=== PATIENT | female | born 1995 | race Hispanic/Latino ===

== ENCOUNTER 2023-04-20 10:51 | Emergency (ER) | payer OTHER, SELFPAY ==
[2023-04-20 11:11] VITALS: BP 121/63; PULSE 99; RESP 16; TEMP 36.7; O2SAT 100
[2023-04-20 11:13] VITALS: BP 121/63; PULSE 99; RESP 16; TEMP 36.7; O2SAT 100
--- NOTE | 2023-04-20 11:58 | ED.FEMALEGU ---
HPI - Female Genitourinary General Chief complaint: Urogenital-Female Stated complaint: UTI/Vaginal Problems Time Seen by Provider: 04/20/23 11:45 Source: patient and certified court/medical interpreter Mode of arrival: ambulatory Limitations: no limitations History of Present Illness HPI Narrative: Patient presents today with a 5 day history of dysuria, urinary frequency with malodorous urine, redness, swelling, and itching to the external genitalia with some yellow vaginal discharge. Canal patient has tried no gapr-hay-vdogilg treatment prior to arrival. Denies concerns for sexually transmitted infections. She is 3 months . Related Data Allergies Allergy/AdvReac Type Severity Reaction Status Date / Time No Known Allergies Allergy Verified 04/20/23 11:12 Review of Systems Review of Systems: CONSTITUTIONAL: Denies body aches, fever, chills, or sweats. EYES: Denies visual changes, redness, or discharge. ENT: Denies rhinorrhea, congestion, sore throat, or otalgia. CARDIOVASCULAR: Denies chest pain, palpitations, or edema. RESPIRATORY: Denies cough or dyspnea. GASTROINTESTINAL: Denies abdominal pain, nausea, vomiting, or diarrhea. GENITOURINARY: + dysuria, frequency, malodorous urine, vaginal discharge, vulvar itching SKIN: Denies rash, itching, or wounds. MUSCULOSKELETAL: Denies back pain, joint pain, or myalgia. NEUROLOGIC: Denies headache, numbness, tingling, or weakness. PSYCH: Denies depression or anxiety. PMFSH Comments At time of signature, I have reviewed and agree with nursing past medical, surgical, social and family history unless otherwise noted. Please see nursing chart for further information. There is no relevant family history pertinent to the presenting complaint Exam Narrative: GENERAL: Well-appearing, well-nourished, and in no acute distress. HEAD: Normocephalic, atraumatic. EYES: EOMI. No redness or drainage. Conjunctivae normal. ENT: Mucous membranes pink and moist. NECK: Normal AROM. CHEST: No respiratory distress. : There is thick white discharge present on the vulva. EXTREMITIES: Normal range of motion. No edema. SKIN: Warm, dry, no rash. Capillary refill normal. Normal skin turgor. NEURO: No focal deficits. Alert and oriented x3. Gait steady. PSYCH: Normal affect. No signs of depression or anxiety. Course Course Level of Care: Express Care Visit Vital Signs Vital signs: Vital Signs Temperature 98.1 F 04/20/23 11:11 Pulse Rate 99 04/20/23 11:11 Respiratory Rate 16 04/20/23 11:11 Blood Pressure 121/63 04/20/23 11:11 Pulse Oximetry 100 04/20/23 11:11 Oxygen Delivery Room Air 04/20/23 11:11 Temperature 98.1 F 04/20/23 11:13 Pulse Rate 99 04/20/23 11:13 Respiratory Rate 16 04/20/23 11:13 Blood Pressure 121/63 04/20/23 11:13 Pulse Oximetry 100 04/20/23 11:13 Oxygen Delivery Room Air 04/20/23 11:13 Reviewed MDM - Female Genitourinary MDM Narrative Medical decision making narrative: Due to patient's urinary symptoms, will treat her with Macrobid as she is . Will also treat her with fluconazole due to her exam findings of likely Sigrid. Differential Diagnosis Differential diagnosis: Likely urinary tract infection, vaginitis and cystitis Lab Data Attestation: I reviewed the patient's lab results. Labs: Urine Glucose Negative Reference Range: Negative Urine Bilirubin Negative Reference Range: Negative Urine Ketone Negative Reference Range: Negative Urine Specific Zanoni 1.020 Reference Range:1.001-1.035 Urine Blood Negative Reference Range: Negative * *
== END 2023-04-20 12:16 | disposition home or self-care (01) ==
PROVIDERS: Emergency Provider Nurse Practitioner; PCP Emergency Medicine
DX: N76.0 Acute vaginitis (principal); N30.00 Acute cystitis without hematuria
CPT/HCPCS: 81003; 87086; 87088; 99213; G0463

== ENCOUNTER 2023-05-25 17:21 | Emergency (ER) | payer OTHER, SELFPAY ==
--- NOTE | 2023-05-25 17:23 | ED.FEMALEGU ---
HPI - Female Genitourinary General Chief complaint: Urogenital-Female Stated complaint: urinary issue,back pain Time Seen by Provider: 05/25/23 17:23 Source: patient Mode of arrival: ambulatory Limitations: no limitations History of Present Illness HPI Narrative: Patient is a 28-year-old female that presents with 5 days of burning with urination, increased frequency and urgency. Patient reports low back pain started yesterday. Denies any fever, chills, nausea, vomiting, diarrhea. Reports last UTI was a long time ago. MD elicited complaint: dysuria Related Data Allergies Allergy/AdvReac Type Severity Reaction Status Date / Time No Known Allergies Allergy Verified 05/25/23 17:58 Review of Systems Review of Systems: All systems reviewed & are unremarkable except as noted in HPI and below Constitutional: Constitutional: Denies chills, Denies fever(s), Denies headache(s), Denies malaise and Denies weakness Eyes: Eyes: Denies change in vision, Denies eye discharge and Denies irritation ENT: Denies otalgia, Denies headache(s), Denies nasal congestion, Denies nasal discharge, Denies sinus pain and Denies sore throat Cardiovascular: Cardiovascular: Denies chest pain, Denies edema, Denies palpitations and Denies dyspnea Respiratory: Respiratory: Denies cough and Denies dyspnea Gastrointestinal: Gastrointestinal: Denies abdominal pain, Denies diarrhea, Denies nausea and Denies vomiting Genitourinary: Genitourinary: Denies hematuria, Reports nocturia, Reports dysuria, Reports flank pain and Reports urinary urgency Musculoskeletal: Musculoskeletal: Denies back pain and Denies numbness Integumentary/Breasts: Skin/Breast: Denies pruritus and Denies rash Neurologic: Denies headache(s), Denies numbness and Denies weakness Psychiatric: Psychiatric: Reports no additional psychiatric complaints Endocrine: Endocrine: Denies palpitations PMFSH Comments At time of signature, agree with nursing past medical, surgical, social and family history. There is no relevant family history pertinent to the presenting complaint. Exam Const: General: cooperative, healthy appearing, comfortable, no acute distress and well nourished Nutritional Appearance: well nourished Orientation/consciousness: patient oriented x3 HENMT: Head: normocephalic and atraumatic Ears: external ears normal Face/Nose/Sinus: Normal external nose present, Normal nares present and normal facial exam Face and sinus: normal facial exam Eyes: General: appearance normal, both eyes and all related structures Pupils: Equal, round and reactive pupils present EOM: EOMs intact bilaterally Neck: Neck: normal visual inspection, full ROM and supple Chest: Chest palpation & inspection: normal inspection of the chest Resp: Effort & Inspection: normal respiratory effort and able to speak in complete sentences Cardio: Rate: regular rate Rhythm: regular rhythm GI: Inspection: normal to inspection GI Palp: No abdominal tenderness and Yes Soft to palpation : General: Yes no CVA tenderness Back/Spine/Pelvis: Back: no CVA tenderness Skin: General skin exam: normal color and no rashes or lesions noted Neuro: General: patient oriented x3 and moves all extremities Cranial nerves: Yes Equal, round and reactive pupils present Extrem: General: normal to inspection and full ROM Psych: Appearance: grossly normal and well kempt Course Course Emergency Course: Patient is aware of diagnosis, understands and agrees to treatment plan. Anticipatory guidance given. Patient agrees to follow-up as directed and is aware of reasons to seek care at the emergency department. Portions of this record may have been created with voice recognition software Level of Care: Express Care Visit Vital Signs Vital signs: Vital Signs Temperature 37.8 C H 05/25/23 17:43 Pulse Rate 111 H 05/25/23 17:43 Respiratory Rate 16 05/25/23 17:43 Blood Pressure 133/70 05/25/23 17:43 Pulse
[2023-05-25 17:43] VITALS: BP 133/70; PULSE 111; RESP 16; TEMP 37.8; O2SAT 99
== END 2023-05-25 18:04 | disposition home or self-care (01) ==
PROVIDERS: Emergency Provider Nurse Practitioner Family
DX: N30.01 Acute cystitis with hematuria (principal)
CPT/HCPCS: 81003; 87077; 87086; 87088; 99203; G0463

== ENCOUNTER 2023-06-15 18:10 | Emergency (ER) | payer OTHER, SELFPAY ==
[2023-06-15] VITALS (7 sets, daily range): BP systolic 105–177; BP diastolic 69–90; PULSE 78–88; RESP 14–16; TEMP 36.5–36.7; O2SAT 97–100
--- NOTE | ~2023-06-15 | CT_ITS ---
EXAMINATION: CT brain wo con INDICATION: Left-sided numbness COMPARISON: None TECHNIQUE: Standard unenhanced head CT. The dose-length product (DLP) was 605.33 mGy-cm. The mA was a djusted according to patient size. Iterative reconstruction technique was employed. FINDINGS: No intracranial hemorrhage, acute infarction, or abnormal mass lesion. The ventricles are n ormal. No abnormal mass effect or midline shift. The wylie-white matter differentiation is normal. The basal cisterns are patent. The orbits are normal. The paranasal sinuses, mastoids and calvarium are normal. IMPRESSION: 1. No acute intracranial abnormality. Reviewed, dictated and finalized at location F. 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
--- NOTE | 2023-06-15 23:05 | PC.NURSE ---
Assumed care of pt. Bedside report from SAVANNA Ackerman. Pt resting quietly per cart with family at bedside. Awaiting erp eval.
[2023-06-16] VITALS: O2SAT 100
--- NOTE | 2023-06-16 | ED.GENADULT ---
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 Reports paresthesias to the left side of the face, entire left arm and entire left leg. Reports that using the arm and putting pressure on the leg seem to worsen the tingling. Denies any loss of strength. Denies speech change, facial droop, confusion, vision change, fevers, chills, headache, neck pain. <Jonathan Dennison PA-C - Last Filed: 06/16/23 03:29> Related Data Allergies/adverse reactions: Allergies Allergy/AdvReac Type Severity Reaction Status Date / Time No Known Allergies Allergy Verified 05/25/23 17:58 <Jonathan Dennison PA-C - Last Filed: 06/16/23 03:29> Review of Systems Review of Systems: All systems as dictated in HPI <CROW Mathews Last Filed: 06/16/23 03:29> Exam Narrative: GENERAL: Well-appearing, well-nourished, and in no acute distress. HEAD: Normocephalic, atraumatic. EYES: PERRLA and EOMI. ENT: Nares clear, no rhinorrhea or epistaxis. Mucous membranes moist. Oropharynx without tonsillar hypertrophy exudate or other lesions. NECK: Supple. No adenopathy or masses. CHEST: No respiratory distress. Clear to auscultation. No wheezes rales or rhonchi HEART: Regular rate and rhythm. No murmur heard. Normal peripheral pulses. ABDOMEN: Soft, nontender, nondistended, normal active bowel sounds. MSK: Normal range of motion. No edema. SKIN: Warm, dry, no rash. no area of erythema or warmth. NEURO: Alert and oriented x4. Cranial nerves 2-12 intact. 5/5 strength and sensation throughout the upper and lower extremities. normal [id number]. Normal heel to paulino. Negative pronator drift PSYCH: Normal mood and affect. <Jonathan Dennison PA-C - Last Filed: 06/16/23 03:29> Course AUTOMATION ARCHITECT/PA Physician Supervision For this patient encounter, I reviewed the AUTOMATION ARCHITECT or PA documentation, treatment plan, and medical decision making and/or I had [id number]-[id number] time with this patient. I performed all aspects of the MDM as documented. <Rocio Braswell MD - Last Filed: 06/19/23 22:26> Vital Signs Vital signs: Vital Signs Temperature 97.7 F 06/15/23 19:18 Pulse Rate 82 06/15/23 19:18 Respiratory Rate 16 06/15/23 19:18 Blood Pressure 130/76 06/15/23 19:18 Pulse Oximetry 100 06/15/23 19:18 Temperature 98.0 F 06/15/23 22:19 Pulse Rate 74 06/16/23 02:07 Respiratory Rate 14 06/16/23 02:07 Blood Pressure 123/71 06/16/23 02:07 Pulse Oximetry 97 06/16/23 02:07 <Jonathan Dennison PA-C - Last Filed: 06/16/23 03:29> Vital Signs Temperature 97.7 F 06/15/23 19:18 Pulse Rate 82 06/15/23 19:18 Respiratory Rate 16 06/15/23 19:18 Blood Pressure 130/76 06/15/23 19:18 Pulse Oximetry 100 06/15/23 19:18 Temperature 98.0 F 06/15/23 22:19 Pulse Rate 74 06/16/23 02:07 Respiratory Rate 14 06/16/23 02:07 Blood Pressure 123/71 06/16/23 02:07 Pulse Oximetry 97 06/16/23 02:07 <Rocio Braswell MD - Last Filed: 06/19/23 22:26> Medical Decision Making MDM Narrative Medical decision making narrative: This is a 28-year-old female who presents to the ED with chief complaint of left-sided facial, arm and leg pares
[2023-06-16 00:03] VITALS: BP 124/94; PULSE 81; RESP 16; O2SAT 100
[2023-06-16 00:15] VITALS: O2SAT 100
[2023-06-16 00:30] VITALS: O2SAT 100
[2023-06-16 00:30] LABS: Basophils Absolute Auto 0.1 K/mm3 (0.0-0.1); Basophils Percent Auto 0.6 % (0.2-1.2); Eosinophils Absolute Auto 0.1 K/mm3 (0-0.3); Hematocrit 37.4 % (37.0-47.0); Hemoglobin 11.8 g/dL (12.0-15.0); Immature Granulocyte Absolute 0.04 K/mm3 (0.00-0.031); Immature Granulocyte Percent A 0.4 % (0-0.5); Lymphocytes Absolute Auto 3.12 K/mm3 (0.9-3.2); Lymphocytes Percent Auto 29.4 % (18.3-44.2); Mean Corpuscular HGB Conc 31.6 g/dl (32-36); Mean Corpuscular Hemoglobin 28.6 pg (26-34); Mean Corpuscular Volume 90.6 fl (80-100); Mean Platelet Volume 9.9 fl (7.4-10.4); Monocytes Absolute Auto 0.9 K/mm3 (0.1-0.6); Monocytes Percent Auto 8.4 % (2.6-8.5); Neutrophils Absolute Auto 6.4 K/mm3 (1.3-6.7); Neutrophils Percent Auto 60.2 % (45.5-73.1); Platelet Count Result 351 k/mm3 (150-375); Red Blood Count 4.13 M/mm3 (4.2-5.4); Red Cell Distribution Width 13.8 % (11.5-14.5); White Blood Count 10.6 K/mm3 (4.5-10.0)
--- NOTE | 2023-06-16 00:39 | ECG_ITS ---
Measurements Intervals [place] Rate: 85 P: 59 MT: 145 QRS: 40 QRSD: 86 T: 38 QT: 367 QTc: 438 Interpretive Statements SINUS RHYTHM NO PREVIOUS ECG AVAILABLE FOR COMPARISON Electronically Signed On 06-16-2023 12:32:24 GENETIC SCIENTIST by Glenn Troncoso M.D.
[2023-06-16 00:41] LABS: Alanine Aminotransferase 25 U/L (6-35); Albumin Level 4.3 g/dL (3.5-5.1); Alkaline Phosphatase 101 U/L (38-126); Anion Gap 7 mmol/L (8-16); Aspartate Amino Transferase 29 U/L (14-36); Bilirubin,Total 0.5 mg/dL (0.2-1.3); Blood Urea Nitrogen 13 mg/dL (7-17); Calcium 9.3 mg/dL (8.4-10.2); Carbon Dioxide 25 mmol/L (22-30); Chloride 106 mmol/L (98-107); Estimated Glomerular Filt Rate > 60; Glucose 109 mg/dL (65-110); INR 1.1; Potassium 3.3 mmol/L (3.4-5.0); Prothrombin Time 14.5 Seconds (11.1-14.7); Sodium 138 mmol/L (137-145)
[2023-06-16 00:42] LABS: Partial Thromboplastin Time 35.1 SECONDS (22.3-36.8)
[2023-06-16 00:45] VITALS: O2SAT 100
[2023-06-16 00:52] LABS: Troponin I < 0.012 ng/mL (0.000-0.034)
[2023-06-16 01:11] LABS: Appearance Urine Cloudy (Clear); Bacteria Urine 2+ /hpf; Bilirubin Urine Negative (Negative); Blood Urine 3+ (Negative); Color Urine Yellow (Yellow); Glucose Urine UA Negative (Negative); Ketones Urine Negative (Negative); Leukocyte Esterase Ur 1+ LEU/UL (Negative); Nitrate Urine Negative (Negative); Non Pathogenic Casts 0-2; Protein Urine Trace mg/dL (Negative); RBC Urine 21-50 /hpf (0-2); Specific Grav Ur 1.023 (1.001-1.035); Squamous Epithelial Cell Urine Moderate /hpf (Few); Urobilinogen Urine 0.2 mg/dL (<2.0); WBC Urine 21-50 /hpf
[2023-06-16 01:19] LABS: Pregnancy On Board Control Positive; Urine Pregnancy Test Negative
[2023-06-16 02:07] VITALS: BP 123/71; PULSE 74; RESP 14; O2SAT 97
[2023-06-16 02:07] LABS: Add Urine Microscopic? YES
== END 2023-06-16 02:08 | disposition home or self-care (01) ==
PROVIDERS: Emergency Provider Physician Assistant; PCP Registered Nurse
DX: R20.2 Paresthesia of skin (principal)
CPT/HCPCS: 36415; 70450; 80053; 81001; 81025; 84484; 85025; 85610; 85730; 87086; 93005; 99284

== ENCOUNTER 2023-07-07 12:17 | Emergency (ER) | payer OTHER, SELFPAY ==
[2023-07-07 12:44] VITALS: BP 128/90; PULSE 106; RESP 16; TEMP 37.2; O2SAT 99
--- NOTE | 2023-07-07 13:45 | ED.URI ---
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 No chest pain or shortness of breath. Patient has felt feverish and has taken naproxen. Denies nausea vomiting diarrhea. All systems reviewed and negative except as noted above. Related Data Home Medications Medication Instructions Recorded Confirmed propranolol 40 mg tablet 40 mg PO BID 07/07/23 07/07/23 Allergies Allergy/AdvReac Type Severity Reaction Status Date / Time No Known Allergies Allergy Verified 07/07/23 12:48 Review of Systems Review of Systems: CONSTITUTIONAL: Denies fever, chills, or sweats. EYES: Denies visual changes, redness, or discharge. ENT: Reports rhinorrhea, congestion, sore throat. Denies otalgia. CARDIOVASCULAR: Denies chest pain, palpitations, or edema. RESPIRATORY: reports cough. Denies dyspnea. GASTROINTESTINAL: Denies abdominal pain, nausea, vomiting, or diarrhea. GENITOURINARY: Denies dysuria or hematuria. SKIN: Denies rash or itching. MUSCULOSKELETAL: Denies back pain, joint pain, or myalgia. NEUROLOGIC: Denies headache, numbness, or weakness. PSYCHIATRIC: Denies anxiety or depression. All other systems reviewed are negative, except as documented in HPI. PMFSH Comments At time of signature, agree with nursing past medical, surgical, social and family history. There is no relevant family history pertinent to the presenting complaint. Exam Narrative: GENERAL: This is a well-nourished, well-developed patient, in no apparent distress. HEAD: normocephalic, atraumatic. EYES: PERRL. Sclera clear/white. Vision is grossly intact. EARS: External ears normal, auditory canals clear and without drainage, TMs normal without perforation. Hearing grossly intact. NOSE: External nose normal with clear nasal drainage, mild erythema to nares. THROAT: Mucous membranes moist, Mild erythema without swelling or exudates. NECK: Neck supple, non-tender without lymphadenopathy, masses or thyromegaly. CARDIOVASCULAR: Regular rate and rhythm without murmurs, gallops, or rubs. RESPIRATORY: Clear to auscultation. Breath sounds equal bilaterally. No wheezes, rales, or rhonchi. SKIN: warm, Dry, intact with no suspicious lesions or rash, good texture and turgor. NEURO: awake, alert, and oriented to person, place and time. There were no obvious focal neurologic abnormalities. EXTREMITIES: No joint tenderness, effusion, or edema noted. Course Course Level of Care: Express Care Visit Vital Signs Vital signs: Vital Signs Temperature 37.2 C 07/07/23 12:44 Pulse Rate 106 H 07/07/23 12:44 Respiratory Rate 16 07/07/23 12:44 Blood Pressure 128/90 07/07/23 12:44 Pulse Oximetry 99 07/07/23 12:44 Oxygen Delivery Room Air 07/07/23 12:44 Temperature 37.2 C 07/07/23 12:44 Pulse Rate 106 H 07/07/23 12:44 Respiratory Rate 16 07/07/23 12:44 Blood Pressure 128/90 07/07/23 12:44 Pulse Oximetry 99 07/07/23 12:44 Oxygen Delivery Room Air 07/07/23 12:44 Reviewed MDM - URI/Sore Throat MDM Narrative Medical decision making narrative: Patient is aware of diagnosis, understands and agrees to treatment plan. Anticipatory guidance given. Patient agrees to follow-up as directed and is aware of reasons to seek care at the emergency department. Portions of this record may have been created with voice recognition software Differential Diagnosis Differential diagnosis: Likely other ( COVID-19) Discharge Plan Discharge Clinical Impression: COVID-19 Patient Disposition: Home, Self-Care Condition: Stable Instructions: COVID-19 (Coronavir
== END 2023-07-07 14:35 | disposition home or self-care (01) ==
PROVIDERS: Emergency Provider Nurse Practitioner Family; PCP Registered Nurse
DX: U07.1 COVID-19 (principal)
CPT/HCPCS: 87081; 87426; 87804; 87880; 99213; G0463

== ENCOUNTER 2023-08-31 09:33 | Outpatient (CLI) | payer OTHER, SELFPAY ==
[2023-08-31 10:26] LABS: Hemoglobin A1C 5.5 % (<5.7)
[2023-08-31 10:45] LABS: Free T4 Free Thyroxine 0.98 ng/mL (0.78-2.19)
[2023-09-02 07:34] LABS: Triiodothyronine T3 Free 3.4 pg/mL (2.3-4.2)
[2023-09-03 21:04] LABS: Red Blood Cell Folate 540 ng/mL RBC (>280)
[2023-09-05 11:18] LABS: Vitamin D 1,25 (OH)2 Total 33 pg/mL (18-72); Vitamin D2 1,25 (OH)2 <8 pg/mL; Vitamin D3 1,25 (OH)2 33 pg/mL
== END 2023-08-31 09:34 | disposition home or self-care (01) ==
LOC: ANHLAB 09:35
PROVIDERS: PCP Registered Nurse; Visit Provider Psychiatry & Neurology Neurology
DX: E55.9 Vitamin D deficiency, unspecified (principal); R20.0 Anesthesia of skin; G43.909 Migraine, unspecified, not intractable, without status migrainosus
CPT/HCPCS: 36415; 82607; 82652; 82747; 83036; 84439; 84481; 86038; 86039

== ENCOUNTER 2023-09-13 15:41 | Outpatient (CLI) | payer OTHER, SELFPAY ==
--- NOTE | ~2023-09-13 | MR_ITS ---
EXAMINATION: MR brain/brain stem wo/w con DATE: 09/13/2023 16:33 INDICATION: Multiple sclerosis. Headache. Left-sided numbness. TECHNIQUE: Magnetic resonance imaging (MRI) of the brain and brainstem was performed without and with 13 mL MultiHance intravenous contrast. COMPARISON: Head CT 06/16/2023 FINDINGS: There is no intracranial hemorrhage, acute infarction, or abnormal intracranial mass lesion . The ventricles are normal in size. There is mucosal thickening in the paranasal sinuses. The orbits are normal. The mastoid air cells are normal. IMPRESSION: 1. Normal brain. Reviewed, dictated and finalized at location E. IMPRESSION: 1. Normal brain.
== END 2023-09-13 15:42 | disposition home or self-care (01) ==
LOC: ANHIMG 15:42
PROVIDERS: PCP Registered Nurse; Visit Provider Psychiatry & Neurology Neurology
DX: G35 Multiple sclerosis (principal); R20.0 Anesthesia of skin; G43.909 Migraine, unspecified, not intractable, without status migrainosus
CPT/HCPCS: 70553; A9577

== ENCOUNTER 2023-09-21 13:21 | Emergency (ER) | payer OTHER, SELFPAY ==
[2023-09-21 13:22] VITALS: BP 90/74; PULSE 100; RESP 22; TEMP 36.6; O2SAT 100
--- NOTE | 2023-09-21 15:03 | PC.NURSE ---
called patient to room, no answer from waiting room
== END 2023-09-21 15:03 | disposition left against medical advice (07) ==
LOC: ANHED 15:42
PROVIDERS: PCP Registered Nurse
DX: R42 Dizziness and giddiness (principal)
CPT/HCPCS: 99199

== ENCOUNTER 2023-10-02 12:43 | Outpatient (CLI) | payer OTHER, SELFPAY ==
--- NOTE | 2023-10-02 12:59 | ECHO_ITS ---
Patient Info Name: Og Hines Age: 28 years : 1995 Gender: Female Ht: 59 in Wt: 142 lbs BSA: 1.66 m2 HR: 76 bpm Technical Quality: Fair Exam Date: 10/02/2023 1:17 PM Exam Location: Echo Lab Patient Status: Outpatient Admit Date: 10/02/2023 Staff Ordering Physician: Calixto Dukes MD Assembly Cleaner: Fabienne Fernández RDCS Attending Provider: Calixto Dukes MD Referring Physician: Ernst RODRIGUEZ; Exam Type: CA echo doppler w bubble study Study Info Indications - G43.909 Migraine Complete two-dimensional, color flow and Doppler transthoracic echocardiogram is performed with agitated saline. Contrast/Agitated Saline Contrast/Ag. Saline: Agitated Saline Amount: 21.00 ml IV Access Condition: patent with no signs of infiltration Summary 1. Left ventricular chamber dimension is normal. 2. Left ventricular systolic function is normal, estimated at 65-70%. 3. The left ventricular diastolic function is normal. 4. E/e' 8 is minimally elevated. 5. Agitated saline injection with and without valsalva maneuver opacified right side cardiac chambers with shunt of few bubbles (<5) to left sided cardiac chambers suggestive of patent foramen ovale. Left Ventricle E/e' 8 is minimally elevated. Left ventricular chamber dimension is normal. Left ventricular systolic function is normal, estimated at 65-70%. The left ventricular diastolic function is normal. Right Ventricle Right ventricular chamber dimension is normal. Right ventricular systolic function is normal. Left Atria Left atrial chamber dimension is normal. Right Atria Right atrial chamber dimension is normal. Atrial Septum Agitated saline injection with and without valsalva maneuver opacified right side cardiac chambers with shunt of few bubbles (<5) to left sided cardiac chambers suggestive of patent foramen ovale. Suspected patent foramen ovale visualized by 2D and agitated saline imaging. Aortic Valve The aortic valve is trileaflet. There is no aortic valve stenosis. There is no aortic valve regurgitation. Pulmonic Valve There is no pulmonic regurgitation. Mitral Valve There is no mitral valve stenosis. There is no mitral valve regurgitation. Tricuspid Valve There is mild tricuspid valve regurgitation. No pulmonary hypertension, estimated pulmonary arterial systolic pressure is 36 mmHg. Pericardium/Pleural There is no pericardial effusion. Inferior Vena Cava Normal inferior vena cava with >50% collapse upon inspiration consistent with normal right atrial pressure, 5 mmHg. Aorta The aortic root size at the sinus of Valsalva is normal. Left Ventricular Outflow Tract Name Value Normal LVOT 2D LVOT Diameter 1.9 cm LVOT Doppler LVOT Peak Velocity 118 cm/s LVOT Peak Gradient 6 mmHg LVOT Mean Gradient 3 mmHg LVOT VTI 22 cm LVOT VTI/AV VTI Ratio 0.8 LVOT Stroke Volume 67 ml LVOT CO 4.9 l/min LVOT CI 2.9 l/min/m2 Pulmonic Valve
== END 2023-10-02 12:44 | disposition home or self-care (01) ==
PROVIDERS: PCP Registered Nurse; Visit Provider Psychiatry & Neurology Neurology
DX: G43.909 Migraine, unspecified, not intractable, without status migrainosus (principal); R20.0 Anesthesia of skin
CPT/HCPCS: 93306; 96375

== ENCOUNTER 2024-05-25 09:57 | Emergency (ER) | payer SELFPAY ==
--- NOTE | ~2024-05-25 | XR_ITS ---
XR chest 2V DATE: 05/25/2024 10:39 INDICATION: Right chest and upper back pain. Nonsmoker. TECHNIQUE: 2 views COMPARISON: None FINDINGS: Normal heart size. No hilar or mediastinal enlargement. No pulmonary infiltrate or consolid ation, pleural effusion or pulmonary vascular congestion or pneumothorax. Mild thoracic levoscoliosis. IMPRESSION: No active pulmonary disease Mild levoscoliosis Reviewed, dictated and finalized at location A. M[facility] RE[facility]ORNEY
--- NOTE | 2024-05-25 10:06 | ED_ITS ---
HPI - Back Pain/Injury General Chief Complaint: Back Pain/Injury Stated Complaint: cough/chest pain,bone pain in upper back Time Seen by Provider: 05/25/24 10:07 Source: patient and full time staff interpreter Mode of arrival: ambulatory Limitations: no limitations History of Present Illness HPI Narrative: Og is a 29-year-old female patient presenting to the clinic today with complaints of cough, chest, and upper back pain. She reports that she has had back pain for the last month and over the last 1-2 days she has developed cough and it causes some chest discomfort with coughing. States that the pain is about a 7 at a 10 currently but when she lays down at night it a 10/10. States that the pain is a burning pain that is worse with taking deep breaths. No known injury. Has not lifted any heavy objects. Pain is across her chest and across her thoracic back. No fevers or URI symptoms. Has been taking ibuprofen for the pain. Has not seen her primary care doctor for her symptoms. No cardiac history. History of diabetes and migraine headaches. She is a nonsmoker. Last menstrual period was last month and denies being . Related Data Home Medications ?Medication ?Instructions ?Recorded ?Confirmed ?Last Taken ?Type propranolol 40 mg tablet 40 mg PO BID 07/07/23 08/29/23 Unknown History Allergies Allergy/AdvReac Type Severity Reaction Status Date / Time No Known Allergies Allergy Verified 10/30/23 09:42 Review of Systems Review of Systems: Pertinent positives per HPI. Patient denies any fever, chills, rash, headache, visual changes, dizziness, palpitations, nausea, vomiting, diarrhea, constipation, abdominal pain, or any urinary issues. [facility] Past Medical History Medical History Diabetes mellitus CAMILA positive Numbness and tingling of left lower extremity Migraine Left sided numbness Social History Social History Smoking status: Never smoker Alcohol intake: current Alcohol use details: Sometimes Substance use: never Substance use type: does not use Do You Feel Safe in your Home?: Yes Lack of Transportation: No Lack of Food: Never True Current Housing: I Have Housing Concerned About Future Housing: No Difficulty Paying Gas/Electric Bills: No Difficulty Paying for Meds: No Currently Unemployed: No Education: Decline to Answer Difficulty w/ Childcare or Family Care: No Comments At the time of my signature, I reviewed and agree with the nursing past medical, surgical, social, and family history. There is no relevant family history pertinent to the patient complaint. Exam Narrative: General: Well-developed, well nourished, in no apparent distress Head: Normocephalic, atraumatic Eyes: Pupils equally round and reactive to light bilaterally, EOM intact, sclera and conjunctive clear, no discharge, lids normal Ears: TMs intact and clear, ear canals clear, no drainage, grossly hearing normal. Nose: Nares patent, no discharge, no inflammation, no sinus tenderness. Mouth: Oropharynx without lesions or masses, good dentition, MMM. Neck: Supple, trachea midline, no enlargement of anterior or posterior cervical nodes, no thyroid masses or goiter palpable. Cardio: Regular rate and rhythm, s1 and s2 normal, no murmur appreciated. Resp: Clear to auscultation bilaterally anteriorly and posteriorly, no rhonchi, rales, wheezing or rubs Musculoskeletal: No deformity, tender to palpation over the anterior chest wall more on the right side as well as over the midthoracic back, pain worsens with inspiration, grossly normal range of motion, muscle strength strong and equal, peripheral pulse strong, no edema, no cyanosis, normal gait and station Course Course Emergency Course: Portions of this record may have been created with voice recognition software. Level of Care: Express Care Visit Vital Signs Vital signs: Vital Signs Temperature 36.9 C 05/25/24 10:11 Pulse Rate 89 05/25/24 10:11 Respiratory Rate 16 05/25/24 10:11 Blood Pressure 112/80 05/25/24 10:11 Pulse Oximetry 99 05/25/24 10:11 Oxygen Delivery Room Air 05/25/24 10:11 Temperature 36.9 C 05/25/24 10:11 Pulse Rate 89 05/25/24 10:11 Respiratory Rate 16 05/25/24 10:11 Blood Pressure 112/80 05/25/24 10:11 Pulse Oximetry 99 05/25/24 10:11 Oxygen Delivery Room Air 05/25/24 10:11 Vital signs reviewed MDM - Back Pain/Injury MDM Narrative Medical decision making narrative: At the time of visit patient is resting comfortably on the exam table. Patient appears to be nontoxic. EKG: EKG shows sinus rhythm with heart rate of 86 beats per minute without ST elevation, depression, or T-wave inversion. Diagnostics: Chest x-ray was performed Plan: Well and PERC criteria 0 points for PE indicating very low chance. Supportive measures were discussed with the patient and they voiced understanding discharge instructions and agrees to treatment plan. Return precautions reviewed Wells Criteria for PE-0.0?points Low risk group: 1.3% chance of PE in an ED population. Another study assigned scores <=4 as ?PE Unlikely? and had a 3% incidence of PE. PERC Criteria 0?criteria No need for further workup, as <2% chance of PE. If no criteria are positive and clinician?s pre-test probability is <15%, PERC Rule criteria are satisfied. Differential Diagnosis Differential diagnosis: Likely thoracic back pain, AAA, discitis and other (Pleurisy, atypical chest pain, chest wall pain, costochondritis, pneumonia, PE) ECG Data EKG #1: Attestation: I personally reviewed and interpreted this ECG as follows: ECG completion date: 05/25/24 ECG completion time: 10:32 Prior ECG tracings: not available for review Interpretation: EKG shows normal sinus rhythm with heart rate of 86 beats per minute without ST elevation, depression, or T-wave inversion. AL interval is 156 milliseconds, QRS duration 76 milliseconds, QT-QTC is 337-380 milliseconds, P-R-T axis is 60 46 42 Discharge Plan Discharge Clinical Impression: Pleurisy without effusion Patient Disposition: Home, Self-Care Condition: Stable Instructions: Antibiotic Form, Pleurisy (ED) Additional Instructions: Los criterios de Wells y los criterios PERC muestran un riesgo muy bajo de embolia pulmonar. Radiograf?as de t?rax negativas para cualquier proceso cardiopulmonar ledy. El electrocardiograma es normal en la cl?john hoy. Boon los medicamentos recetados s?lo seg?n lo prescrito: Medrol Dosepak y Tessalon Pearls Aumente los l?quidos y mant?ngase jocelyn hidratado. Tylenol/motrin para el dolor/fiebre Flonase y antihistam?nicos de venta jessica seg?n las indicaciones Vicks vapor frot para abrir los senos nasales Enjuagues sinusales para la congesti?n Cepacol spray, pastillas para la tos, pastillas para la garganta, t? caliente con miel/yeager?n, g?rgaras con agua salada para calmar la garganta Dieta BRAT para la diarrea L?quidos siria x 24 horas y luego avanzar seg?n la tolerancia para n?useas/v?mitos Vaya al servicio de urgencias si wilson afecci?n empeora: fiebre alpesh que no se controla con Tylenol o Motrin, deshidrataci?n, debilidad, letargo, dificultad para respirar o dolor en el pecho. Frantz un seguimiento con wilson PCP en 3 a 5 d?as si los s?ntomas persisten. Patient Language: Estonian Prescriptions: New benzonatate 200 mg capsule 200 mg PO TID 7 Days Qty: 21 0RF methylprednisolone [Medrol (Honorio)] 4 mg tablets,dose pack See Rx Instructions .ROUTE .COMPLEX Qty: 21 0RF Rx Instructions: orally per package directions No Action propranolol 40 mg tablet 40 mg PO BID benzonatate 200 mg capsule 200 mg PO TID PRN (Reason: cough) Qty: 20 0RF guaifenesin [Mucinex] 600 mg tablet extended release 12hr 600 mg PO BID 10 Days Qty: 20 0RF acetaminophen 500 mg capsule 1,000 mg PO Q6H PRN (Reason: fever or pain) Qty: 40 0RF Follow-up/Referrals: Amari,ANGEL Barron [Primary Care Provider] - Time of Disposition: 10:50 Quality NIHSS Nursing Documentation ED NIHSS nursing documentation: reviewed/agree
[2024-05-25 10:11] VITALS: BP 112/80; PULSE 89; RESP 16; TEMP 36.9; O2SAT 99
--- NOTE | 2024-05-25 10:23 | ECG_ITS ---
Test Date: 2024-05-25 10:32:42 Measurements Intervals [place] Rate: 86 P: 60 MO: 156 QRS: 46 QRSD: 76 T: 42 QT: 337 QTc: 404 Interpretive Statements SINUS RHYTHM NORMAL ECG No previous ECG available for comparison Electronically Signed On 05-25-2024 15:32:21 [employer]L[facility] by Jordin Griggs M.D.
== END 2024-05-25 11:13 | disposition home or self-care (01) ==
PROVIDERS: Emergency Provider Nurse Practitioner Family; PCP Registered Nurse
DX: J90 Pleural effusion, not elsewhere classified (principal); E11.9 Type 2 diabetes mellitus without complications
CPT/HCPCS: 71046; 93005; 99213; G0463

== ENCOUNTER 2024-07-02 11:41 | Emergency (ER) | payer SELFPAY ==
--- NOTE | ~2024-07-02 | XR_ITS ---
Clinical Indication: Cough, chest pain PA and lateral views of the chest: Comparison: 05/25/2024 Findings: The lungs are clear, without evidence of focal consolidation or pleural effusion. Cardiome diastinal silhouette is within normal limits. Bones and soft tissues are unremarkable. Impression: Normal chest. Reviewed, dictated and finalized at [facility]. OPERATOR Impression: Normal chest.
--- OUTSIDE RECORDS SUMMARY | 2024-07-02 11:44 | XMS_ITS | Data Portability ---
Author Organization [facility] [employer] , [facility] Address [address] [place] [address] Care Team Providers Care Client Leader Name Role Phone [facility] Supervisor Dumping Assessment No assessment recorded. Plan of Treatment Reminders Order Date Submit Date Provider Last Modified By Organization Details Last Modified Time Details Appointments None recorded. Lab pap, LB 2022 023 [facility], [address] [place], [address], 3 15:06:35 HPV E6+E7 mRNA, qualitative PCR, cervix 2022 023 [facility], [address] [place], [address], 3 14:17:00 streptococc us group B, culture, unspecified specimen 2022 023 [employer] [facility], [address] [place], [address], 3 10:59:32 Referral None recorded. Procedures None recorded. Surgeries None recorded. Imaging US, obstetric, biophysical profile + non-stress test 2022 023 [email or web address], [address], [place], [address], 3 15:21:44 Medication Orders None recorded. Patient TargetsNo targets recorded. Patient Instructions Encounter Date Encounter Id Patient Instructions Last Modified By Organization Details Last Modified Time 03/30/2023 [id number] Care at Home With Your Baby: Care Instructions Not available 03/30/2023 16:26:51 control after counseling Not available 03/30/2023 16:26:51 after : exercises Not available 03/30/2023 16:26:51 depression after childbirth: care instructions Not available 03/30/2023 16:26:51 Reason for Referral None Reported. Results Created Date Observation Date Name Description Value Unit Range Abnormal Flag Note LastModifiedBy Organization Detail LastModifiedTime 12/27/1912/27/2022 CBC (INCL UDES DIFF/ PLT) WBC 6.6 thous and/u L 4.0 - 9.8 normal [place], [address], 12/27/2022 11:42:34 12/27/19 23 12/27/2022 CBC (INCL UDES DIFF/ PLT) RBC 3.5 kimberley on/uL 3.9 - 4.9 low [place], [address], 12/27/2022 11:42:34 12/27/19 23 12/27/2022 CBC (INCL UDES DIFF/ PLT) hemoglobin 10.7 g/dL 11.8 - 14.8 low [place], [address], 12/27/2022 11:42:34 12/27/19 23 12/27/2022 CBC (INCL UDES DIFF/ PLT) hematocrit 32.8 % 35.5 - 44.0 low [place], [address], 12/27/2022 11:42:34 12/27/19 23 12/27/2022 CBC (INCL UDES DIFF/ PLT) MCV 93.4 fL 82.0 - 99.0 normal [place], [address], 12/27/2022 11:42:34 12/27/19 23 12/27/2022 CBC (INCL UDES DIFF/ PLT) MCH 30.5 pg 27.2 - 32.6 normal Not Available [address], [address], 12/27/2022 11:42:34 12/27/19 23 12/27/2022 CBC (INCL UDES DIFF/ PLT) MCHC 32.6 g/dL 31.5 - 35.5 normal Not Available [address], [address], 12/27/2022 11:42:34 12/27/19 23 12/27/2022 CBC (INCL UDES DIFF/ PLT) RDW-CV 13.7 % 11.5 - 14.5 normal Not Available [address], [address], 12/27/2022 11:42:34 12/27/19 23 12/27/2022 CBC (INCL UDES DIFF/ PLT) platelet 253 thous and/u L 140 - 350 normal Not Available [address], [address], 12/27/2022 11:42:34 12/27/19 23 12/27/2022 CBC (INCL UDES DIFF/ PLT) MPV 11.3 fL 9.3 - 12.4 normal Not Available [address], [address], 12/27/2022 11:42:34 12/27/19 23 12/27/2022 CBC (INCL UDES DIFF/ PLT) absolute neutrophil 4.59 thous and/u L 1.90 - 7.00 normal Not Available [address], [address], 12/27/2022 11:42:34 12/27/19 23 12/27/2022 CBC (INCL UDES DIFF/ PLT) absolute lymphocyte 1.38 thous and/u L 0.70 - 4.50 normal Not Available [address], [address], 12/27/2022 11:42:34 12/27/19 23 12/27/2022 CBC (INCL UDES DIFF/ PLT) absolute monocyte 0.58 thous and/u L 0.10 - 1.30 normal Not Available [address], [address], 12/27/2022 11:42:34 12/27/19 23 12/27/2022 CBC (INCL UDES DIFF/ PLT) absolute eosinophil 0.02 thous and/u L <0.70 normal Not Available [address], [address], 12/27/2022 11:42:34 12/27/19 23 12/27/2022 CBC (INCL UDES DIFF/ PLT) absolute basophil 0.03 thous and/u L <0.20 normal Not Available [address], [address], 12/27/2022 11:42:34 12/27/19 23 12/27/2022 CBC (INCL UDES DIFF/ PLT) absolute immature granulocyte 0.02 thous and/u L <0.03 normal Not Available [address], [address], 12/27/2022 11:42:34 12/27/19 23 12/28/2022 COMPR EHENS SOFIA METAB OLIC PANEL sodium 139 mmol/ L 136 - 145 normal Not Available [address], [address], 12/28/2022 16:30:48 12/27/19 23 12/28/2022 COMPR EHENS SOFIA METAB OLIC PANEL potassium 3.9 mmol/ L 3.5 - 5.1 normal Not Available [address], [address], 12/28/2022 16:30:48 12/27/19 23 12/28/2022 COMPR EHENS SOFIA METAB OLIC PANEL chloride 105 mmol/ L 98 - 107 normal Not Available [address], [address], 12/28/2022 16:30:48 12/27/19 23 12/28/2022 COMPR EHENS SOFIA METAB OLIC PANEL glucose 117 mg/dL 74 - 106 high Not Available [address], [address], 12/28/2022 16:30:48 12/27/19 23 12/28/2022 COMPR EHENS SOFIA METAB OLIC PANEL carbon dioxide 24 mmol/ L 20 - 32 normal Not Available [address], [address], 12/28/2022 16:30:48 12/27/19 23 12/28/2022 COMPR EHENS SOFIA METAB OLIC PANEL calcium 8.9 mg/dL 8.5 - 10.1 normal Not Available [address], [address], 12/28/2022 16:30:48 12/27/19 23 12/28/2022 COMPR EHENS SOFIA METAB OLIC PANEL creatinine 0.47 mg/dL 0.60 - 1.00 low Not Available [address], [address], 12/28/2022 16:30:48 12/27/19 23 12/28/2022 COMPR EHENS SOFIA METAB OLIC PANEL eGFR 134 mL/mi n/1.7 3m2 >60 normal The eGFR is based on the CKD-E PI 2020 equat ion. To calcu late the new eGFR from a previ ous Creat inine or Cysta oren C resul t, go to https ://piyush tapia/rodrigo matos s/lorettao qi/gf r_cal culat or Not Available [address], [address], 12/28/2022 16:30:48 12/27/19 23 12/28/2022 COMPR EHENS SOFIA METAB OLIC PANEL AST 19 U/L 32 - 40 low Not Available [address], [address], 12/28/2022 16:30:48 12/27/19 23 12/28/2022 COMPR EHENS SOFIA METAB OLIC PANEL ALT 12 U/L 14 - 59 low Not Available [address], [address], 12/28/2022 16:30:48 12/27/19 23 12/28/2022 COMPR EHENS SOFIA METAB OLIC PANEL alk phos 159 U/L 46 - 116 high Not Available [address], [address], 12/28/2022 16:30:48 12/27/19 23 12/28/2022 COMPR EHENS SOFIA METAB OLIC PANEL albumin 2.6 g/dL 3.4 - 5.0 low Not Available [address], [address], 12/28/2022 16:30:48 12/27/19 23 12/28/2022 COMPR EHENS SOFIA METAB OLIC PANEL protein, total 6.3 g/dL 6.4 - 8.2 low Not Available [address], [address], 12/28/2022 16:30:48 12/27/19 23 12/28/2022 COMPR EHENS SOFIA METAB OLIC PANEL bilirubin, total 0.4 mg/dL 0.2 - 1.0 normal Not Available [address], [address], 12/28/2022 16:30:48 12/27/19 23 12/28/2022 COMPR EHENS SOFIA METAB OLIC PANEL urea nitrogen (BUN) 8 mg/dL 6 - 31 normal Not Available [address], [address], 12/28/2022 16:30:48 12/27/19 23 12/28/2022 PROT/ CREAT - U RANDO M protein, urine 26 mg/dL 6 - 24 high Not Available [address], [address], 12/28/2022 17:23:43 12/27/19 23 12/28/2022 PROT/ CREAT - U RANDO M creatinine, urine 121 mg/dL 20 - 275 normal Not Available [address], [address], 12/28/2022 17:23:43 12/27/19 23 12/28/2022 PROT/ CREAT - U RANDO M protein/crea tinine ratio, random urine 0.213 mg/mg _crea t 0.024 - 0.184 high Not Available [address], [address], 12/28/2022 17:23:43 01/20/20 23 01/22/2023 STREP TOCOC CUS, GROUP B CULTU RE streptococcu s, group B culture SEE NOTE STREP TOCOC CUS, GROUP B CULTU RE Micro Numbe r: [id number] Test Statu s: Final Speci men Sourc e: Not given Speci men Quali ty: Adequ ate Resul t: No group B Strep tococ cus isola kashif Note per CDC guide lines optim al recov nalini is achie dario by swabb ing both the lower vagin a and rectu m (thro ugh the anal sphin cter) . Not Available [facility] [address] [place], [address], 01/22/2023 10:59:32 03/30/2004/02/2023 HPV HIGH RISK HPV high risk Negati ve negati ve normal The HPV High Risk assay is inten ded for use as co-te sting with cytol ogy and not as a subst itute for regul ar cervi henry cytol ogy scree janelle. This assay is not inten ded for use as a scree janelle devic e for women under age 30 with agatha l cervi henry cytol ogy. Not Available [facility] [address] [place], [address], 04/02/2023 14:17:00 03/30/2004/04/2023 THINP REP TIS PAP clinical information: normal None given Not Available [facility] [address] [address] [place], [address], 04/04/2023 15:06:35 03/30/20 23 04/04/2023 THINP REP TIS PAP LMP: normal NONE GIVEN Not Available [address] [address] [place], [address], 04/04/2023 15:06:35 03/30/20 23 04/04/2023 THINP REP TIS PAP prev. Pap: normal NONE GIVEN Not Available [address] [address] [place], [address], 04/04/2023 15:06:35 03/30/20 23 04/04/2023 THINP REP TIS PAP prev. BX: normal NONE GIVEN Not Available [address] [place], [address], 04/04/2023 15:06:35 03/30/20 23 04/04/2023 THINP REP TIS PAP source: normal None given Not Available [address] [place], [address], 04/04/2023 15:06:35 03/30/20 23 04/04/2023 THINP REP TIS PAP statement of adequacy: normal Satis facto ry for evalu ation . Endoc ervic al/tr ansfo rmati on zone compo nent prese nt. Age and/o r menst rual statu s not provi ded Not Available [facility] [address] [place], [address], 04/04/2023 15:06:35 03/30/20 23 04/04/2023 THINP REP TIS PAP interpretati on/result: normal Cytol ogy Resul ts: Negat sofia for intra epith elial lesio n or danette workman . Not Available [facility] [address] [place], [address], 04/04/2023 15:06:35 03/30/20 23 04/04/2023 THINP REP TIS PAP comment: normal This case could not be evalu ated with compu ter lidia kashif techn ology . The slide was carmen sethi screjose f serafin accor ding to doris hughes . Not Available [facility] [address] [place], [address], 04/04/2023 15:06:35 03/30/20 23 04/04/2023 THINP REP TIS PAP cytotechnolo gist: normal LMT, CT( CP) CT scree janelle locat ion: [address] [address] [place] [address] Not Available [address] [address] [place], [address], 04/04/2023 15:06:35 03/30/20 23 04/04/2023 THINP REP TIS PAP review cytotechnolo gist: normal LOONEY, CT( CP) CT Scree janelle locat ion: [address] [place] [address] Not Available [address] [place], [address], 04/04/2023 15:06:35 03/30/20 23 04/04/2023 THINP REP TIS PAP comment EXPLA NATOR Y NOTE: The Pap is a scree janelle test for cervi henry cance r. It is not a diagn ostic test and is subje ct to false negat sofia and false posit sofia resul ts. It is most relia ble when a satis facto ry sampl e, regul tejal obtai serafin, is submi tted with relev ant clini henry findi ngs and histo ry, and when the Pap resul t is evalu ated along with histo clarisa and curre nt clini henry infor matio n. Not Available [facility] [address], [place], [address], 04/04/2023 15:06:35 01/13/20 23 01/12/2023 US, obste tric No observ ation record ed. [facility] [address] [place], [address], 01/13/2023 09:49:00 01/20/2001/19/2023 US, obste tric, bioph ysica l profi le + non-s tress test No observ ation record ed. [email or web address] [address], [place], [address], 01/19/2023 13:58:07 Result Notes None recorded. Problems Name Problem SNOMED Code Status Onset Date Resolution Date Notes Provider Name and Address Organization Details Recorded Time Pregnanc y 25961591 Completed 202204/09/2023 Sandra Serna null, [facility] IV 3 10:12:10 Past pregnanc y history of section 403707882 Completed with G1 for placenta l abruptio n. Sandra Serna null, [facility] 3 10:12:03 Low lying placenta 848347007 Completed 11/17/2022 noted with MFM on 10/06/22. Resolved on 11/17/22. Sandra Serna null, [facility] 3 10:12:03 Language difficul ty 540601505 Completed Pt speaks Pakistani; doesn't speak Sao Tomean. Pt needs interpre ter services . Sandra Serna null, [facility] 3 10:12:03 Mass of left breast 23241430481 146829 Completed x 5 years, painful this pregnanc y Sandra Serna null, [facility] 3 10:12:03 High risk pregnanc y 36876089 Completed B+/RI/NR x4 & Last Pap: None on file; plan postpart um collecti on. GTT: Passed early 3 hr GTT. Failed 28 wk 1 hr; GTT 172, Failed 3 hr GTT at 28 wks. GBS: Aneuploi dy screenin g: [facility] NIPT & MSAFP WNL. Anatomy Scan: Complete with MFM on 10/06/22. Sandra stahl, [facility] 3 10:12:03 Gestatio nal diabetes mellitus 99630118 Completed HgA1C 6.0. Passed early 3 hr GTT. Failed 28 wk 1 hr; GTT 172, Failed 3 hr GTT at 28 wks. GDM ed visit done on 12/08/22. Serial growth U/S needed. 10/06 57%, 11/17 85%. --> Update 12/15/22: Pt had appt with MFM right before OBV at [facility]. U/S report not availabl e for review and discussi on with pt. Pt had difficul ty getting glucomet er from pharmacy ; only began testing/ diet/log s yesterda y. BG log reviewed . PP readings all WNL. Both fasting glucose readings > 100. GDM diet [facility] ed and discusse d F/U in 1 week to review her BG Log. If FBG continue to be elevated , plan to initiate medicati on. If starting medicati on, pt will need to begin twice weekly antenata l testing in office. Pt states understa nding of POC. Sandra stahl, [facility] 3 10:12:03 hydronep hrosis 679652844 Completed noted on 11/17/22. R kid 5.5 mm, L kid 4.1 mm. [facility] NIPT WNL. Male fetus. MFM recommen dation: F/U in 4 weeks to reassess kidneys/ repeat growth. --> Update 12/15/22: Pt saw MFM and had U/S prior to OBV appt with [facility] today. U/S report not availabl e for review. Further POC pending U/S findings /MFM recommen dation review. Sandra stahl, [facility] 3 10:12:03 Vaginal delivery followin g previous section 353778204 Completed with G2. Sandra Timmonsyanick stahl, [facility] 3 10:12:03 Past pregnanc y history of gestatio nal hyperten ilana 956656040 Completed with G1. Pt denies any complica tions during G2. Plan to start with LD ASA daily. Rx sent. Pt educated on PreE/HTN precauti ons and discusse d when to notify HCP/go to L&D. Plan to send baseline PreE labs at 33 wk appt. Sandra stahl, [facility] IV 3 10:12:03 Counseli madison for steriliz ation done [id number] 103 Completed 2022 signed @ 37w for pp procedur e Sandra stahl, [facility] 3 10:12:03 Problem Notes None recorded. Procedures Surgical History Date Name Laterality Status Provider Name and Address Organization Details Recorded Time 3 Date of Last Pap Smear completed Holli Tamayo MD [address] [place] [address], [phone], [facility] 04/06/2023 11:29:54 3 NST completed MARRY MOODY DO [address] [place] [address], [phone], [facility] 01/23/2023 11:33:06 3 NST completed Merlene Armstrong [place] [facility] 01/18/2023 17:06:04 3 NST completed Araceli Govea CNM [address] [place] [address], [phone], [facility] 01/21/2023 21:50:22 3 NST cancelled Mandi Robles [facility] 01/12/2023 14:19:01 3 NST completed Allyson Wilson [place] [facility] 01/09/2023 11:24:21 3 NST completed Araceli Govea CNM [address] [place] [address], [phone], [facility] 12/26/2022 10:32:54 section completed Mandi Robles [facility] 08/03/2022 10:46:48 Imaging Results Imaging Date Name Status LastModified by Organiz ation Details LastModified Time 01/12/2023 US, obstetric completed [facility] [address] [place], [address], 01/13/2023 09:49:00 01/19/2023 US, obstetric, biophysical profile + non-stress test completed [email or web address] [address], [place], [address], 01/19/2023 13:58:07 Procedure Notes None recorded. Medical Equipment None Reported. Allergies No known drug allergies Medications Name Sig Start Date Stop Date Status Note LastModified by Organization Details LastModified Time aspirin 81 mg tablet,marilynn yed release Take 1 tablet every day by oral route. 02/23 completed Not Available Not Available Not Available famotidine 20 mg tablet Take 1 tablet every day by oral route as needed. 02/23 completed Not Available Not Available Not Available amitriptyli ne 25 mg tablet TAKE ONE TABLET BY MOUTH EVERY DAY 08/03 completed Not Available Not Available Not Available OneTouch Ultra Test strips 02/23 completed Not Available Not Available Not Available docusate sodium 100 mg capsule TAKE 1 CAPSULE BY MOUTH TWICE DAILY 02/23 completed Not Available Not Available Not Available ibuprofen 600 mg tablet TAKE 1 TABLET BY MOUTH EVERY 6 HOURS NEEDED FOR PAIN 02/23 completed Not Available Not Available Not Available ondansetron 4 mg disintegrat ing tablet DISSOLVE 1 TABLET IN MOUTH EVERY 4 TO 6 HOURS NEEDED 02/23 completed Not Available Not Available Not Available Vitamins with Minerals 28 mg iron-800 mcg tablet Take 1 tablet every day by oral route. 02/23 completed Not Available Not Available Not Available FeroSul 325 mg (65 mg iron) tablet TAKE 1 TABLET BY MOUTH ONCE DAILY WITH BREAKFAST 03/30 completed Not Available Not Available Not Available Classic 28 mg iron-800 mcg tablet TAKE 1 TABLET BY MOUTH ONCE DAILY 03/30 completed Not Available Not Available Not Available OneTouch Ultra2 Meter 02/23 completed Not Available Not Available Not Available OneTouch Delica Plus Lancet 33 gauge 02/23 completed Not Available Not Available Not Available Se-Nikki-19 29 mg iron-1 mg tablet TAKE 1 TABLET BY MOUTH ONCE DAILY 02/23 completed Not Available Not Available Not Available Vitals Date Recorded Body height Body mass index (BMI) Body weight Body temperature Systolic blood pressure Diastolic blood pressure Provider Name and Address Organization Details Last Updated DateTime 157.48 cm 26.5 kg/m2 31229.8 9365 g 97 [degF] 102 mm[Hg] 70 mm[Hg] Allyson Wilson [place] [employer] [facility] 10:44:22 Date Recorded Body height Body mass index (BMI) Body weight Body temperature Systolic blood pressure Diastolic blood pressure Provider Name and Address Organization Details Last Updated DateTime 157.48 cm 27 kg/m2 67507.5 27828 g 96.6 [degF] 112 mm[Hg] 60 mm[Hg] Merlene Armstrong [place] [employer] [place] 10:45:28 Date Recorded Body height Body mass index (BMI) Body temperature Systolic blood pressure Diastolic blood pressure Provider Name and Address Organization Details Last Updated DateTime 01/23/2023 157.48 cm 27.3 kg/m2 96.5 [degF] 112 mm[Hg] 64 mm[Hg] Mandi Robles [place] [employer] [place] 11:06:33 Date Recorded Body weight Provider Name an d Address Organization Details Last Updated DateTime 01/23/2023 29817.33680 g MARRY MOODY , DO [address] [facility], [place], [address], [facility] 01/23/2023 10:47:07 Date Recorded Body height Body temperature Body mass index (BMI) Body weight Systolic blood pressure Diastolic blood pressure Provider Name and Address Organization Details Last Updated DateTime 157.48 cm 98 [degF] 24.2 kg/m2 95270.6 76932 g 118 mm[Hg] 62 mm[Hg] Allyson Wilson [place] [employer] [facility] 3 10:12:51 Date Recorded Body height Body mass index (BMI) Body weight Body temperature Systolic blood pressure Diastolic blood pressure Provider Name and Address Organization Details Last Updated DateTime 3 157.48 cm 24.7 kg/m2 01650.2 32769 g 97.4 [degF] 110 mm[Hg] 74 mm[Hg] Sandra Serna [facility] 3 16:06:43 Social History Question Answer Notes LastModified by Organizat ion Details LastModified Time Tobacco Smoking Status Never Smoker Mandi Robles null, [place] [employer] [place] 08/03/2022 10:46:30 What Is Your Level Of Alcohol Consumption? Occasional Information not available 08/03/2022 If You Are , What Was Your Level Of Alcohol Consumption Prior To ? None Information not available 08/03/2022 Are You Blind Or Do You Have Difficulty Seeing? No Information not available 08/03/2022 Are You Deaf Or Do You Have Serious Difficulty Hearing? No Information not available 08/03/2022 What Type Of Diet Are You Following? REGULAR Information not available 08/03/2022 How Many Children Do You Have? 3 [email or web address] Information not available 02/23/2023 What Is Your Relationship Status? Information not available 08/03/2022 Are You Sexually Active? Yes Information not available 08/03/2022 Do You Use Any Illicit Or Recreational Drugs? No Information not available 08/03/2022 Do You Or Have You Ever Used Any Other Forms Of Tobacco Or Nicotine? No Information not available 08/03/2022 Sex: Unknown Functional Status Question Answer Note LastModified by Organization D etails LastModified Time What is your exercise level? None Information not available 08/03/2022 Mental Status None recorded. Family History Relationship Description Onset Age of this Age Resolved Age Notes LastModified by Organization Details LastModified Time Father No current problems or disability [email or web address] Not available 08/03 10:45:11 Mother No current problems or disability [email or web address] Not available 08/03 10:45:11 Medical History Condition Response Other Cancer N High Blood Pressure N Colon Cancer N Cytomegalovirus N Hyperthyroidism N MRSA N Blood Transfusion N Herpes (HSV) N Breast Cancer N Lung Cancer N Depression N Hypothyroidism N Incontinence N Panic Attacks N Neurological Disorder N Deep Vein Thrombosis N Anxiety Disorder N Autoimmune disease N Arthritis N Shingles N Tuberculosis/Positive PPD N Polycystic Ovarian Syndrome N Cervical Cancer N Hematuria N Chlamydia N Varicosities N Stroke N Seasonal allergies N Crohn's Disease N Alzheimer's/Dementia N COPD/Emphysema N Endometriosis N HPV/Genital Warts N IBS (Irritable Bowel Syndrome) N History of Abnormal Pap N High Cholesterol N Liver Disease N Fibromyalgia N Kidney Infection N Ulcer N Kidney Disease N HIV N Gallbladder disease N Sickle Cell Disease/Trait N Von Willebrand disease N ADD/ADHD N Eating Disorder N Anemia N Diabetes Mellitus (non-insulin dependent ) N Ovarian Problems N Multiple Sclerosis N Gonorrhea N Frequent Urinary Tract infections N Osteopenia N Headaches/migraines N GERD (reflux) N Ovarian Cancer N Diabetes (insulin dependent) N Seizures/Epilepsy N Fibroids N Heart Attack N Asthma N Lupus N Endometrial Cancer N Rubella N Blood Clotting Disorder N Bipolar Disorder N Diabetes Mellitus (during ) N Ulcerative Colitis N Hepatitis N Heart Disease N Pulmonary Embolism N RPR N Chicken Pox N Osteoporosis N Gynecological History Statement/Question Response Flow Light Date of last HPV 03/30/2023 Date of LMP 05/09/2022 HPV Vaccine N Duration of Flow (days) 28 Most Recent Mammogram Current Control Method None Age at Menarche 13 Date of Last Colonoscopy Most Recent Bone Density Frequency of Cycle (Q days) 5 Date of Last Pap Smear 03/30/2023 Obstetrics History GPAL:G 3 P 2 1 0 3 Type Value Full Term 2 Premature 1 Living 3 Total 3 Past Encounters Encounter ID Performer Location Encounter Start Date Encounter Closed Date Diagnosis/Indication Diagnosis SNOMED-CT Code Diagnosis ICD10 Code Diagnosis Note [id number] Adalgisa Diana CNM [facility] [address] [place] [address] 08/03/2022 10:34:05 08/03/2022 11:37:13 detection examination 55959502 Z32.00 Depression screening 171 734832 Z13.31 test positive 405413565 Z32.01 NOB education including SAB precaution s given via vice president network development . Pt expressed understand ing through vice president network development .Approxima tely thirty minutes spent with patient in consultati on (>50% face-to-fa ce). Patient and medical history were reviewed via [employer] president network [employer] . Pt only speaks Pakistani. Patient questions were answered. Additional patient care was coordinate d. Pt and expressed understand ing via [employer] president [employer] . F/u in 4 weeks screening 2437 [address] Z36.0 Carrier de tection, molecular genetics 1063022 Z14.8 Mild hyper emesis gravidarum 57628029 O21.0 [id number] Adalgisa Diana CNM [address] [address] 08/31/2022 10:48:15 09/01/2022 13:30:32 Normal in multigravida 8565709226 13892 Z34.82 Gestation period, 16 weeks [id number] Z3A.16 Advised pt to f/u immediatel y if temp>101.; abdominal pain, vaginal bleeding greater than 1 pad/hr for greater than 2 hours; vaginal bleeding with or without cramping; bleeding w/clots; cramping like a period. Glucose to lerance test during - baby not yet delivered outside reference range 121262513 O99.810 screening for malformation 940139357 Z36.3 Mild hyper emesis gravidarum 99909049 O21.0 [id number] Adalgisa Diana CNM [address] [address] 10/04/2022 10:56:34 10/04/2022 22:29:15 Normal in multigravida [id number] 81836 Z34.82 Gestation period, 21 weeks 93793562 Z3A.21 Advised pt to f/u immediatel y if temp>101.; abdominal pain, vaginal bleeding greater than 1 pad/hr for greater than 2 hours; vaginal bleeding with or without cramping; bleeding w/clots; cramping like a period. Mass of left breast 1224 118294 5931792 N63.20 nodule in upper outer quadrant left breast. Mild tenderness . [id number] DEYANIRA MERCADO MD [address] [address] 11/03/2022 10:56:16 11/03/2022 17:44:14 Normal in multigravida 8228155249 15262 Z34.82 Mass of left breast 1224 206167 8399438 N63.20 irregular mildly tender nodule ~ 1 x 1 cm in upper outer quadrant left breast @ about 3 0' clock location in the areola next to the nipple. Mild tenderness . Routine an tenatal care 019160064 Z34.82 Gestation period, 25 weeks 83207432 Z3A.25 Low lying placenta 51403 2006 O44.42 Has f/u scheduled with [facility] for u/s Language difficulty 1611 94941 Z60.8 [id number] MEHRDAD MONTENEGRO [facility] [address] [place] [address] 11/17/2022 13:40:14 11/18/2022 10:41:11 Routine care 782106127 Z34.92 Gestation period, 27 weeks 37651251 Z3A.27 [id number] [facility] [address] [place] [address] 12/01/2022 11:09:20 12/01/2022 16:05:21 Gestation period, 29 weeks 79329872 Z3A.29 Routine an tenatal care 291088247 Z34.93 [id number] CHYNA MCKEON, [facility] [address] [place] [address] 12/08/2022 09:59:01 12/08/2022 14:16:48 Diabetes mellitus screening 630856050 Z13.1 Gestationa l diabetes mellitus complicating 6165565546 9106 O24.419 *GDM education completed. Discussed diet- rec. max. carbs/day, starchy vs non-starch y carbs. Good vs bad foods. Carb counting and the plate method explained. Discussed exercise. Reviewed QID BS checks and normal values. Instructed to not skip meals and eat snacks in btwn meals. BS log explained. Reviewed risk in with GDM, including LGA baby, preeclamps ia, GHTN, polyhydram nios, and stillbirth . risks include but are not limited to hypoglycem ia, hyperbilir ubinemia, hypocalcem ia, and respirator y distress*G DM teaching handouts and blood sugar logs given.*Diana ck ADA website for further info Gestation period, 30 weeks 04066605 Z3A.30 Pt is here for a GALE dougherty. She is taking vitamins. She has no complaints or questions. Denies vaginal bleeding, abdominal cramps, N/V, contractio ns, and LOF. Denies headache, vision changes, swelling of hands or face, and epigastric pain. Reports feeling movement. Discussed Movement Counts. GDM teaching today. Blood glucose supplies ordered and handouts given.Do camacho has repeat anatomy and growth with MFM on BS:@ 36 weeks Discussed PTL and precaution s given. There are no identifiab le risk factors for pre-term labor. Discussed with pt that I do not delivery babies. Recommende d pt see a Delivery provider next visit. [id number] KEMI Chawla [facility] [address] [place] [address] 12/15/2022 09:49:31 12/15/2022 16:45:12 High risk 75985558 O09.93 Pt encounter was conducted with Tammy Wilson MA as vice president network development . 1. IUP FWB reassuring by + FHT noted on BSUS. Aneuploidy screening: UNITY NIPT & MSAFP WNL. Anatomy Scan: Complete with MFM on 10/06/22.2. B+/RI/NRx4 & Last Pap: None on file; plan collection . GTT: Passed early 3 hr GTT. Failed 28 wk 1 hr; GTT 172, Failed 3 hr GTT at 28 wks. GBS:3. GDM - HgA1C 6.0. Passed early 3 hr GTT. Failed 28 wk 1 hr; GTT 172, Failed 3 hr GTT at 28 wks. GDM ed visit done on 12/08/22. Serial growth U/S needed. 10/06 57%, 11/17 85%. --> Update 12/15/22: Pt had appt with MFM right before OBV at [facility]. U/S report not available for review and discussion with pt. Pt had difficulty getting glucometer from pharmacy; only began testing/di et/logs yesterday. BG log reviewed. PP readings all WNL. Both fasting glucose readings > 100. GDM diet reinforced and discussed F/U in 1 week to review her BG Log. If FBG continue to be elevated, plan to initiate medication . If starting medication , pt will need to begin twice weekly testing in office. Pt states understand ing of POC.4. LLP - noted with MFM on 10/06/22. Resolved on 11/17/22.5. Bilat Hydronephr osis - noted on 11/17/22. R kid 5.5 mm, L kid 4.1 mm. UNITY NIPT WNL. Male fetus. [facility] recommenda tion: F/U in 4 weeks to reassess kidneys/re peat growth. --> Update 12/15/22: Pt saw MFM and had U/S prior to OBV appt with [facility] today. U/S report not available for review. Further POC pending U/S findings/M FM recommenda tion review.6. Prior C/S - with G1 for placental abruption. 7. H/O - with G2.8. H/O GHTN - with G1. Pt denies any complicati ons during G2. Plan to start with LD ASA daily. Rx sent. Pt educated on PreE/HTN precaution s and discussed when to notify HCP/go to L&D. Plan to send baseline PreE labs at 33 wk appt.9. Language Barrier - Pt speaks Pakistani; doesn't speak Sao [place]omean. Interpreto r services needed during visit.10. Delivery Plans:11. PP Contracept ion Plans: Follow up in 1 week. Gestationa l diabetes mellitus 88599440 O24.419 hydronephrosis 430 033774 O36.8999 History of poor outcome 7067501334 57589 Z87.59 Past pregn karmen history of gestational hypertension 039091104 Z87.59 Vaginal de livery following previous section 081389152 O34.546 [id number] Araceli Govea CNM [facility] [address] [place] [address] 12/26/2022 09:26:21 12/26/2022 16:28:39 High risk 14882152 O09.893 Gestationa l diabetes mellitus 35592811 O24.419 hydronephrosis 430 018392 O36.8999 History of poor outcome 0002951593 65611 Z87.59 Past pregn karmen history of gestational hypertension 669970011 Z87.59 Vaginal de livery following previous section 287559386 O34.219 Gestation period, 33 weeks 43092730 Z3A.33 [id number] Letty Kendal weller, [facility] [address] [place] [address] 01/09/2023 10:18:42 01/17/2023 12:44:46 Gestation period, 34 weeks 66594406 Z3A.34 Gestationa l diabetes mellitus 59032862 O24.508 [id number] Araceli Govea, [facility] [address] [place] [address] 01/16/2023 10:02:36 01/16/2023 17:41:26 Gestational diabetes mellitus 87864273 O24.410 High risk 4720 0007 O09.893 Gestation period, 36 weeks 27505690 Z3A.36 [id number] Gertrude Harrell, [facility] [address] [place] [address] 01/19/2023 10:11:16 01/19/2023 15:21:44 Gestation period, 36 weeks 98218183 Z3A.36 [id number] MARRY MOODY, [facility] [address] [place] [address] 01/23/2023 10:01:57 01/23/2023 15:54:08 Gestation period, 37 weeks 32277558 Z3A.37 Gestationa l diabetes mellitus 39908109 O24.410 reactive NSTplan for RLTCS for suspected Macrosomia at 39 weeks with efw of 5200g based off of as efw: 3440g (>97%ile) on 01/12/23. High risk 4720 0007 O09.93 [id number] Holli Tamayo MD [facility] [address] [place] [address] 02/23/2023 09:56:29 02/23/2023 13:39:00 Postoperative visit 764099845 Z09 Reviewed Surgical findings. Patient instructed to maintain strict pelvic rest and no heavy lifting greater than 20 lbs. She was instructed to return for a visit in 4 weeks. All of her questions were answered. Patient desires sterilizat ion. We discussed options for procedure including cauterizat ion, ligation with band or clip, partial salpingect eula and total salpingect eula. After a review of the risks and benefits, patient desires the least chance of failure. She understand s that this procedure is permanent and can never be reversed. Should she desire in the future, IVF would be required. Patient would like to proceed with LSC Bilateral Salpingect eula for sterilizat ion purposes. We reviewed the risks of the procedure including but not limted to bleeding, infection, injury, and She has elected to proceed. Depression screening 171 714577 Z13.31 [id number] Holli Tamayo MD [facility] [address] [place] [address] 03/30/2023 16:01:40 03/30/2023 16:49:48 state 51239008 Z39.2 Maternal p ostpartum depression screening 6267109066 00899 Z13.32 Screening for malignant neoplasm of cervix 409711161 Z12.4 Health Concerns Section Related Observation LastModified by Organization Detai ls LastModified Time None Recorded Concern Status LastModified by Organization Details LastModified Time None Recorded Advance Directives Directive None Recorded Payers Encounter Date Sequence Insurance Name Policy Number Policy Pope Covered Member ID Pope Member ID Guarantor Name 01/16/2023 1 [facility] (MEDICAID HMO) [id number] Og Davis [id number] Og Allan 01/19/2023 1 [facility] (MEDICAID HMO) [id number] Og Davis [id number] Itzamar Jerrell 01/23/2023 1 [facility] (MEDICAID HMO) [id number] Og Davis [id number] Itdesiree Allan 02/23/2023 1 [facility] (MEDICAID HMO) [id number] 0003 Og Davis [id number] Itdesiree Allan 03/30/2023 1 [facility] (MEDICAID HMO) [id number] 0003 Dinorahjeremie Allan Ryan [id number] Og Allan Notes Date Note Type Note Provider Name and Address Organization Details Recorded Time 01/16/2023 text/html OB ProblemReport ed bypatient.Associated Symptoms:no abdominal pain; no cramping; no contractions; normal movement; no bleeding; no ROM; no vaginal discharge; no vaginal/vulvar itching or irritation; no edema; no visual changes; no headache; no dizziness; no breathlessness last US done at [facility] 01/12/2023 Araceli Govea, [facility] [address] [place], [address], [facility] [employer] 01/21/2023 21:56:54 01/19/2023 text/html Pt here for GALE in third trimester 36.3weeks. +FM, denies VB, LOF. Denies ENRIQUEZ, vision changes, RUQ pain, contractions Gertrude Harrell, [facility] [address] [place], [address], [facility] [employer] [facility] 01/19/2023 12:55:00 01/23/2023 text/html Itzamar here for AGLE in third trimester 37.0 weeks. +FM, denies VB, LOF. Denies ENRIQUEZ, vision changes, RUQ pain, contractions MARRY MOODY, [address] [place], [address], [facility] [employer] [facility] 01/23/2023 14:16:44 02/23/2023 text/html Post-OpReported bypatient.Onset/Timin g:date of surgery: (01/29/23) Quality:procedure: () Associated Symptoms:incision healing well; no fatigue; normal appetite; normal bowel function; no constipation; no nausea; no emesis; pain improving; no pain; no fever; no bleeding; no lower extremity edema/pain; no dysuria/urinary symptomsNotes:Desires sterilization. Reports decrease in bleeding. Breast/Bottlefeeding. No issues. Og 27 y/o presents for 2 weeks post op, Pt C/o of white spot around her neck, Pain in the upper bilateral abdominal pain. Holli Tamayo MD [facility] [place], [address], [facility] [employer] 02/23/2023 10:46:17 03/30/2023 text/html VisitReported bypatient.Onset/Timin g:date of delivery: (01/29/2023) Quality:repeat C/S Associated Symptoms:no abnormal bleeding; no vaginal discharge; no pelvic pain; laceration well healed; no constipation; no fecal incontinence; no dysuria; no urinary incontinence; no fever; no problems; no mastitis; normal moodNotes:Cancelled BTL itzamar c/o some abdominal pain that comes and goes. Holli Tamayo MD [facility] [place], [address], [facility] [employer] 03/30/2023 16:27:38 OBGyn Episode Ob Episode Information Episode Created Date Number of Fetuses Patient Bloodtype Patient rh Status Prepregnancy Weight lbs Domestic Partner Domestic Partner Phone Father Name Promotions Executive Status 08/09/19 1 B Positive CLOSED Fetus Data First Name Last Name Admitted to NICU Weight (g) Sex Living Outcome Pediatric Complications Fetus ID Race Codes Race Delivery Type false 4167.37 65 M true Full Term [id number] 6825-3 White Repeat Problems Problem Notes Problem Name Start Date End Date Resolution Snomed Code Note Low lying placenta 11/18/19 SELFRESOLVED [id number] noted with MFM on 10/06/22. Resolved on 11/17/22. Past history of gestational hypertension 205815403 with G1. Pt den ies any complications during G2. Plan to start with LD ASA daily. Rx sent. Pt educated on PreE/HTN precautions and discussed when to notify HCP/go to L&D. Plan to send baseline PreE labs at 33 wk appt. High risk 45422747 B+/RI/NRx4 & Last Pap: None on file; plan collection. GTT: Passed early 3 hr GTT. Failed 28 wk 1 hr; GTT 172, Failed 3 hr GTT at 28 wks. GBS: Aneuploidy screening: UNITY NIPT & MSAFP WNL. Anatomy Scan: Complete with MFM on 10/06/22. Language difficulty [id number] Pt speaks Pakistani; doesn't speak Sao Tomean. Pt needs staff auditor services. Mass of left breast [id number] x 5 years, painful this hydronephrosis 509720101 noted on . R kid 5.5 mm, L kid 4.1 mm. UNITY NIPT WNL. Male fetus. MFM recommendation: F/U in 4 weeks to reassess kidneys/repeat growth. --> Update 12/15/22: Pt saw MFM and had U/S prior to OBV appt with [facility] today. U/S report not available for review. Further POC pending U/S findings/MFM recommendation review. Past history of section 742388403 with G1 for placental abruption. Vaginal delivery following previous section 648799842 with G2. Counseling for sterilization done 3 [id number] signed @ 37w for pp procedure Gestational diabetes mellitus 82299771 HgA1C 6.0. Passed early 3 hr GTT. Failed 28 wk 1 hr; GTT 172, Failed 3 hr GTT at 28 wks. GDM ed visit done on 12/08/22. Serial growth U/S needed. 10/06 57%, 11/17 85%. --> Update 12/15/22: Pt had appt with [facility] right before OBV at [facility]. U/S report not available for review and discussion with pt. Pt had difficulty getting glucometer from pharmacy; only began testing/diet/logs yesterday. BG log reviewed. PP readings all WNL. Both fasting glucose readings > 100. GDM diet reinforced and discussed F/U in 1 week to review her BG Log. If FBG continue to be elevated, plan to initiate medication. If starting medication, pt will need to begin twice weekly testing in office. Pt states understanding of POC. Tung Calculation Initial Tung Date Initial Exam Date Initial Exam Provider Initial Ultrasound Date Last Menstrual Period Date Ultra Sound Weeks Gestation 02/13/2023 08/08/2022 08/03/2022 05/09/2022 12 Eighteen To Twenty Week Tung Update Ultra Sound Date Fundal Height At Umbil Quickening Date Ultra Sound Latest Weeks Gestation Final Tung Confirmed By Final Tung Confirmed Date Final Tung Date Ultra Sound Latest Days Gestation 0 [email or web address] 08/08/2022 02/14/20 23 0 Pre- Flowsheet Flowsheet Date 08/31/2022 Cummins Score Blood Edema Fundus Height Fundus Units Glucose Ketones Leukocytes Nitrite Labor Signs Protein Cervic Dilation Cervic Effacement Cervic Station none none none trace Type Weight in lbs Pre/Post Dialysis Refused With clothes 128.813468795876 BP Diastolic BP Location Tested BP Systolic BP Type 64 118 sitting Fetus Heart Rate Present A 146 Fetus Movement Comments No OB concerns. Will try to get OP report from [facility]. F/u 4 wks. [facility] for anatomy. Flowsheet Date 10/04/2022 Cummins Score Blood Edema Fundus Height Fundus Units Glucose Ketones Leukocytes Nitrite Labor Signs Protein Cervic Dilation Cervic Effacement Cervic Station none none Type Weight in lbs Pre/Post Dialysis Refused With clothes 136.838522597042 BP Diastolic BP Location Tested BP Systolic BP Type 60 110 sitting Fetus Heart Rate Present A 153 Fetus Movement A Yes Comments nodule in upper outer quadra nt left breast. Mild tenderness. Breast US to [facility]. [facility] appointment next week for anatomy. Flowsheet Date 11/03/2022 Cummins Score Blood Edema Fundus Height Fundus Units Glucose Ketones Leukocytes Nitrite Labor Signs Protein Cervic Dilation Cervic Effacement Cervic Station 24 wks 4+ none 2+ Type Weight in lbs Pre/Post Dialysis Refused With clothes 142.739820923565 BP Diastolic BP Location Tested BP Systolic BP Type 72 L arm 100 sitting Fetus Heart Rate Present A 156 Present Fetus Movement A Yes Comments Tawnya survey complete, 51%ile , normal CL, LL placenta. Left breast lump- US ordered. Flowsheet Date 11/17/2022 Cummins Score Blood Edema Fundus Height Fundus Units Glucose Ketones Leukocytes Nitrite Labor Signs Protein Cervic Dilation Cervic Effacement Cervic Station 28 cm 4+ none trace Type Weight in lbs Pre/Post Dialysis Refused With clothes 141.333764617409 BP Diastolic BP Location Tested BP Systolic BP Type 62 L arm 110 sitting Fetus Heart Rate Present A 155 Present Fetus Movement A Yes Comments TDAP education and order giv en. Pt reports US today with [facility]- report not finalized. 1 hour gct done today. No OB complaints. Pt brought in records from [facility], prior report, will need translated. Flowsheet Date 12/01/2022 Cummins Score Blood Edema Fundus Height Fundus Units Glucose Ketones Leukocytes Nitrite Labor Signs Protein Cervic Dilation Cervic Effacement Cervic Station none 30 none none neg Type Weight in lbs Pre/Post Dialysis Refused Weight 143.176283056286 BP Diastolic BP Location Tested BP Systolic BP Type 68 102 Fetus Heart Rate Present A 144 Fetus Movement A Yes Comments Victoria-MA used for translatio n. Had breast US this AM, will notify when results received. Delivery record from [facility] reviewed. SROM at 38 weeks with completed. Doing 3 hour glucola today. Pepcid for heartburn and lifestyle changes reviewed. Flowsheet Date 12/08/2022 Cummins Score Blood Edema Fundus Height Fundus Units Glucose Ketones Leukocytes Nitrite Labor Signs Protein Cervic Dilation Cervic Effacement Cervic Station none 30 cm 4+ Uterine Contract ions neg Type Weight in lbs Pre/Post Dialysis Refused With clothes 145.843703994269 BP Diastolic BP Location Tested BP Systolic BP Type 60 L arm 100 sitting Fetus Heart Rate Present A 148 Present Fetus Movement A Yes Comments Victoria- [place] used for translati on. Patient report irregular contractions, less than 4/per and can go several hours between. GDM teaching today. Teaching on how to check glucose. Blood glucose supplies sent to pharmacy. Patient has apt with [facility] on 12/15 for repeat anatomy and growth. Blood glucose teaching and logs given to patient. RTC in 2 weeks. Flowsheet Date 12/15/2022 Cummins Score Blood Edema Fundus Height Fundus Units Glucose Ketones Leukocytes Nitrite Labor Signs Protein Cervic Dilation Cervic Effacement Cervic Station none none Other (see comments ) neg Type Weight in lbs Pre/Post Dialysis Refused With clothes 144.882405756180 BP Diastolic BP Location Tested BP Systolic BP Type 66 L arm 100 sitting Fetus Heart Rate Present A 146 Fetus Movement A Yes Comments See Visit Plan. Flowsheet Date 12/26/2022 Cummins Score Blood Edema Fundus Height Fundus Units Glucose Ketones Leukocytes Nitrite Labor Signs Protein Cervic Dilation Cervic Effacement Cervic Station none none trace Type Weight in lbs Pre/Post Dialysis Refused With clothes 142.028482460141 BP Diastolic BP Location Tested BP Systolic BP Type 70 112 sitting Fetus Heart Rate Present A 135 Fetus Movement A Yes Comments NST reactive. Last growth at [facility] at 94%. Recommended Repeat section. Fasting sugars 5 of 13 elevated greater than 95. 1 hour pp wnl with only 4 of 35 greater than 130. Stressed importance of bedtime snack and examples given. Baseline cbc, cmp, and pc ratio today. Return Sunday for NST and NENA. Flowsheet Date 01/09/2023 Cummins Score Blood Edema Fundus Height Fundus Units Glucose Ketones Leukocytes Nitrite Labor Signs Protein Cervic Dilation Cervic Effacement Cervic Station 1+ neg 1cm 20% -4 Type Weight in lbs Pre/Post Dialysis Refused With clothes 143.373494845987 BP Diastolic BP Location Tested BP Systolic BP Type 60 L arm 110 sitting Fetus Heart Rate Present Fetus Movement Comments Flowsheet Date 01/16/2023 Cummins Score Blood Edema Fundus Height Fundus Units Glucose Ketones Leukocytes Nitrite Labor Signs Protein Cervic Dilation Cervic Effacement Cervic Station 35 none none neg Type Weight in lbs Pre/Post Dialysis Refused With clothes 145.6475818292 BP Diastolic BP Location Tested BP Systolic BP Type 70 L arm 102 sitting Fetus Heart Rate Present A 140 Fetus Movement A Yes Comments GBS collected. Fasting sugar s 94, 92, 91. 2hr with high 130. Reinforced diet. Diet reinforced. PTL/PIH precautions reviewed. Flowsheet Date 01/19/2023 Cummins Score Blood Edema Fundus Height Fundus Units Glucose Ketones Leukocytes Nitrite Labor Signs Protein Cervic Dilation Cervic Effacement Cervic Station none 34 none none neg Type Weight in lbs Pre/Post Dialysis Refused With clothes 147.870635692926 BP Diastolic BP Location Tested BP Systolic BP Type 60 112 sitting Fetus Heart Rate Present A 143 Fetus Movement A Yes Comments GBS collected, no results fo und. NST reactive. Labor precautions reviewed. Victoria used for translation. Flowsheet Date 01/23/2023 Cummins Score Blood Edema Fundus Height Fundus Units Glucose Ketones Leukocytes Nitrite Labor Signs Protein Cervic Dilation Cervic Effacement Cervic Station none Cramping neg Type Weight in lbs Pre/Post Dialysis Refused With clothes 149.357456702719 BP Diastolic BP Location Tested BP Systolic BP Type 64 112 sitting Fetus Heart Rate Present A 145 Fetus Movement Comments reactive NST. discussed susp ected macrosomia at 39 weeks as efw on 01/12 was 3440g. Due to this recommended RLTCS. Discussed r/b of vs . pt understood and agreed to RLTCS. pt forgot BG logs. has appt on 01/26 for nst and nena. desires tubal at , but is medicaid and hasn't signed medicaid paperwork. will sign today if pt would like it completed . Flowsheet Date 02/23/2023 Cummins Score Blood Edema Fundus Height Fundus Units Glucose Ketones Leukocytes Nitrite Labor Signs Protein Cervic Dilation Cervic Effacement Cervic Station Type Weight in lbs Pre/Post Dialysis Refused With clothes 132.131987669206 BP Diastolic BP Location Tested BP Systolic BP Type 62 L arm 118 sitting Fetus Heart Rate Present Fetus Movement Comments Flowsheet Date 03/30/2023 Cummins Score Blood Edema Fundus Height Fundus Units Glucose Ketones Leukocytes Nitrite Labor Signs Protein Cervic Dilation Cervic Effacement Cervic Station Type Weight in lbs Pre/Post Dialysis Refused Weight 134.465925559634 BP Diastolic BP Location Tested BP Systolic BP Type 74 110 Fetus Heart Rate Present Fetus Movement Comments Menstrual History Last Menstrual Date Menses Monthly On Bcp Conception Prior Menses Frequency Hcg Plus Date Menarche Onset Age 1205/09/2022 Genetic Screening And Infection History Question Response Note Recent Travel History Outside of Country false Cystic Fibrosis false Any Other Genetic History false Geovanna Disease false Other Infection History false Thalassemia (Maori, Sierra Leonean, Mediterranean, Or Background): MCV < 80 false Patient Or Baby's Father Had A Child With Defects Not Listed Above false Live With Someone With TB Or Exposed To TB false Patient's Age Will Be 35 Years Or Older At Estim ated Date of Delivery false Recurrent Loss, Or A Stillbirth false Hemoglobinopathy Or Carrier false Patient Or Partner Has History Of Genital Herpes false Intellectual Disability/Autism false Maternal Metabolic Disorder (eg, Type 1 Diabetes , PKU) false History of Hepatitis false Nikolai-Sachs (eg, Congregation, Cajun, Divehi-Wilbarger) f alse History Of STD, Gonorrhea, Chlamydia, HPV, Syphi lis false Prior GBS-infected child false History of HIV false Personal or Family History o f Neural Tube Defect (Meningomyelocele, Spina Bifida, Or Anencephaly) false Hemophilia Or Other Blood Disorders false Mental Retardation/Autism false [place]'s Chorea false If Yes, Was Person Tested For Fragile X? false Other Inherited Genetic Or Chromosomal Disorder false If Yes, Agent(s) And Strength/Dosage false Sickle Cell Disease Or Trait () false Personal or Family History of Congenital Heart D efect false Rash Or Viral Illness Since Last Menstrual Perio d false Muscular Dystrophy false Medications (including Suppl ements, Vitamins, Herbs, OTC Drugs), Illicit/Recreational Drugs, Alcohol false Other Structural Defect false Down Syndrome false Delivery Information Delivery Date Delivery Type Labor Anesthesia Weeks Gestation Incision Type Labor Labor Length Hrs Delivered By Post Complications Tubal Sterilization Discharge Date Comments 3 [facility] 37.6 Low Transvers e false Holli Tamayo MD Hypertension false 01/31/2023 anemia Discharge Information Feeding Method Contraceptive Method Maternal HG B and HCT Levels Combination Ob Episode Information Episode Created Date Number of Fetuses Patient Bloodtype Patient rh Status Prepregnancy Weight lbs Domestic Partner Domestic Partner Phone Father Name Promotions Executive Status 08/04/19 1 CLOSED Fetus Data First Name Last Name Admitted to NICU Weight (g) Sex Living Outcome Pediatric Complications Fetus ID Race Codes Race Delivery Type M Full Term [id number] Tung Calculation Initial Tung Date Initial Exam Date Initial Exam Provider Initial Ultrasound Date Last Menstrual Period Date Ultra Sound Weeks Gestation 0 Eighteen To Twenty Week Tung Update Ultra Sound Date Fundal Height At Umbil Quickening Date Ultra Sound Latest Weeks Gestation Final Tung Confirmed By Final Tung Confirmed Date Final Tung Date Ultra Sound Latest Days Gestation 0 0 Menstrual History Last Menstrual Date Menses Monthly On Bcp Conception Prior Menses Frequency Hcg Plus Date Menarche Onset Age Delivery Information Delivery Date Delivery Type Labor Anesthesia Weeks Gestation Incision Type Labor Labor Length Hrs Delivered By Post Complications Tubal Sterilization Discharge Date Comments 0 38 false Discharge Information Feeding Method Contraceptive Method Maternal HG B and HCT Levels Ob Episode Information Episode Created Date Number of Fetuses Patient Bloodtype Patient rh Status Prepregnancy Weight lbs Domestic Partner Domestic Partner Phone Father Name Promotions Executive Status 08/04/19 1 CLOSED Fetus Data First Name Last Name Admitted to NICU Weight (g) Sex Living Outcome Pediatric Complications Fetus ID Race Codes Race Delivery Type 2721.55 2 M Prematur e Primary Tung Calculation Initial Tung Date Initial Exam Date Initial Exam Provider Initial Ultrasound Date Last Menstrual Period Date Ultra Sound Weeks Gestation 0 Eighteen To Twenty Week Tung Update Ultra Sound Date Fundal Height At Umbil Quickening Date Ultra Sound Latest Weeks Gestation Final Tung Confirmed By Final Tung Confirmed Date Final Tung Date Ultra Sound Latest Days Gestation 0 0 Menstrual History Last Menstrual Date Menses Monthly On Bcp Conception Prior Menses Frequency Hcg Plus Date Menarche Onset Age Delivery Information Delivery Date Delivery Type Labor Anesthesia Weeks Gestation Incision Type Labor Labor Length Hrs Delivered By Post Complications Tubal Sterilization Discharge Date Comments 7 36 true Primary C/S for placental abruption . high rest bed rest since 5 months till 7 monthslow pressure or high blood pressurea nd GDMinject ion for the baby to develop lungs Discharge Information Feeding Method Contraceptive Method Maternal HG B and HCT Levels
--- OUTSIDE RECORDS SUMMARY | 2024-07-02 11:44 | XMS_ITS | Patient Health Summary ---
Author Organization [facility] Address [address] [place] [address] Care Team Providers Care Oyster Buyer Name Role Phone Unavailable Primary Care Provider Unavailabl e Note from [facility],non-owned Affiliates and Associated Physician Practices is amultiple site organization consisting of ambulatory clinics and hospital sitesin [place], [place]. This disclosure is being madepursuant to the Care Everywhere program and may not contain all information available regarding this patient. Last updated 18.[facility] Allergies No known active allergies Medications * Be aware that medications may not be up to date on this document. Alwaysverify current medications with the patient. * albuterol HFA (Proventil; Ventolin; Proair) 108 (90 Base) MCG/ACT inhaler (Started 07/09/2023) Inhale 2 (two) puffs by mouth every 4 hours as needed * metFORMIN (Glucophage) 500 MG tablet(Started 11/28/2023) * naproxen (Naprosyn) 500 MG tablet(Started 09/29/2023) Take 1 (one) tablet by mouth 2 times daily as needed * propranolol (Inderal) 60 MG tablet Take 1 (one) tablet by mouth 2 times daily as needed (h/a) * DULoxetine (Cymbalta) 20 MG capsule(Started 02/04/2024) Take 1 (one) capsule by mouth at bedtime Reasons: Fibromyalgia Syndrome Active Problems No known active problems Social History Tobacco Use Types Packs/Day Years Used Date Smoking Tobacco: Never Assessed Sex and Gender Information Value Date Recorded Sex Assigned at Not on file Gender Identity Not on file Sexual Orientation Not on file Last Filed Vital Signs Vital Sign Reading Time Taken Comments Blood Pressure 102/70 12/04/2023 7:56 AM CDT Pulse 79 12/04/2023 7:56 AM CDT Temperature 36.7 C (98 F) 12/04/2023 7:56 AM CDT Respiratory Rate 16 12/04/2023 7:56 AM CDT Oxygen Saturation 99% 12/04/2023 7:56 AM CDT Inhaled Oxygen Concentration - - Weight 60.8 kg (134 lb) 12/04/2023 7:56 AM CDT Height 152 cm (4' 11.84 ) 12/04/2023 7:56 AM CDT Body Mass Index 26.31 12/04/2023 7:56 AM CDT Procedures * SONOGRAM - COMPLETE(Performed 01/12/2023) Performed for Encounter for ultrasound (HCC), Third (HCC), History of section, Hx successful (vaginal after ), currently (HCC), Prediabetes, 35 weeks gestation of (HCC) * SONOGRAM - COMPLETE(Performed 12/15/2022) Performed for Encounter for ultrasound (HCC), Third (HCC), History of section, Hx successful (vaginal after ), currently (HCC), Prediabetes, 31 weeks gestation of (HCC) * SONOGRAM - COMPLETE(Performed 11/17/2022) Performed for Encounter for ultrasound (HCC), Third (HCC), History of section, Hx successful (vaginal after ), currently (HCC), Prediabetes, 27 weeks gestation of (HCC) * SONOGRAM - COMPLETE(Performed 10/06/2022) Performed for Encounter for ultrasound (HCC), Third (HCC), History of section, Hx successful (vaginal after ), currently (HCC), Prediabetes, 21 weeks gestation of (HCC) Results * SONOGRAM - COMPLETE (01/12/2023 10:06 AM CDT) Only the most recent of4 resultswithin the time period is included. Anatomical Region Laterality Modality Other 01/12/2023 10:0 6 AM CDT Narrative 01/12/2023 12:31 PM CDT [facility] PHONE: FAX: Pat. Name: LAVELLE ANTHONY Pat. No: [id number] Study Date: 01/12/2023 10:06am , Age: 01 1995, 27 Pregnancies: 3, Para 1102 Height: 62 in Weight: 128 lb LMP: 05/09/2022 GA by LMP: 35w3d GA by Base: 35w3d JOHN: 02/13/2023 GA by US: 33w5d JOHN: 02/25/2023 GA Selected: 35w3d (LMP) JOHN: 02/13/2023 Referring MD: Blake Ivy MD Beer Coil Cleaner: Brisa Gonzalez RDMS CPT4: 03839 BMI: 23.41 Hist/Ind: G1: C/S @ 36 wk 2722 gm PROM G2: @ 38 wk GDM-A1 G3: Bilateral UTD @ 27 wk, GDM-A1, growth LGA MEASUREMENTS & AGE GROWTH EVALUATION Measurement GA Range Srce %for GA Ratios ----- ---- ------- BPD 8.7 cm 35w1d (53f4o-43p2c) Hadl BPD 46% FL/BPD 0.76 (0.71 - 0.87) HC 31.0 cm 34w4d (45o2a-11i0o) Hadl HC 7% FL/AC 0.18 (0.20 - 0.24* AC 37.3 cm 41w2d (80v0q-86m6p) Hadl AC >99 HC/AC 0.83 (0.93 - 1.12* FL 6.6 cm 34w1d (80i4u-89g0u) Hadl FL 13% CI 0.80 (0.70 - 0.86) HL 6.0 cm 35w0d (86z0k-82g4d) Rodolfo HL 42% GA for sonogram 33w5d (59z8q-32x4b) Weight Estimate: based on (HC,FL) Hadlock Weight: 3440 gm (2938-3942gm) Had : 7lbs, 9oz Normal: 2682 gm (2012-3353gm) Had Wt% >97 for 35w3d Heart Rate: 168 bpm Amniotic Fluid Index: 16.9cm (07.8-24.9) Q1: 8.1cm Q2: 2.9cm Q3: 1.8cm Q4: 4.1cm EVAL, PLACENTA Presentation: cephalic Placenta: posterior:fundal Heart Rate: 168 bpm Amniotic Fluid Volume: normal Anatomy!Normal!Abnormal!Suboptimal!Prev. Seen!Comments Cranium ! ! ! ! x ! Mdl (CSP/Thal! ! ! ! x ! Ventricles ! ! ! ! x ! Choroid Plexu! ! ! ! x ! Cerebellum ! ! ! ! x ! Cisterna M. ! ! ! ! x ! Nuchal Fold ! ! ! ! x ! Orbits ! ! ! ! x ! Profile ! ! ! ! x ! Nasal Bone ! ! ! ! x ! Lip ! ! ! ! x ! Spine ! ! ! ! x ! Lungs ! ! ! ! x ! 4 Chamber Hea! ! ! ! x ! LVOT ! ! ! ! x ! RVOT ! ! ! ! x ! 3 Vessel View! ! ! ! x ! 3 Vessel Trac! ! ! ! x ! Cross-over ! ! ! ! x ! Ductal Arch ! ! ! ! x ! Aortic Arch ! ! ! ! x ! Caval View ! ! ! ! x ! Situs ! ! ! ! x ! Diaphragm ! ! ! ! x ! Stomach ! ! ! ! x ! Bowel ! ! ! ! x ! Kidneys ! x ! ! ! !AP renal pelvis: RT = 6.2 mm & LT = 3.8 mm (normal < 7.0 mm) Bladder ! ! ! ! x ! 3 Vessel Cord! ! ! ! x ! Cord In! ! ! ! x ! Upper Extremi! ! ! ! x ! Hands ! ! ! ! x ! Lower Extremi! ! ! ! x ! Feet ! ! ! ! x ! External Delilah! ! ! ! x ! Placental Cor! ! ! ! x ! CLINICAL SUMMARY IMPRESSION: Single, live, intrauterine at 35w3d size is large for gestational age (LGA) Amniotic fluid volume is within normal limits No malformations were seen within the limitations of ultrasound RECOMMEND: Ultrasound in 4 weeks for growth Patient states that GDM-A1 is well controlled Thank you for allowing us the opportunity to care for your patient Karthikeyan Mims MD <Electronic Signature> 01/12/2023 12:31pm Karthikeyan Mims MD [facility] ORDERABLES
--- OUTSIDE RECORDS SUMMARY | 2024-07-02 11:44 | XMS_ITS | Clinical Summary ---
Author Organization [facility] Address [address] [place] [address] Care Team Providers Care Quenching Car Operator Name Role Phone No, Physician Primary Care Provider [phone] Allergies No known active allergies Medications 76-jdcv-andkgn 6-dha 30 mg iron-1mg -200 mg capsule Take 1 tablet by mouth daily Active acetaminophen (TYLENOL) 325 mg tabletIndicatio ns:Pain Take 2 tablets (650 mg total) by mouth every 4 (four) hours as needed for pain 30 tablet 01/31/2023 Active docusate sodium (COLACE) 100 mg capsuleIndicati ons:constipatio n,Stool Softener Take 1 capsule (100 mg total) by mouth 2 (two) times a day 14 capsule 01/31/2023 Active ibuprofen (ADVIL,MOTRIN) 600 mg tabletIndicatio ns:Cramps Take 1 tablet (600 mg total) by mouth every 6 (six) hours as needed for pain 40 tablet 01/31/2023 Active vit,jbvw53-mhrm -folic (PRENATABS RX) tablet tabletIndicatio ns:Vitamin Deficiency Prevention Take 1 tablet by mouth daily 30 tablet 02/01/2023 Active aspirin 81 mg enteric coated tablet Take 1 tablet every day by oral route. 12/15/2022 Active albuterol HFA (PROVENTIL HFA,VENTOLIN HFA,PROAIR HFA) 90 mcg/actuation inhaler Inhale 2 puffs every 4 (four) hours as needed for wheezing for up to 7 days 1 each 07/09/2023 Active Active Problems Problem Noted Date Diagnosed Date Language difficulty 03/08/2023 Overview (03/08/2023): Pt speaks Kazakh; doesn't speak Gabonese. Pt needs lang interpreter services. 37 weeks gestation of 01/29/2023 Delivery with history of section 2022 Gestational diabetes mellitus (GDM) in third tri mester 01/29/2023 Surgical History Surgery Date Site/Laterality Comments SECTION 12/05/2016 VAGINAL AFTER SECTION 02/03/2020 Medical History Medical History Date Comments Gestational diabetes 12/08/2022 Social History Tobacco Use Types Packs/Day Years Used Date Smoking Tobacco: Never Smokeless Tobacco: Never Tobacco Cessation:Counseling Given: Not Answered AUDIT-C Answer Date Recorded Q1: How often do you have a drink containing alcohol? Never 01/29/2023 Q2: How many drinks containi ng alcohol do you have on a typical day when you are drinking? Patient does not drink Q3: How often do you have si x or more drinks on one occasion? Never 01/29/2023 [place] Depression Scale Answer Date Recorded [place] Depression Scale Total 0 01/31/2023 The thought of harming myself has occurred to me . Never 01/31/2023 Personal Safety Answer Date Recorded Have you ever been in or are you currently in a harmful physical or emotional relationship or is someone making you feel afraid or unsafe? Denies 09/24/2023 Comments No Sex and Gender Information Value Date Recorded Sex Assigned at Not on file Legal Sex Female 4:49 AM CDT Gender Identity Not on file Sexual Orientation Not on file Obstetrics History Para Term AB IAB SAB Ectopic Multiple Livin g Live Births 3 3 2 1 0 3 3 Date Outcome GA Total Labor Labor/2nd/3rd Weight Sex Type Anes PTL Chari A1 A5 Name Clin 2016 36w 0d M CS-LT ranv Livin g 2019 Term 38w 0d M Livin g 2022 Term 37w 6d 0h 02m 0h 02m 4.16 kg (9 lb 2.7 oz) M C-Sec tion Spinal N Livin g 8 9 SAN[facility] ANNA REEDER Emily B., MD Complications:None Delivery Location:[facility] Main C ampus (E L AND D PROCEDURE) Last Filed Vital Signs Vital Sign Reading Time Taken Comments Blood Pressure 114/62 09/24/2023 4:16 PM CDT Pulse 87 09/24/2023 4:16 PM CDT Temperature 36.7 C (98.1 F) 09/24/2023 4:16 PM CDT Respiratory Rate 16 09/24/2023 4:16 PM CDT Oxygen Saturation 99% 09/24/2023 4:16 PM CDT Inhaled Oxygen Concentration - - Weight 63.9 kg (140 lb 14 oz) 09/24/2023 4:16 PM CDT Height 157.5 cm (5' 2 ) 09/24/2023 4:16 PM CDT Body Mass Index 25.77 09/24/2023 4:16 PM CDT Plan of Treatment Health Maintenance Due Date Last Done Comments Albumin Creatinine Ratio, Urine 1995 Cervical Cancer Screening 1995 Hemoglobin A1C 1995 Hepatitis C Screening 1995 Dilated Eye Exam 1995 Foot Exam 1995 Lipid Panel 1995 DTaP/Tdap/Td Vaccine (1 - Tdap) 2006 Varicella Vaccines (1 of 2 - 13+ 2-dose series) 2008 Hepatitis B Screening 2013 Regular Well Visit/Exam 18-64 2013 Pneumococcal vaccine <65 (1 of 2 - PCV) 2014 Influenza Vaccine (#1) 2024 Depression Screening 02/01/2024 01/31/2023 eGFR 09/23/2024 09/24/2023, 07/09/2023, 01/29/2023 HPV Vaccines Aged Out No longer eligi ble based on patient's age to complete this topic Procedures Procedure Name Priority Date/Time Associated Diagnosis Comments EGFR STAT 09/24/2023 4:35 PM CDT from Last 3 Months or Most Recently Relevant to Health Maintenance Results * eGFR (09/24/2023 4:35 PM CDT) eGFR >90 >=60 mL/min/1. 73 m2 Comment: Interpretive Data Reference Interval Normal >/= 90 mL/min/1.73m2 Mildly decreased* 60 - 89 mL/min/1.73m2 Mildly to moderately decreased 45 - 59 mL/min/1.73m2 Moderately to severely decreased 30 - 44 mL/min/1.73m2 Severely decreased 15 - 29 mL/min/1.73m2 Kidney Failure < 15 mL/min/1.73m2 *Relative to young adult level Estimated glomerular filtration rate is determined by the 2020 CKD-EPI equation recommended by the National Kidney Foundation (A Unifying Approach to GFR Estimation: Recommendations of the NKF-ASK Task Force on Reassessing the Inclusion of Race in Diagnosing Kidney Disease, JASN 2020). The CKD-EPI equation should not be used for patients with unstable renal function and has not been validated in children and those over 70. Current interpretive data was last reviewed 2021. Testing performed by: [facility], [address] [place] [address]., [id number] Blood 09/24/2023 4:35 PM CDT 09/24/2023 4:50 PM CDT Brandi [facility] LAB BLOOD ORDERABLES Final Result [facility] [address] Department [place] [address] from Last 3 Months or Most Recently Relevant to Health Maintenance Insurance [facility] Advance Directives For more information, please contact: [phone] * Full Code (Latest Code Status on File) Date Activated Date Inactivated Comments 01/29/2023 5:05 PM 01/31/2023 9:08 PM * Full Code Date Activated Date Inactivated Comments 01/29/2023 1:27 PM 01/29/2023 5:05 PM Full CPR in case of cardiopulmonary arrest Care Teams Quenching Car Operator Relationship Specialty Start Date End Date No, Physician PCP - General 01/13/23
--- OUTSIDE RECORDS SUMMARY | 2024-07-02 11:44 | XMS_ITS | Clinical Summary ---
Author Organization [facility] [employer] Address [address] [place] [address] Care Team Providers Care Map Drafter Name Role Phone Unavailable Primary Care Provider Unavailabl e Source Comments [facility],non-owned Affiliates and Associated Physician Practices is amultiple site organization consisting of ambulatory clinics and hospital sitesin [place], [place], [place] and [place]. This disclosure is being madepursuant to the Care Everywhere program and may not contain all information available regarding this patient. Last updated 18.[facility] Allergies No known active allergies Medications * Be aware that medications may not be up to date on this document. Alwaysverify current medications with the patient. Medication Sig Dispensed Refills Start Date End Date Status albuterol HFA (Proventil; Ventolin; Proair) 108 (90 Base) MCG/ACT inhaler Inhale 2 (two) puffs by mouth every 4 hours as needed 07/09/2023 Active metFORMIN (Glucophage) 500 MG tablet 11/28/2023 Active naproxen (Naprosyn) 500 MG tablet Take 1 (one) tablet by mouth 2 times daily as needed 09/29/2023 Active propranolol (Inderal) 60 MG tablet Take 1 (one) tablet by mouth 2 times daily as needed (h/a) Active DULoxetine (Cymbalta) 20 MG capsuleIndications :Fibromyalgia Syndrome Take 1 (one) capsule by mouth at bedtime Reasons: Fibromyalgia Syndrome 30 capsule 02/04/2024 Active Active Problems No known active problems Social [...] Mass Index 26.31 12/04/2023 7:56 AM CDT Plan of Treatment Health Maintenance Due Date Last Done Comments PAP SMEAR 1995 HIV SCREENING 2010 HEPATITIS C SCREENING 05/12/2013 DTAP/TDAP/TD VACCINES (1 - Tdap) 2014 HEPATITIS B VACCINE (1 of 3 - 19+ 3-dose series) 2014 COVID-19 VACCINE (1 - 2023-2 5 season) 2024 INFLUENZA VACCINE (#1) 2024 12/10/2021 DEPRESSION SCREENING 05/14/2024 ZOSTER VACCINE (1 of 2) 2045 HIB VACCINE Aged Out No longer eligi ble based on patient's age to complete this topic HPV VACCINE Aged Out No longer eligi ble based on patient's age to complete this topic MENINGOCOCCAL (Group B) VACCINE Aged Out No longer eligible based on patient's age to complete this topic MENINGOCOCCAL VACCINE Aged Out No chetan evette eligible based on patient's age to complete this topic PNEUMOCOCCAL VACCINE Aged Out No long er eligible based on patient's age to complete this topic
--- OUTSIDE RECORDS SUMMARY | 2024-07-02 11:44 | XMS_ITS | Referral Summary ---
Author Organization [facility] Address [address] [place] [address] Care Team Providers Care Associate Professor Of Biblical Studies Name Role Phone No, Physician Primary Care Provider [phone] Allergies No known active allergies Medications 10-kpyz-opgpyf 6-dha 30 mg iron-1mg -200 mg capsule [...] needed for pain 40 tablet 01/31/2023 Active vit,mcnq06-tizt -folic (PRENATABS RX) tablet tabletIndicatio ns:Vitamin Deficiency [...] Language difficulty 03/08/2023 Overview (03/08/2023): Pt speaks Vietnamese; doesn't speak Nauruan. Pt needs mucker coffer[place] services. 37 weeks gestation of 01/29/2023 Delivery with history of section 2022 Gestational diabetes mellitus (GDM) [facility] 01/29/2023 Social History Tobacco Use Types Packs/Day Years [...] more drinks on one occasion? Never 01/29/2023 [place] Depression Scale Answer Date Recorded [place] Depression Scale Total 0 01/31/2023 The thought [...] 09/24/2023 4:16 PM CDT Plan of Treatment Not on file Procedures Procedure Name Priority Date/Time Associated Diagnosis [...] was last reviewed 2021. Testing performed by: [facility], [address] [place] [address]., [id number] Blood 09/24/2023 4:3 5 PM CDT 09/24/2023 4:50 PM CDT us Brandi [facility] LAB BLOOD ORDERABLES Final Result Performing Organization Address City/State/ZIP Co ga Phone Number [facility] [address] Department [place] [address] from Last 3 Months or Most Recently Relevant to Health Maintenance Insurance [facility] Advance Directives For more information, please contact: [phone] * Full Code (Latest Code Status on File) Date Activated Date Inactivated Comments 01/29/2023 5:05 PM 01/31/2023 9:08 PM * Full Code Date Activated Date Inactivated Comments 01/29/2023 1:27 PM 01/29/2023 5:05 PM Full CPR in case of cardiopulmonary arrest Care Teams Associate Professor Of Biblical Studies Relationship Specialty Start Date End Date No, Physician PCP - General 01/13/23
--- OUTSIDE RECORDS SUMMARY | 2024-07-02 11:44 | XMS_ITS | Referral Summary ---
Author Organization [facility] [employer] Address [address] [place] [address] Care Team Providers Care It Solutions Sales Consultant Name Role Phone Unavailable Primary Care Provider Unavailabl e Source Comments [facility],non-owned Affiliates and Associated Physician Practices is amultiple site organization consisting of ambulatory clinics and hospital sitesin [place], [place], [place] and [place]. This disclosure is being madepursuant to the Care Everywhere program and may not contain all information available regarding this patient. Last updated 18.[facility] [employer] Allergies No known active allergies Medications * [...] 12/04/2023 7:56 AM CDT Plan of Treatment Not on file
--- OUTSIDE RECORDS SUMMARY | 2024-07-02 11:44 | XMS_ITS | Encounter Summary ---
Author Organization [facility] Address [address] [place] [address] Care Team Providers Care Turret Punch Operator Name Role Phone Unavailable Primary Care Provider Unavailabl e Encounter Details Date Type Department Care Team (Late st Contact Info) Description 07/01/2024 External Device Data [facility] ABSTRACTION Provider, Abstract NO ADDRESS ON FILE Social History Tobacco Use Types Packs/Day Years Used Date Smoking Tobacco: Unknown Alcohol Use Standard Drinks/Week Comments Never 0 (1 standard drink = 0.6 oz pur e alcohol) Feeling Safe Answer Date Recorded Are you in a relationship wi th someone who hurts you emotionally and/or physically? No 06/02/2024 Food Insecurity Answer Date Recorded Social/Environmental Concerns No concerns Transportation Needs Answer Date Record ed Social/Environmental Concerns No concerns Housing Stability Answer Date Recorded Social/Environmental Concerns No concerns Utility Needs Answer Date Recorded Social/Environmental Concerns No concerns Comments Unknown Sex and Gender Information Value Date Recorded Sex Assigned at Not on file Legal Sex Female 5:13 PM WHEEL FILLER Gender Identity Not on file Sexual Orientation Not on file documented as of this encounter Plan of Treatment Not on file documented as of this encounter Visit Diagnoses Not on filedocumented in this encounter
--- OUTSIDE RECORDS SUMMARY | 2024-07-02 11:44 | XMS_ITS | Clinical Summary ---
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 Active propranoloL (INDERAL) 10 mg tablet Take 10 mg by mouth daily. Active metFORMIN (GLUCOPHAGE XR) 500 mg Extended Release 24 hour tablet Take 500 mg by mouth daily. Active acetaminophen (TYLENOL) 500 mg tablet Take 1 Tablet (500 mg) by mouth every 6 hours for 14 days. 56 Tablet 06/02/2024 2:13 PM [employer]ING SALES CONSULTANT 06/02/2024 06/16/19 25 docusate sodium (COLACE) 100 mg capsule Take 1 Capsule (100 mg) by mouth 2 times daily for 14 days. 28 Capsule 06/02/2024 2:13 PM [employer] C[employer]ING SALES CONSULTANT 06/02/2024 06/16/19 25 Active Problems Problem Noted Date Diagnosed Date Symptomatic cholelithiasis 06/01/2024 Encounters Date Type Department Care Team Description 07/01/2024 External Device Data STL ABSTRACTION Provider, Abstract 06/17/2024 External Device Data STL ABSTRACTION Provider, Abstract 06/16/2024 2:00 PM [employer]ING SALES CONSULTANT Office Visit [facility] Trauma and General Surgery [address] [facility] [address] [address] Mercedes Varner MD Postoperative follow-up (Primary Dx) 06/10/2024 External Device Data STL ABSTRACTION Provider, Abstract 06/05/2024 External Device Data STL ABSTRACTION Provider, Abstract 06/03/2024 External Device Data STL ABSTRACTION Provider, Abstract 06/02/2024 10:05 AM W[employer] C[employer]ING SALES CONSULTANT Anesthesia Event [facility] Operating Room [address] [place] [address] Jalen Ro MD 06/02/2024 9:21 AM W[employer] COVERING SALES CONSULTANT - 06/02/2024 11:14 AM [employer]ING SALES CONSULTANT Surgery [facility] Operating Room [address] [place] [address] Veronica Mayberry MD CHOLECYSTECTOMY LAPAROSCOPIC 06/02/2024 Travel 06/01/2024 6:48 PM W[employer] COVERING SALES CONSULTANT - 06/02/2024 3:28 PM WIND[employer] COVERING SALES CONSULTANT Emergency [facility] [address] [place] [address] Lawrence Hogue MD Schmidt, Lauren, MD Jensen, Abbie May, MD Symptomatic cholelithiasis Discharge Disposition: Home or Self Care from Last 3 Months Social History Tobacco Use Types Packs/Day Years Used Date Smoking Tobacco: Unknown Tobacco Cessation:Counseling Given: Not Answered Alcohol Use Standard Drinks/Week Comments Never 0 [...] on file Legal Sex Female 5:13 PM WINDOW COVERING SALES CONSULTANT Gender Identity Not on file Sexual Orientation Not on file Last Filed Vital Signs Vital Sign Reading Time Taken Comments Blood Pressure 98/62 06/16/2024 2:25 PM [employer] COVERING SALES CONSULTANT Pulse 90 06/16/2024 2:25 PM WIND[employer] COVERING SALES CONSULTANT Temperature 36.4 C (97.6 F) 06/02/2024 3:17 PM W[employer] C[employer]ING SALES CONSULTANT Respiratory Rate 14 06/02/2024 3:17 PM W[employer] COVERING SALES CONSULTANT Oxygen Saturation 100% 06/16/2024 2:25 PM [employer] COVERING SALES CONSULTANT Inhaled Oxygen Concentration - - Weight 61.7 kg (136 lb 0.4 oz) 06/16/2024 2:25 P M [employer] COVERING SALES CONSULTANT Height 152.4 cm (5') 06/16/2024 2:25 PM W[employer] COVERING SALES CONSULTANT Body Mass Index 26.57 06/16/2024 2:25 PM W[employer] COVERING SALES CONSULTANT Plan of Treatment Health Maintenance Due Date Last Done Comments HEPATITIS B VACCINES (1 of 3 - 19+ 3-dose series) 2014 CERVICAL CANCER SCREENING 2016 DTAP/TDAP/TD VACCINES (2 - T d or Tdap) 02/02/2030 02/03/2020 INFLUENZA VACCINE Completed 02/08/2024 HPV VACCINES Aged Out No longer eligi ble based on patient's age to complete this topic Medical Devices Implanted Type Area Title Examiner Device Identifier Shelf Expiration Date Model / Serial / Lot Solutions [employer] Ligamax Endo Multi Clip 5mm El5ml - [id number] Implanted:Qty : 1 on 06/02/2024 by Veronica Mayberry MD at [facility] Clip N/A: Abdomen [employer] [id number] 02/10/2029 EL5ML / / [id number] Procedures Procedure Name Priority Date/Time Associated Diagnosis Comments POC GLUCOSE Routine 06/02/2024 11:14 AM [employer]OVER[employer] SALES CONSULTANT PATHOLOGY Pathology 06/02/2024 10:51 AM [employer] COVERING SALES CONSULTANT ID ANES INSERT ENDOTRACHEAL AIRWAY Routine 06/02/2024 10:27 AM [employer] COVERING SALES CONSULTANT HERNIA UMBILICAL REPAIR 06/02/19 9:21 AM W[employer] COVERING SALES CONSULTANT ID LAPAROSCOPY SURG CHOLECYSTECTOMY 06/02/2024 9:21 AM [employer] COVERING SALES CONSULTANT POC GLUCOSE Routine 06/02/2024 9:03 AM W[employer] COVERING SALES CONSULTANT HCG QUALITATIVE, URINE Stat 7:55 AM [employer] COVERING SALES CONSULTANT TYPE AND SCREEN Routine 06/02/2024 2:15 AM [employer] COVERING SALES CONSULTANT COMPREHENSIVE METABOLIC PANEL Routine 06/02/2024 2:15 AM [employer] COVERING SALES CONSULTANT CBC WITH DIFFERENTIAL Routine 06/02/2024 2:15 AM W[employer] COVERING SALES CONSULTANT VERIFICATION BLOOD GROUP Stat 06/01/2024 6:16 PM W[employer] COVERING SALES CONSULTANT Encounter for blood typing LIPASE Stat 06/01/2024 6:16 PM W[employer] COVERING SALES CONSULTANT COMPREHENSIVE METABOLIC PANEL Stat 06/01/2024 6:16 PM W[employer] COVERING SALES CONSULTANT CBC WITH DIFFERENTIAL Stat 06/01/2024 6:16 PM WIND[employer] COVERING SALES CONSULTANT from Last 3 Months Results * (ABNORMAL) POC GLUCOSE (06/02/2024 11:14 AM WIND[employer] COVERING SALES CONSULTANT) Only the most recent of2 resultswithin the time period is included. GLUCOSE POC 111(H) 74 - 99 mg/dL 06/02/2024 11:14 AM WIND[employer] COVERING SALES CONSULTANT [facility] SPECIMEN SOURCE, GLUCOSE POC Whole Blood 06/02/2024 11:14 AM WIND[employer] COVERING SALES CONSULTANT [facility] COMMENT, GLU POC Notified RN/MD 06/02/2024 11:14 AM WIND[employer] COVERING SALES CONSULTANT [facility] Blood, whole 06/02/2024 11:1 4 AM WIND[employer] COVERING SALES CONSULTANT 06/02/2024 11:27 AM W[employer] COVERING SALES CONSULTANT Veronica Mayberry MD POINT OF CARE TESTING Final Result [facility]# [id number] [address] [facility] [place] [address] * PATHOLOGY (06/02/2024 10:51 AM WIND[employer] COVERING SALES CONSULTANT) CASE REPORT Surgical Pathology Report Case: [id number] Authorizing Provider: Veronica Mayberry MD Collected: 06/02/2024 10:51 AM Ordering Location: [facility] Received: 06/02/2024 11:31 AM Operating Room Pathologist: José Hensley MD Specimen: Gallbladder 12:16 PM W[employer] COVERING SALES CONSULTANT [facility] FINAL DIAGNOSIS A. Gallbladder, cholecystectomy - Mild acute cholecystitis (see comment) - Cholelithiasis 12:16 PM W[employer] COVERING SALES CONSULTANT [facility] at 1216 WIND[employer] COVERING SALES CONSULTANT GROSS DESCRIPTION Received in one container labeled Og Hines and gallbladder is an intact distended green gallbladder measuring 8.5 x 4.5 x 3 cm with cystic duct remnant measuring 0.5 cm in diameter (margin inked black). The serosa is smooth and dull. The lumen contains green viscous bile and approximately 100 smooth ovoid green-wylie calculi ranging from 0.5 to 1 cm in greatest dimension. The mucosa is velvety, green and yellow and the wall measures 0.1 cm in thickness. Robotics Specialist sections are submitted labeled: A1-cystic duct margin, neck, body, fundus. ARC 5 12:16 PM WINDOW COVERING SALES CONSULTANT [facility] MICROSCOPIC DESCRIPTION The slides are labeled [id number] and Og Guillen. Sections show the gallbladder with acute inflammation (few neutrophils) present in the mucosa, consistent with mild acute cholecystitis. 5 12:16 PM WINDOW COVERING SALES CONSULTANT [facility] OPERATIVE PROCEDURE 1: CHOLECYSTECTOMY LAPAROSCOPIC 2: HERNIA UMBILICAL REPAIR 5 12:16 PM WINDOW COVERING SALES CONSULTANT [facility] COMMENT Special stain, immunohistochemical, and/or in situ hybridization results are interpreted with controls that demonstrate appropriate staining reactions. Note on use of immunohistochemistry reagents and in situ hybridization probes: These tests were developed and their performance characteristics determined by [facility], Department of Laboratory Medicine. It has not been cleared or approved by the U.S. Food and Drug Administration. The FDA has determined that such clearance or approval is not necessary. The test is used for clinical purposes. It should not be regarded as investigational or for research. This laboratory is certified to perform high complexity testing. Frozen section/operating room consultation, gross examination and dissection, and case sign out may have been performed in part or completely in the following laboratories: [facility], CLIA #[id number] [address] [place] [address] [facility], [place] #[id number] [address] [place] [address] [facility]/[place], [place] #[id number] [address] [place] [address] This report was created with the IMGuest voice-activated dictation system. Inherent to this system is the possibility of syntax, grammar, punctuation and other errors that could impact the interpretation of the report. If there are interpretative questions about aspects of this report, please contact the performing pathologist. 12:16 PM WINDOW COVERING SALES CONSULTANT [facility] Tissue ENTIRE GALLBLADDER / Unknown Collection / Unknown 06/02/2024 10:51 AM WIND[employer] COVERING SALES CONSULTANT 06/02/2024 11:31 AM WIND[employer] COVERING SALES CONSULTANT Veronica Mayberry MD PATHOLOGY/CYTOLOGY ORDERABLE S Final Result [facility]# [id number] [address] [place] [address] * ID ANES INSERT ENDOTRACHEAL AIRWAY (06/02/2024 10:27 AM WINDOW COVERING SALES CONSULTANT) Narrative Jalen Ro MD - 06/02/2024 10:27 AM W[employer] COVERING SALES CONSULTANT Jalen Ro MD 06/02/2024 10:28 AM Airway Date/Time: 06/02/2024 10:27 AM Location: OR Plan: elective intubation Patient Identity Confirmed by: Verbally with patient and armband Airway: not difficult Staffing Performed: Anesthesiologist (/DO) Authorized by: Jalen Ro MD Performed by: Jalen Ro MD Indications and Patient Condition: Indications for Airway Management: Anesthesia and airway protection Sedation Level: general anesthesia Preoxygenated: yes Patient Position: Sniffing Mask Difficulty Assessment: 1 - vent by mask Plan to extubate at end of case: Yes Final Airway Details: Final Airway Type: Endotracheal airway ETT Cuffed: Yes Cuff Volume (mL): 5 Technique Used for Successful ETT Placement: Direct laryngoscopy Devices/Methods Used in Placement: Anterior pressure/BURP and intubating stylet Blade Type: curved blade Blade Size: 3 Insertion Site: Oral ETT Size (mm): 6.0 Measured from: Teeth ETT to Teeth (cm): 23 Tube secured with: Tape Placement Verified by: auscultation, end tidal CO2 and chest rise Number of Attempts at Approach: 1 Additional Procedure Information: atraumatic and dentition unchanged Jalen Ro MD PROCEDURE/MINOR SURGICAL ORDERAB LES Final Result * (ABNORMAL) HCG QUALITATIVE, URINE (06/02/2024 7:55 AM WIND[employer] COVERING SALES CONSULTANT) HCG QUAL URINE Negative Negative 06/02/2024 8:05 AM [facility] COLOR UA Yellow Pale to Dark Yellow 06/02/2024 8:05 AM [facility] CLARITY UA Slightly Cloudy(A) Clear 06/02/2024 8:05 AM [facility] Urine URINE SPECIMEN OBTAINED BY CLEAN CATCH PROCEDURE / Unknown 06/02/2024 7:55 AM W[employer] COVERING SALES CONSULTANT 06/02/2024 7:55 AM WIND[employer] COVERING SALES CONSULTANT Benoit Romero MD URINE ORDERABLES Final Result [facility]# [id number] [address] [place] [address] * (ABNORMAL) CBC WITH DIFFERENTIAL (06/02/2024 2:15 AM WIND[employer] COVERING SALES CONSULTANT) Only the most recent of2 resultswithin the time period is included. WBC 11.7(H) 4.0 - 9.8 K/uL 06/02/2024 2:43 AM [facility] RBC 3.94 3.90 - 4.90 M/uL 06/02/2024 2:43 AM [facility] HEMOGLOBIN 12.4 11.8 - 14.8 g/dL 06/02/2024 2:43 AM [facility] [email or web address] [facility] HEMATOCRIT 37.5 35.5 - 44.0 % 06/02/2024 2:43 AM [facility] [email or web address] [facility] MCV 95.2 82.0 - 99.0 fL 06/02/2024 2:43 AM [facility] [email or web address] [facility] MCH 31.5 27.2 - 32.6 pg 06/02/2024 2:43 AM [facility] [employer] [facility] MCHC 33.1 31.5 - 35.5 g/dL 06/02/2024 2:43 AM [facility] RDW 13.1 11.5 - 14.5 % 06/02/2024 2:43 AM [facility] RDW-STDEV 46.0 37.1 - 48.7 fL 06/02/2024 2:43 AM W[employer] COVERING SALES CONSULTANT [facility] PLATELETS 275 140 - 350 K/uL 06/02/2024 2:43 AM [facility] MPV 10.0 9.3 - 12.4 fL 06/02/2024 2:43 AM [facility] NEUTROPHILS 65 % 06/02/2024 2:43 AM [facility] LYMPHOCYTES 25 % 06/02/2024 2:43 AM [facility] MONOCYTES 9 % 06/02/2024 2:43 AM [facility] EOSINOPHILS 1 % 06/02/2024 2:43 AM [facility] BASOPHILS 0 % 06/02/2024 2:43 AM [facility] IMMATURE GRANULOCYTES 0 % 06/02/2024 2:43 AM [facility] NEUTROPHIL ABSOLUTE 7.58(H) 1.90 - 7.00 K/uL 06/02/2024 2:43 AM [facility] LYMPHOCYTE ABSOLUTE 2.91 0.70 - 4.50 K/uL 06/02/2024 2:43 AM [facility] MONOCYTE ABSOLUTE 1.00 0.10 - 1.30 K/uL 06/02/2024 2:43 AM [facility] EOSINOPHIL ABSOLUTE 0.14 0.00 - 0.70 K/uL 06/02/2024 2:43 AM [facility] BASOPHILS ABSOLUTE 0.03 0.00 - 0.20 K/uL 06/02/2024 2:43 AM [facility] IMMATURE GRANULOCYTES ABSOLUTE 0.04(H) 0.00 - 0.03 K/uL 06/02/2024 2:43 AM [facility] Blood Venipuncture / Unknown 06/02/2024 2:15 AM W[employer] COVERING SALES CONSULTANT 06/02/2024 2:23 AM W[employer] COVERING SALES CONSULTANT Irma Brandon PA-C HEMATOLOGY ORDERABLES Otilia l Result [facility] [place]# [id number] [address] [address] * TYPE AND SCREEN (06/02/2024 2:15 AM WIND[employer] COVERING SALES CONSULTANT) Pathologist [facility] ABO GROUP B 06/02/2024 3:52 AM W[employer] COVERING SALES CONSULTANT [facility]AT[facility] -- [facility] RH (D) TYPE Positive 06/02/2024 3:52 AM WIND[employer] COVERING SALES CONSULTANT [employer] [facility] -- [facility] ANTIBODY SCREEN Negative 06/02/2024 3:52 AM WIND[employer] COVERING SALES CONSULTANT [employer] [facility] -- [facility] Blood Venipuncture / Unknown 06/02/2024 2:15 AM W[employer] COVERING SALES CONSULTANT 06/02/2024 2:22 AM W[employer] COVERING SALES CONSULTANT Irma Brandon PA-C BLOOD BANK ORDERABLES Edit ed Result - Final Performing Organization Address City/[facility]/ZIP Co de Phone Number [facility] [id number] [address] [address] * (ABNORMAL) COMPREHENSIVE METABOLIC PANEL (06/02/2024 2:15 AM WIND[employer] COVERING SALES CONSULTANT) Only the most recent of2 resultswithin the time period is included. Pathologist [facility] SODIUM 136 136 - 145 mmol/L 06/02/2024 3:15 AM WIND[employer] COVERING SALES CONSULTANT [facility] POTASSIUM 3.7 3.5 - 5.0 mmol/L 06/02/2024 3:15 AM W[employer] COVERING SALES CONSULTANT [facility] - [facility] CHLORIDE 102 98 - 107 mmol/L 06/02/2024 3:15 AM WIND[employer] COVERING SALES CONSULTANT [facility] CO2 25 22 - 29 mmol/L 06/02/2024 3:15 AM WIND[employer] COVERING SALES CONSULTANT [facility] CALCIUM 8.9 8.6 - 10.2 mg/dL 06/02/2024 3:15 AM W[employer] COVERING SALES CONSULTANT [facility] - [facility] BUN 8 6 - 20 mg/dL 06/02/2024 3:15 AM [facility]. [facility] CREATININE 0.54 0.51 - 0.95 mg/dL 06/02/2024 3:15 AM [facility] GLUCOSE 100(H) 74 - 99 mg/dL 06/02/2024 3:15 AM [facility]. [facility] TOTAL PROTEIN 7.0 6.7 - 8.6 g/dL 06/02/2024 3:15 AM [facility]. [facility] ALBUMIN 4.0 3.5 - 5.2 g/dL 06/02/2024 3:15 AM [facility]. [facility] BILIRUBIN TOTAL 0.9 0.3 - 1.2 mg/dL 06/02/2024 3:15 AM [facility] ALKALINE PHOSPHATASE 80 35 - 104 U/L 06/02/2024 3:15 AM [facility] AST 15 <33 U/L 06/02/2024 3:15 AM [facility] ALT 8 <34 U/L 06/02/2024 3:15 AM [facility] GFR >60 >=60 mL/min/1.7 3 sq meter 06/02/2024 3:15 AM [facility] Comment:eGFR calculated with 2020 CKD-EPI equation. Vegetarian diet, extremely high or low muscle mass, and may affect results. Cystatin C with Glomerular Filtration Rate is a suitable alternative for these patients. ANION GAP 9 8 - 16 mmol/L 06/02/2024 3:15 AM [facility] Blood Venipuncture / Unknown 06/02/2024 2:15 AM [facility] 06/02/2024 2:22 AM [facility] - 06/02/2024 3:15 AM [facility] Samples containing indocyanine green cause interferences on Total and/or Direct Bilirubin and must not be measured. Irma Brandon PA-C CHEMISTRY ORDERABLES Final Result [facility] SERVICES - [facility] CLIA# [id number] [address] [address] * VERIFICATION BLOOD GROUP (06/01/2024 6:16 PM WINDOW COVERING SALES CONSULTANT) ABO GROUP B 06/02/2024 7:59 AM WIND[employer] COVERING SALES CONSULTANT [facility] LABORATORY SERVICES -- [facility] RH (D) TYPE Positive 06/02/2024 7:59 AM WIND[employer] COVERING SALES CONSULTANT [facility] LABORATORY SERVICES -- [facility] Blood BLOOD SPECIMEN / Unknown Venipuncture / Unknown 06/01/2024 6:16 PM W[employer] COVERING SALES CONSULTANT 06/02/2024 6:27 AM W[employer] COVERING SALES CONSULTANT Lydia Lopez MD BLOOD BANK ORDERABLES Final Result Performing Organization Address [facility] Co de Phone Number [facility] LABORATORY SERVICES -- [facility] CLIA# [id number] [address] [address] * LIPASE (06/01/2024 6:16 PM WINDOW COVERING SALES CONSULTANT) LIPASE 52 13 - 60 U/L 06/01/2024 7:32 PM WIND[employer] COVERING SALES CONSULTANT [facility] - [facility] Blood Venipuncture / Unknown 06/01/2024 6:16 PM W[employer]OW COVERING SALES CONSULTANT 06/01/2024 6:50 PM W[employer] COVERING SALES CONSULTANT Lawrence Hogue MD CHEMISTRY ORDERABLES Final R esult Performing Organization Address City/[facility]/ZIP Co de Phone Number [facility] - [facility] [place]# [id number] [address] [address] from Last 3 Months Insurance [employer] (INTERNAL) [facility] [employer] [facility] Advance Directives For more information, please contact: [phone] * Full Code (Latest Code Status on File) Date Activated Date Inactivated Comments 06/02/2024 7:09 AM 06/02/2024 5:34 PM
--- OUTSIDE RECORDS SUMMARY | 2024-07-02 11:44 | XMS_ITS | Clinical Summary ---
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 3 Active ondansetron (ZOFRAN-ODT) 4 MG disintegrating tablet Take 1 tablet (4 mg total) by mouth every 8 (eight) hours as needed for Nausea. 20 tablet 5 Active naproxen (NAPROSYN) 500 MG tablet Take 1 tablet (500 mg total) by mouth 2 (two) times daily as needed (pain). 20 tablet 5 Active lactulose 20 GM/30ML solution Take 30 mLs (20 g total) by mouth daily as needed (constipati on). 240 mL 5 06/11/19 25 Encounters Date Type Department Care Team Description 06/01/2024 12:03 AM [employer]IGH [employer]OL [employer] - 06/01/2024 3:28 AM [facility] Emergency [facility] [place] [address] Jose Redd MD,PHD Abdominal Pain; Back Pain Discharge Disposition: Home or Self Care (Routine Discharge) 05/31/2024 Travel from Last 3 Months Social History Tobacco Use Types Packs/Day Years Used Date Smoking Tobacco: Never Smokeless Tobacco: Never Tobacco Cessation:Counseling Given: Not Answered Alcohol Use Standard Drinks/Week Comments Never 0 (1 standard drink = 0.6 oz pur e alcohol) Comments No Sex and Gender Information Value Date Recorded Sex Assigned at Female 05/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 Legal Sex Female 1:07 PM CDT Gender Identity Not on file Sexual Orientation Not on file Last Filed Vital Signs Vital Sign Reading Time Taken Comments Blood Pressure 97/69 06/01/2024 1:19 AM HIGH SCHOOL COACH Pulse 68 06/01/2024 1:19 AM HIGH SCHOOL COACH Temperature 36.3 C (97.3 F) 05/31/2024 11:37 PM HIGH SCHOOL COACH Respiratory Rate 20 06/01/2024 1:19 AM HIGH SCHOOL COACH Oxygen Saturation 100% 05/31/2024 11:37 PM HIGH SCHOOL COACH Inhaled Oxygen Concentration - - Weight 61.7 kg (136 lb) 05/31/2024 11:37 PM HIGH SCHOOL COACH Height 154.9 cm (5' 1 ) 05/31/2024 11:37 PM HIGH SCHOOL COACH Body Mass Index 25.7 05/31/2024 11:37 PM HIGH SCHOOL COACH Plan of Treatment Health Maintenance Due Date Last Done Comments Cervical Cancer Screening Pa p Smear (Age 21 to 29) Every 3 Years 1995 Cervical Cancer Screening 1995 Annual Physical 1998 Hepatitis C 2013 Hepatitis B Vaccines (1 of 3 - 19+ 3-dose series) 2014 COVID-19 Vaccine (2023-2 5 season) 2024 DTaP, Tdap and Td Vaccines ( 2 - Td or Tdap) 02/02/2030 02/03/2020 Influenza Adult Completed 02/08/2024, 12/10/2021 HPV Vaccines Aged Out No longer eligi ble based on patient's age to complete this topic Meningococcal B Vaccine Aged Out No l onger eligible based on patient's age to complete this topic Meningococcal Vaccine Aged Out No chetan evette eligible based on patient's age to complete this topic Pneumococcal Vaccine: Pediatrics (0 to 5 Years) and At-Risk Patients (6 to 64 Years) Aged Out No longer eligible b ased on patient's age to complete this topic RSV Immunizations Under 20 Months Aged Out No longer eligible b ased on patient's age to complete this topic Procedures Procedure Name Priority Date/Time Associated Diagnosis Comments CT ABD+PEL W CON STAT 06/01/2024 1:52 AM HIGH SCHOOL COACH URINALYSIS, AUTO, COMPLETE STAT 06/01/2024 1:21 AM HIGH SCHOOL COACH POCT URINE (BACK OFFICE) STAT 06/01/2024 1:17 AM HIGH SCHOOL COACH ECG 12-LEAD STAT 06/01/2024 12:17 AM HIGH SCHOOL COACH LIPASE STAT 06/01/2024 12:17 AM HIGH SCHOOL COACH COMPREHENSIVE METABOLIC PANEL STAT 06/01/2024 12:17 AM HIGH SCHOOL COACH CBC W/DIFF AUTOMATED STAT 06/01/2024 12:17 AM HIGH SCHOOL COACH from Last 3 Months Results * CT ABD+PEL W CON (06/01/2024 1:52 AM HIGH SCHOOL COACH) Anatomical Region Laterality Modality Abdomen Computed Tomogra phy 06/01/2024 2:46 AM HIGH SCHOOL COACH Impressions 06/01/2024 2:53 AM HIGH SCHOOL COACH Impression: 1. No acute abnormality identified within the abdomen or pelvis. 2. Uncomplicated cholelithiasis. 3. Moderate to large volume stool density present within the ascending and transverse colon. 4. Interval enlargement of the left ovarian cyst, now measuring 4.5 cm, previously 2.5 cm. Referred By: Interpreted By: Jordin Ford MD, 06/01/2024 2:46 AM Narrative 06/01/2024 2:53 AM HIGH SCHOOL COACH [facility] [address] [place], [place] [address] Examination: CT abdomen and pelvis with IV contrast. Clinical Information: Abdominal pain. Comparison:CT 1024. Technique: IV contrast: 100 mL Isovue 370. Oral contrast: None. Technical comments: Standard technique. Dose reduction: This CT exam was performed using one or more of the following dose reduction techniques: Automated exposure control, adjustment of the mA and/or kV according to patient size, and/or use of iterative reconstruction technique. Findings: LOWER CHEST Heart is normal in size. Lung bases are clear. No pleural or pericardial effusions. UPPER ABDOMEN Liver and bile ducts: No focal liver lesion. Portal vein and hepatic veins are patent. No biliary dilatation. Gallbladder: Stones are present within the gallbladder. No gallbladder wall thickening or pericholecystic fluid. Pancreas: Unremarkable. Spleen: Normal. RETROPERITONEUM Adrenals: Normal. Kidneys: Normal. Lymph nodes: No lymphadenopathy in the abdomen or pelvis. BOWEL AND PERITONEUM Bowel: No acute bowel obstruction. Moderate to large volume stool density present within the ascending and transverse colon. No acute inflammatory process. Free air or fluid: None. VASCULATURE The abdominal aorta is normal in caliber. PELVIS Interval enlargement of a left ovarian cyst, now measuring 4.5 cm, previously 2.5 cm. An IUD is in place. The urinary bladder appears unremarkable. BONES/SOFT TISSUES No significant lesion. Procedure Note Jordin Ford MD - 06/01/2024 [place] [id number] Examination: CT abdomen and pelvis with IV contrast. Clinical Information: Abdominal pain. Comparison:CT 1024. Technique: IV contrast: 100 mL Isovue 370. Oral contrast: None. Technical comments: Standard technique. Dose reduction: This CT exam was performed using one or more of thefollowing dose reduction techniques: Automated exposure control,adjustment of the mA and/or kV according to patient size, and/or use ofiterative reconstruction technique. Findings: LOWER CHEST Heart is normal in size. Lung bases are clear. No pleural or pericardialeffusions. UPPER ABDOMEN Liver and bile ducts: No focal liver lesion. Portal vein and hepaticveins are patent. No biliary dilatation. Gallbladder: Stones are present within the gallbladder. No gallbladderwall thickening or pericholecystic fluid. Pancreas: Unremarkable. Spleen: Normal. RETROPERITONEUM Adrenals: Normal. Kidneys: Normal. Lymph nodes: No lymphadenopathy in the abdomen or pelvis. BOWEL AND PERITONEUM Bowel: No acute bowel obstruction. Moderate to large volume stool densitypresent within the ascending and transverse colon. No acute inflammatoryprocess. Free air or fluid: None. VASCULATURE The abdominal aorta is normal in caliber. PELVIS Interval enlargement of a left ovarian cyst, now measuring 4.5 cm,previously 2.5 cm. An IUD is in place. The urinary bladder appearsunremarkable. BONES/SOFT TISSUES No significant lesion. Impression: 1. No acute abnormality identified within the abdomen or pelvis. 2. Uncomplicated cholelithiasis. 3. Moderate to large volume stool density present within the ascendingand transverse colon. 4. Interval enlargement of the left ovarian cyst, now measuring 4.5 cm,previously 2.5 cm. Referred By: Interpreted By: Jordin Ford MD, 06/01/2024 2:46 AM us Jordin NAVARRO CT Final Resu lt * (ABNORMAL) URINALYSIS, AUTO, COMPLETE (06/01/2024 1:21 AM H[employer]OL [employer]) SPECIMEN TYPE URINE CLEAN CATCH 06/01/2024 1:15 AM [facility] COLOR (U) YELLOW 06/01/2024 1:31 AM [facility] TRANSPARENCY CLEAR 06/01/2024 1:31 AM [facility] SPECIFIC GRAVITY (U) 1.029 1.001 - 1.030 06/01/2024 1:31 AM [facility] U PH 6.5 5.0 - 9.0 06/01/2024 1:31 AM [facility] LEUKOCYTES (U) 25(A) NEGATIVE 06/01/2024 1:31 AM [facility] NITRITES NEGATIVE NEGATIVE 06/01/2024 1:31 AM [facility] PROTEIN RANDOM (U) 20 <30 MG/DL 06/01/2024 1:31 AM HIGH S[employer]OL COACH [facility] GLUCOSE (U) NORMAL NORMAL MG/DL 06/01/2024 1:31 AM [facility] KETONES MG/DL (U) NEGATIVE NEGATIVE MG/DL 06/01/2024 1:31 AM [facility] UROBILINOGEN 2.0(A) NORMAL MG/DL 06/01/2024 1:31 AM [facility] BILIRUBIN (U) NEGATIVE NEGATIVE MG/DL 06/01/2024 1:31 AM [facility] BLOOD (U) NEGATIVE NEGATIVE 06/01/2024 1:31 AM [facility] MUCUS MANY /LPF 06/01/2024 1:31 AM [facility] WBC/HPF 5 <6 /HPF 06/01/2024 1:31 AM H[employer] S[employer]ACH [facility] RBC/HPF 3 <6 /HPF 06/01/2024 1:31 AM [facility] BACTERIA (U) FEW(A) NONE /HPF 06/01/2024 1:31 AM [facility]ACH [facility] SQUAMOUS EPITHELIALS MODERATE /HPF 06/01/2024 1:31 AM [facility] URINE SPECIMEN OBTAINED BY CLEAN CATCH PROCEDURE / Unknown 06/01/2024 1:21 AM [facility] Jordin NAVARRO URINE ORDERABLES Final Res ult [facility] [address] [place] [address], * POCT urine (06/01/2024 1:17 AM H[employer] S[employer]OL [employer]ACH) URINE HCG TEST NEGATIVE Internal Control: VALID Jordin NAVARRO POINT OF CARE TEST ORDERAB LES Final Result * ECG 12 lead (06/01/2024 12:17 AM HIGH SCHOOL COACH) 06/01/2024 12:1 7 AM [employer]ACH Narrative [facility] ([facility]) RAD - 06/03/2024 3:[address] 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: : 1995 Requested By: JOSE REDD Order Number: [id number] Elana OLMEDO: Hunter Morgan Measurements Intervals [place] Rate: 90 P: 43 ID: [id number] QRS: 10 QRSD: 77 T: 15 QT: 340 QTc: 416 Interpretive Statements SINUS RHYTHM Compared to ECG 11/13/2023 04:20:03 No significant changes SCHOOL COACH us Jose Redd MD,PHD ECG ORDERABLES Final Resu lt [facility] ([facility] * (ABNORMAL) COMPREHENSIVE METABOLIC PANEL (06/01/2024 12:17 AM [facility]) [facility] GLUCOSE 101(H) 70 - 99 MG/DL 06/01/2024 2:17 AM [facility] BUN 12 7 - 18 MG/DL 06/01/2024 2:17 AM [facility] CREATININE S/P/B 0.69 0.55 - 1.02 MG/DL 06/01/2024 2:17 AM [facility] SODIUM S/P/B 138 136 - 145 MMOL/L 06/01/2024 2:17 AM [facility] POTASSIUM S/P/B 3.7 3.5 - 5.1 MMOL/L 06/01/2024 2:17 AM [facility] CHLORIDE S/P/B 105 97 - 115 MMOL/L 06/01/2024 2:17 AM [facility] CO2 25.6 21 - 32 MMOL/L 06/01/2024 2:17 AM [facility] CALCIUM S/P/B 9.1 8.5 - 10.1 MG/DL 06/01/2024 2:17 AM [facility] BILIRUBIN TOTAL S/P/B 0.5 0.2 - 1.2 MG/DL 06/01/2024 2:17 AM [facility] Comment: THIS ASSAY IS NOT RECOMMENDED FOR PATIENTS UNDERGOING TREATMENT WITH ELTROMBOPAG DUE TO THE POTENTIAL FOR FALSELY ELEVATED RESULTS. TOTAL PROTEIN S/P/B 7.6 6.4 - 8.2 G/DL 06/01/2024 2:52 AM [facility] ALBUMIN S/P/B 3.7 3.4 - 5.0 G/DL 06/01/2024 2:17 AM [facility] AST 20 15 - 37 U/L 06/01/2024 2:17 AM [facility] ALT 10(L) 14 - 55 U/L 06/01/2024 2:17 AM [facility] ALKALINE PHOSPHATASE S/P/B 88 50 - 136 U/L 06/01/2024 2:17 AM [facility] ANION GAP 7.4 2 - 10 MMOL/L 06/01/2024 2:17 AM [facility] BUN CREATININE RATIO 17.4 6 - 26 06/01/2024 2:17 AM [facility] A/G RATIO 0.9(L) 1.0 - 2.0 RATIO 06/01/2024 2:52 AM [facility] GFR ESTIMATE >90 >90 ML/MIN/1.7 3 M2 06/01/2024 2:17 AM [facility] Comment: NOTE: eGFR is not calculated for patients <18 years of age or gender unknown. This is an estimated GFR calculation using the new CKD EPI creatinine equation without race and so does not require a correction factor for race. This estimated GFR should not be used for calculating drug doses. 06/01/2024 12:1 7 AM H[employer] S[employer]OL COACH us Jordin NAVARRO LABORATORY Final Resu lt [facility] [address] [place] [address], * (ABNORMAL) CBC W/DIFF AUTOMATED (06/01/2024 12:17 AM H[employer]) WBC 14.37(H) 4.5 - 11.0 x10'3/uL 06/01/2024 12:29 AM [facility] RBC 4.19(L) 4.20 - 5.40 x10'6/uL 06/01/2024 12:29 AM [facility] HGB 13.0 12.0 - 16.0 G/DL 06/01/2024 12:29 AM [facility] HCT 38.5 38.0 - 48.0 % 06/01/2024 12:29 AM [facility] MCV 91.9 81.0 - 99.0 FL 06/01/2024 12:29 AM [facility] MCH 31.0 27.0 - 31.0 PG 06/01/2024 12:29 AM [facility] MCHC 33.8 32.0 - 36.0 G/DL 06/01/2024 12:29 AM [facility] RDW 13.1 11.5 - 14.5 % 06/01/2024 12:29 AM [facility] PLT 333 130 - 400 x10'3/uL 06/01/2024 12:29 AM [facility] MPV 9.9 9.3 - 12.2 FL 06/01/2024 12:29 AM [facility] DIFFERENTIAL TYPE AUTOMATED DIFFERENTIAL 06/01/2024 12:29 AM [facility] NEUTROPHILS % 60.9 % 06/01/2024 12:29 AM [facility] LYMPHOCYTES % 30.1 % 06/01/2024 12:29 AM [facility] MONOCYTES % 7.2 % 06/01/2024 12:29 AM [facility] EOSINOPHILS 0.7 % 06/01/2024 12:29 AM [facility] BASOPHILS 0.5 % 06/01/2024 12:29 AM [facility] IMMATURE GRANS % 0.6 % 06/01/19 12:29 AM [facility] ABS. NEUTROPHILS 8.76(H) 1.80 - 7.70 x10'3/uL 06/01/2024 12:29 AM H[employer]ACH [facility] ABS. LYMPHOCYTES 4.33 1.00 - 4.80 x10'3/uL 06/01/2024 12:29 AM H[employer]ACH [facility] ABS. MONOCYTES 1.03(H) 0.24 - 0.86 x10'3/uL 06/01/2024 12:29 AM H[employer] S[employer]ACH [facility] ABS. EOSINOPHILS 0.10 0.04 - 0.36 x10'3/uL 06/01/2024 12:29 AM [employer] ABS. BASOPHILS 0.07 0.01 - 0.08 x10'3/uL 06/01/2024 12:29 AM H[employer]ACH [facility] ABS. 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
--- OUTSIDE RECORDS SUMMARY | 2024-07-02 11:45 | XMS_ITS | Data Portability ---
Author Organization JANET - SITomás Brewer Address [address] [facility] [place] [address] Care Team Providers Care Boilermaker Apprentice Name Role Phone ANDERSON THEODORE Primary Care Provider [phone] CRISTOBAL THOMAS Neurologist HAMZAH ADHIKARI Commercial Loan Underwriter Assessment Encounter Date Assessment Date Assessment LastModified by Organization Details LastModified Time 05/30/2024 05/30/2024 29 y/o female who presents with symptoms similar to GERD I discussed with her that this could also be her galbladder and that if the ER told her to return if it came back she may need to return to the ER We can send Famotidine to see if that helps but I told her that if she has continued pain/ worsening pain/ vomiting / fever then she will need to go to the ER. She verbalizes understanding and denies having any further questions. Not available 05/30/2024 13:08:00 Plan of Treatment Reminders Order Date Submit Date Provider Last Modified By Organization Details Last Modified Time Details Appointments ANY 15 2024 10:00A M TAVARES Olivares-Tez Not available Not available Not available Lab urinal ysis, dipsti ck 2024 025 JOSE GUADALUPE In-Office Order, Internal Use Only DO Not Attach Compendium DO Not Attach Compendium, Do Not Delete/merge, [id number] 05/30/2024 13:09:41 pregna ncy test, urine 2024 025 JOSE GUADALUPE In-Office Order, Internal Use Only DO Not Attach Compendium DO Not Attach Compendium, Do Not Delete/merge, [id number] 05/30/2024 13:09:52 HbA1c (hemog lobin A1c), blood 2024 025 JOSE GUADALUPE In-Office Order, Internal Use Only DO Not Attach Compendium DO Not Attach Compendium, Do Not Delete/merge, [id number] 05/15/2024 15:42:45 glucos e, finger stick, blood 2024 025 JOSE GUADALUPE In-Office Order, Internal Use Only DO Not Attach Compendium DO Not Attach Compendium, Do Not Delete/merge, [id number] 05/15/2024 15:39:50 pap, IG + reflex HPV 2023 024 [facility], [address] [facility], [address], [place], [address], 05/12/2024 12:12:08 HbA1c (hemog lobin A1c), blood 2023 024 [email or web address] In-Office Order, Internal Use Only DO Not Attach Compendium DO Not Attach Compendium, Do Not Delete/merge, [id number] 02/08/2024 14:37:25 glucos e, finger stick, blood 2023 024 [email or web address] In-Office Order, Internal Use Only DO Not Attach Compendium DO Not Attach Compendium, Do Not Delete/merge, [id number] 02/08/2024 14:37:26 rapid SARS CoV 2 Ag, QL IA, respir atory specim en 2023 024 [email or web address] In-Office Order, Internal Use Only DO Not Attach Compendium DO Not Attach Compendium, Do Not Delete/merge, [id number] 02/01/2024 11:22:10 rapid flu (A+B) 2023 024 [email or web address] In-Office Order, Internal Use Only DO Not Attach Compendium DO Not Attach Compendium, Do Not Delete/merge, [id number] 02/01/2024 11:22:11 Referral None record ed. Procedures None record ed. Surgeries None record ed. Imaging US, breast , unilat eral 2023 024 [email or web address] [facility] [address] [place], [address], 05/29/2024 11:13:08 US, breast , unilat eral 2023 024 [facility], [address] [facility], [place], [address], 05/20/2024 10:20:03 Medication Orders famoti dine 20 mg tablet 2024 025 [facility], [address] [place], [address], 05/30/2024 13:04:53 Neuron tin 300 mg capsul e 2024 025 [facility], [address], [place], [id number], 05/15/2024 18:17:09 propra nolol 60 mg tablet 2024 025 [facility], [address] [place], [address], 05/15/2024 15:14:44 Anapro x DS 550 mg tablet 2024 025 [facility]07171, [address], [place], [id number], 05/15/2024 15:14:47 cetiri zine 10 mg tablet 2024 025 [facility] #52200, [address], [place], [id number], 05/15/2024 15:14:49 flutic asone propio ron 50 mcg/ac tuatio n nasal spray, suspen ilana 2024 025 [facility] #06768, [address], [place], [id number], 05/15/2024 15:14:43 Linzes s 145 mcg capsul e [address] [facility]55904, [address], [place], [id number], 05/02/2024 12:46:50 metron idazol e 0.75 % (37.5 mg/5 gram) vagina l gel 2023 025 [facility], [address], [place], [id number], 05/15/2024 15:40:26 Neuron tin 100 mg capsul e 2023 025 [facility] #28730, [address], [place], [id number], 05/15/2024 14:39:14 propra nolol 60 mg tablet [address] [facility] [address], [address] [place], [address], 02/08/2024 14:37:28 Anapro x DS 550 mg tablet [address] [facility] #89256, [address], [place], [id number], 02/08/2024 14:37:23 cetiri zine 10 mg tablet 2023 024 [facility] #31673, [address], [place], [id number], 02/08/2024 14:42:40 flutic asone propio ron 50 mcg/ac tuatio n nasal spray, suspen ilana 2023 024 [facility] #95096, [address] [facility] [place], [id number], 02/08/2024 14:42:40 Zithro max Z-Honorio 250 mg tablet 2023 JOSE GUADALUPE [facility] #44732, [address], [place], [id number], 02/08/2024 14:07:14 Tessal on Perles 100 mg capsul e 2023 024 [facility] #84185, [address], [place], [id number], 05/15/2024 14:33:07 Patient TargetsNo targets recorded. Patient Instructions Encounter Date Encounter Id Patient Instructions Last Modified By Organization Details Last Modified Time 02/01/2024 [id number] Sinusitis aguda: Instrucciones de cuidado - [Acute Sinusitis: Care Instructions] [email or web address] Not available 02/01/2024 11:22:09 Take an zjra-yim-ihamzxq pain medicine, such as acetaminophen (Tylenol), ibuprofen (Advil, Motrin), or naproxen (Aleve). Read and follow all instructions on the label. If the doctor prescribed antibiotics, take them as directed. Do not stop taking them just because you feel better. You need to take the full course of antibiotics. Be careful when taking jezf-bvy-mhrnrnz cold or flu medicines and Tylenol at the same time. Many of these medicines have acetaminophen, which is Tylenol. Read the labels to make sure that you are not taking more than the recommended dose. Too much acetaminophen (Tylenol) can be harmful. Breathe warm, moist air from a steamy shower, a hot bath, or a sink filled with hot water. Avoid cold, dry air. Using a humidifier in your home may help. Follow the directions for cleaning the machine. Use saline (saltwater) nasal washes to help keep your nasal passages open and wash out mucus and bacteria. You can buy saline nose drops at a grocery store or drugstore. Or you can make your own at home by adding 1 teaspoon of salt and 1 teaspoon of baking soda to 2 cups of distilled water. If you make your own, fill a bulb syringe with the solution, insert the tip into your nostril, and squeeze gently. Blow your nose. Put a hot, wet towel or a warm gel pack on your face 3 or 4 times a day for 5 to 10 minutes each time. Try a decongestant nasal spray like oxymetazoline (Afrin). Do not use it for more than 3 days in a row. Using it for more than 3 days can make your congestion worse yarauz Not available 02/01/2024 11:22:08 02/08/2024 [id number] vacuna contra la influenza (gripe): instrucciones de cuidado - [influenza (flu) vaccine: care instructions] yarauz Not available 02/08/2024 14:37:23 aprenda acerca d el peso saludable - [learning about healthy weight] yarauz Not available 02/08/2024 14:37:23 stop metformin s top nortriptilina yarauz Not available 02/08/2024 14:42:32 Keep a headache diary to see if you can determine what are your headache/migraine triggers Take medicine as directed for migraine prophylaxis Take breakthrough headache medicine as soon as you feel headache coming on Lay in a dark room if possible and try to relax Drink plenty of water, get appropriate rest, try auto relaxation, avoid triggers if known if worsening symptoms seek immediate re-eval Keep a food diary Follow a healthy heart low fat low cholesterol diet exercise 50-60 minutes 5-6 times per week Increase water intake Stop concentrated sugars Benefits risks of psychotropic medications if you develop suicidal thoughts or behaviors seek immediate reevaluation avoid alcohol when taking psychotropic medications if you develop fevers, chills, diarrhea, muscle symptoms or seizures to seek immediate reevaluation take your medicine as directed Pt. advised to call 911 or go to a local Emergency Department with any SI or HI, thoughts of self harm or any psychiatric emergency. Pt. is deemed safe and appropriate for continued out patient treatment. Pt. advised of the risk benefit ratio of medication, possible side effects and interactions of the meditations. Pt. wishes to continue with the treatment plan. Pt. advised to call or come in sooner than the scheduled appt. 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 operator every 1-2 years HIV testing recommendation condoms prn contraceptive options-pt has IUD new guidelines--pap with Hpv in 3-5 years--pelvic exam every year Mammogram yearly Check B/P once yearly yarauz Not available 05/02/2024 12:00:35 05/15/2024 [id number] fibromialgia: instrucciones de cuidado - [fibromyalgia: care instructions] yarauz Not available 05/15/2024 15:14:38 back stretches: exercises yarauz Not available 05/15/2024 15:14:38 parte superior d e la espalda saludable: ejercicios - [healthy upper back: exercises] yarauz Not available 05/15/2024 15:14:38 dolor en la part e baja de la espalda (lumbalgia): ejercicios - [low back pain: exercises] yarauz Not available 05/15/2024 15:14:38 dolor de ernesto: instrucciones de cuidado - [neck pain: care instructions] yarauz Not available 05/15/2024 15:14:38 A healthy lifestyle: care instructions yarauz Not available 05/15/2024 15:14:38 aprenda acerca d el peso saludable - [learning about healthy weight] yarauz Not available 05/15/2024 15:14:38 aura de migra a sin dolor de hero: instrucciones de cuidado - [migraine aura without a headache: care instructions] yarauz Not available 05/15/2024 15:14:38 Keep a headache diary to see if you can determine what are your headache/migraine triggers Take medicine as directed for migraine prophylaxis Take breakthrough headache medicine as soon as you feel headache coming on Lay in a dark room if possible and try to relax Drink plenty of water, get appropriate rest, try auto relaxation, avoid triggers if known if worsening symptoms seek immediate re-eval Keep a food diary Follow a healthy heart low fat low cholesterol diet exercise 50-60 minutes 5-6 times per week Increase water intake Stop concentrated sugars Benefits risks of psychotropic medications if you develop suicidal thoughts or behaviors seek immediate reevaluation avoid alcohol when taking psychotropic medications if you develop fevers, chills, diarrhea, muscle symptoms or seizures to seek immediate reevaluation take your medicine as directed Pt. advised to call 911 or go to a local Emergency Department with any SI or HI, thoughts of self harm or any psychiatric emergency. Pt. is deemed safe and appropriate for continued out patient treatment. Pt. advised of the risk benefit ratio of medication, possible side effects and interactions of the meditations. Pt. wishes to continue with the treatment plan. Pt. advised to call or come in sooner than the scheduled appt. if there are any worsening of symptoms or problems with the medication yazhanna Not available 05/15/2024 15:11:48 05/30/2024 [id number] Start the Famotidine as ordered If you develop any worsening pain/ vomiting/ fevers or any other concerns return to the ER. Follow up with your PCP in 1 week. Not available 05/30/2024 13:09:11 Reason for Referral None Reported. Results Created Date Observation Date Name Description Value Unit Range Abnormal Flag Note LastModifiedBy Organization Detail LastModifiedTime 02/01/2002/01/2024 rapid flu (A+B) Flu A negati ve Not Available In-Office Order Internal Use Only DO Not Attach Compendium DO Not Attach Compendium, Do Not Delete/merge, [id number] 02/01/2024 11:07:50 02/01/20 24 02/01/2024 rapid flu (A+B) Flu B negati ve Not Available In-Office Order Internal Use Only DO Not Attach Compendium DO Not Attach Compendium, Do Not Delete/merge, [id number] 02/01/2024 11:07:50 02/01/20 24 02/01/2024 rapid SARS CoV 2 Ag, QL IA, respi rator y speci men rapid SARS CoV 2 Ag, QL IA, respiratory specimen negati ve Not Available In-Office Order Internal Use Only DO Not Attach Compendium DO Not Attach Compendium, Do Not Delete/merge, [id number] 02/01/2024 11:07:39 02/08/20 24 02/08/2024 HbA1c (hemo globi n A1c), blood HbA1c 5.5 Not Available In-Office Order Internal Use Only DO Not Attach Compendium DO Not Attach Compendium, Do Not Delete/merge, [id number] 02/08/2024 14:11:52 02/08/20 24 02/08/2024 gluco se, finge rstic k, blood Blood Glucose: mg/dl 130 Not Available In-Off ice Order Internal Use Only DO Not Attach Compendium DO Not Attach Compendium, Do Not Delete/merge, 02/08/2024 14:11:52 05/02/20 24 05/02/2024 IGP,A PTIMA HPV,A GE GDLN age gdln acog testing 21-29 Not Available [facility] ([facility]) [address] [place], [address], 05/12/2024 12:12:08 05/02/20 24 05/12/2024 IGP, RFX APTIM A HPV ASCU diagnosis: Commen t NAGA COLEE FOR INTRA EPITH ELIAL TRES Ma OR ALISHA CHENG . Not Available [facility] ([facility]) [address], [place], [address], 05/12/2024 12:12:09 05/02/20 24 05/12/2024 IGP, RFX APTIM A HPV ASCU specimen adequacy: Commen t Satis facto ry for evalu ation . Endoc ervic al and/o r squam ous metap lasti c cells (endo cervi henry compo nent) are prese nt. Not Available [facility] ([facility]) [address] [place], [address], 05/12/2024 12:12:09 05/02/20 24 05/12/2024 IGP, RFX APTIM A HPV ASCU clinician provided ICD10: Commen t Z01.4 19 Not Available [facility] ([facility]) [address] [place], [address], 05/12/2024 12:12:09 05/02/20 24 05/12/2024 IGP, RFX APTIM A HPV ASCU performed by: Sandra moon Cytot lyric dougherty (ASCP ) Not Available [facility] ([facility]) [address] [place], [address], 05/12/2024 12:12:09 05/02/20 24 05/12/2024 IGP, RFX APTIM A HPV ASCU . . Not Available [facility] ([facility]) [address], [place], [address], 05/12/2024 12:12:09 05/02/20 24 05/12/2024 IGP, RFX APTIM A HPV ASCU note: Sandra dougherty The Pap smear is a scree janelle test desajay serafin to aid in the detec tion of hina ligna nt and malig nant condi tions of the uteri ne cervi x. It is not a diagn ostic proce dure and shoul d not be used as the sole means of detec ting cervi henry cance r. Both false -posi tive and false -nega tive repor ts do occur . Not Available [facility] ([facility]) [address], [place], [address], 05/12/2024 12:12:09 05/02/20 24 05/12/2024 IGP, RFX APTIM A HPV ASCU test methodology: Sandra dougherty This liqui d based ThinP rep(R ) pap test was scree serafin with the use of an image guide phillip sun Not Available [facility] ([facility]) [address], [place], [address], 05/12/2024 12:12:09 05/02/20 24 05/12/2024 IGP, RFX APTIM A HPV ASCU . Commen t The HPV DNA refle x crite ashok were not met with this speci men resul t there fore, no HPV testi ng was perfo rmed. Not Available [facility] ([facility]) [address], [place], [address], 05/12/2024 12:12:09 05/15/19 25 05/15/2024 HbA1c (hemo globi n A1c), blood HbA1c 5.7 Not Available In-Office Order Internal Use Only DO Not Attach Compendium DO Not Attach Compendium, Do Not Delete/merge, 05/15/2024 15:14:16 05/15/19 25 05/15/2024 gluco se, finge rstic k, blood Blood Glucose: mg/dl 112 Not Available In-Off ice Order Internal Use Only DO Not Attach Compendium DO Not Attach Compendium, Do Not Delete/merge, 05/15/2024 15:14:17 05/30/19 25 05/30/2024 pregn karmen test, urine HCG negati ve Not Available In-Office Order Internal Use Only DO Not Attach Compendium DO Not Attach Compendium, Do Not Delete/merge, 05/30/2024 13:04:55 05/30/19 25 05/30/2024 urina lysis , dipst ick Leukocytes Negati ve Not Available In-Office Order Internal Use Only DO Not Attach Compendium DO Not Attach Compendium, Do Not Delete/merge, 05/30/2024 13:04:49 05/30/19 25 05/30/2024 urina lysis , dipst ick Nitrite negati ve Not Available In-Office Order Internal Use Only DO Not Attach Compendium DO Not Attach Compendium, Do Not Delete/merge, 05/30/2024 13:04:49 05/30/19 25 05/30/2024 urina lysis , dipst ick Urobilinogen .2 Not Available In-Of fice Order Internal Use Only DO Not Attach Compendium DO Not Attach Compendium, Do Not Delete/merge, 05/30/2024 13:04:49 05/30/19 25 05/30/2024 urina lysis , dipst ick Protein 30 Not Available In-Office Order Internal Use Only DO Not Attach Compendium DO Not Attach Compendium, Do Not Delete/merge, 05/30/2024 13:04:49 05/30/19 25 05/30/2024 urina lysis , dipst ick pH 7.0 Not Available In-Office Order Internal Use Only DO Not Attach Compendium DO Not Attach Compendium, Do Not Delete/merge, 05/30/2024 13:04:49 05/30/19 25 05/30/2024 urina lysis , dipst ick Blood Non-He molyze d: Trace Not Available In-Office Order Internal Use Only DO Not Attach Compendium DO Not Attach Compendium, Do Not Delete/merge, 05/30/2024 13:04:49 05/30/19 25 05/30/2024 urina lysis , dipst ick Specific [place] 1.025 Not Available In-Off ice Order Internal Use Only DO Not Attach Compendium DO Not Attach Compendium, Do Not Delete/merge, 05/30/2024 13:04:49 05/30/19 25 05/30/2024 urina lysis , dipst ick Ketone Negati ve Not Available In-Office Order Internal Use Only DO Not Attach Compendium DO Not Attach Compendium, Do Not Delete/merge, 05/30/2024 13:04:49 05/30/1905/30/2024 urina lysis , dipst ick Bilirubin Negati ve Not Available In-Office Order Internal Use Only DO Not Attach Compendium DO Not Attach Compendium, Do Not Delete/merge, 05/30/2024 13:04:49 05/30/19 25 05/30/2024 urina lysis , dipst ick Glucose Negati ve Not Available In-Office Order Internal Use Only DO Not Attach Compendium DO Not Attach Compendium, Do Not Delete/merge, 05/30/2024 13:04:49 05/30/19 25 05/30/2024 urina lysis , dipst ick Appearance Slight ly Cloudy Not Available In-Office Order Internal Use Only DO Not Attach Compendium DO Not Attach Compendium, Do Not Delete/merge, [id number] 05/30/2024 13:04:49 05/30/1905/30/2024 urina lysis , dipst ick Color Yellow Not Available In-Office Order Internal Use Only DO Not Attach Compendium DO Not Attach Compendium, Do Not Delete/merge, [id number] 05/30/2024 13:04:49 06/01/19 25 06/01/2024 Urina lysis compl ete panel - Urine collection method - specimen URINE CLEAN CATCH SPECI MEN TYPE URINE CLEAN CATCH 06/01 1:15 AM 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 [facility] Not Available Not Available 06/26/2024 11:58:14 06/01/1906/01/2024 Urina lysis compl ete panel - Urine color of urine YELLOW COLOR (U) YELLO W 06/01 1:31 AM 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 [facility] Not Available Not Available 06/26/2024 11:58:14 06/01/19 25 06/01/2024 Urina lysis compl ete panel - Urine clarity of urine CLEAR TRANS PAREN CY CLEAR 06/01 1:31 AM 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 [facility] Not Available Not Available 06/26/2024 11:58:14 06/01/19 25 06/01/2024 Urina lysis compl ete panel - Urine specific gravity of urine 1.029 low: 1.001h igh: 1.03 SPECI FIC GRAVI TY (U) 1.029 1.001 - 1.030 06/01 1:31 AM 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 [facility] Not Available Not Available 06/26/2024 11:58:14 06/01/19 25 06/01/2024 Urina lysis compl ete panel - Urine pH of urine 6.5 low: 5high: 9 U PH 6.5 5.0 - 9.0 06/01 1:31 AM 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 [facility] Not Available Not Available 06/26/2024 11:58:14 06/01/19 25 06/01/2024 Urina lysis compl ete panel - Urine leukocytes [#/volume] in urine by test strip 25 text: negati ve abnormal LEUKO CYTES (U) 25 (A) NEGAT SOFIA 06/01 1:31 AM [facility] Not Available Not Available 06/26/2024 11:58:14 06/01/19 25 06/01/2024 Urina lysis compl ete panel - Urine nitrite [presence] in urine NEGATI VE text: negati ve NITRI VASU NEGAT SOFIA NEGAT SOFIA 06/01 1:31 AM [facility] Not Available Not Available 06/26/2024 11:58:14 06/01/19 25 06/01/2024 Urina lysis compl ete panel - Urine protein [mass/volume ] in urine by test strip 20 text: <30 mg/dL PROTE IN RANDO M (U) 20 <30 MG/DL 06/01 1:31 AM [facility] Not Available Not Available 06/26/2024 11:58:14 06/01/19 25 06/01/2024 Urina lysis compl ete panel - Urine glucose [mass/volume ] in urine NORMAL text: normal mg/dL GLUCO SE (U) CYNTHIA L CYNTHIA L MG/DL 06/01 1:31 AM [facility] Not Available Not Available 06/26/2024 11:58:14 06/01/19 25 06/01/2024 Urina lysis compl ete panel - Urine ketones [mass/volume ] in urine by test strip NEGATI VE text: negati ve mg/dL KETON ES MG/DL (U) NEGAT SOFIA NEGAT SOFIA MG/DL 06/01 1:31 AM [facility] Not Available Not Available 06/26/2024 11:58:14 06/01/19 25 06/01/2024 Urina lysis compl ete panel - Urine urobilinogen [units/volum e] in urine by test strip 2 text: normal mg/dL abnormal UROBI LINOG EN 2.0 (A) CYNTHIA L MG/DL 06/01 1:31 AM [facility] Not Available Not Available 06/26/2024 11:58:14 06/01/19 25 06/01/2024 Urina lysis compl ete panel - Urine bilirubin.to french [mass/volume ] in urine NEGATI VE text: negati ve mg/dL BILIR UBIN (U) NEGAT SOFIA NEGAT SOFIA MG/DL 06/01 1:31 AM [facility] Not Available Not Available 06/26/2024 11:58:14 06/01/19 25 06/01/2024 Urina lysis compl ete panel - Urine erythrocytes [#/volume] in urine by automated test strip NEGATI VE text: negati ve BLOOD (U) NEGAT SOFIA NEGAT SOFIA 06/01 1:31 AM [facility] Not Available Not Available 06/26/2024 11:58:14 06/01/19 25 06/01/2024 Urina lysis compl ete panel - Urine mucus [#/area] in urine sediment by microscopy low power field MANY text: /lpf MUCUS MANY /LPF 06/01 1:31 AM [facility] Not Available Not Available 06/26/2024 11:58:14 06/01/19 25 06/01/2024 Urina lysis compl ete panel - Urine leukocytes [#/area] in urine sediment by microscopy high power field 5 text: <6 /hpf WBC/H PF 5 <6 /HPF 06/01 1:31 AM [facility] Not Available Not Available 06/26/2024 11:58:14 06/01/19 25 06/01/2024 Urina lysis compl ete panel - Urine erythrocytes [#/area] in urine sediment by microscopy high power field 3 text: <6 /hpf RBC/H PF 3 <6 /HPF 06/01 1:31 AM [facility] Not Available Not Available 06/26/2024 11:58:14 06/01/19 25 06/01/2024 Urina lysis compl ete panel - Urine bacteria [#/area] in urine sediment by microscopy high power field FEW text: none /hpf abnormal BACTE ASHOK (U) FEW (A) NONE /HPF 06/01 1:31 AM [facility] Not Available Not Available 06/26/2024 11:58:14 06/01/19 25 06/01/2024 Urina lysis compl ete panel - Urine epithelial cells.squamo us [#/area] in urine sediment by microscopy high power field MODERA TE text: /hpf SQUAM OUS EPITH ELIAL S MODER ATE /HPF 06/01 1:31 AM [facility] Not Available Not Available 06/26/2024 11:58:14 06/01/19 25 06/01/2024 Urina lysis compl ete panel - Urine interpretati on and review of laboratory results Abnorm al Not Available Not Available 11:58:14 06/01/19 25 06/01/2024 Compr ehens sofia metab olic 1999 panel - Serum or Plasm a glucose [mass/volume ] in serum or plasma 101 text: 70 - 99 mg/dL high GLUCO SE 101 (H) 70 - 99 MG/DL 06/01 2:17 AM [facility] [facility] Not Available Not Available 06/26/2024 11:58:14 06/01/19 25 06/01/2024 Compr ehens sofia metab olic 1999 panel - Serum or Plasm a urea nitrogen [mass/volume ] in serum or plasma 12 text: 7 - 18 mg/dL BUN 12 7 - 18 MG/DL 06/01 2:17 AM [facility] Not Available Not Available 06/26/2024 11:58:14 06/01/19 25 06/01/2024 Compr ehens sofia metab olic 2000 panel - Serum or Plasm a creatinine [mass/volume ] in serum or plasma 0.69 text: 0.55 - 1.02 mg/dL CREAT ININE S/P/B 0.69 0.55 - 1.02 MG/DL 06/01 2:17 AM [facility] Not Available Not Available 06/26/2024 11:58:14 06/01/19 25 06/01/2024 Compr ehens sofia metab olic 2000 panel - Serum or Plasm a sodium [moles/volum e] in serum or plasma 138 text: 136 - 145 mmol/L SODIU M S/P/B 138 136 - 145 MMOL/ L 06/01 2:17 AM [facility] Not Available Not Available 06/26/2024 11:58:14 06/01/19 25 06/01/2024 Compr ehens sfoia metab olic 2000 panel - Serum or Plasm a potassium [moles/volum e] in serum or plasma 3.7 text: 3.5 - 5.1 mmol/L POTAS SIUM S/P/B 3.7 3.5 - 5.1 MMOL/ L 06/01 2:17 AM [facility] Not Available Not Available 06/26/2024 11:58:14 06/01/19 25 06/01/2024 Compr ehens sofia metab olic 2000 panel - Serum or Plasm a chloride [moles/volum e] in serum or plasma 105 text: 97 - 115 mmol/L CHLOR LEISA S/P/B 105 97 - 115 MMOL/ L 06/01 2:17 AM [facility] Not Available Not Available 06/26/2024 11:58:14 06/01/19 25 06/01/2024 Compr ehens sofia metab olic 2000 panel - Serum or Plasm a carbon dioxide, total [moles/volum e] in serum or plasma 25.6 text: 21 - 32 mmol/L CO2 25.6 21 - 32 MMOL/ L 06/01 2:17 AM [facility] Not Available Not Available 06/26/2024 11:58:14 06/01/19 25 06/01/2024 Compr ehens sofia metab olic 1999 panel - Serum or Plasm a calcium [mass/volume ] in serum or plasma 9.1 text: 8.5 - 10.1 mg/dL CALCI UM S/P/B 9.1 8.5 - 10.1 MG/DL 06/01 2:17 AM [facility] Not Available Not Available 06/26/2024 11:58:14 06/01/19 25 06/01/2024 Compr ehens sofia metab olic 2000 panel - Serum or Plasm a bilirubin.to french [mass/volume ] in serum or plasma 0.5 text: 0.2 - 1.2 mg/dL BILIR UBIN TOTAL S/P/B 0.5 0.2 - 1.2 MG/DL 06/01 2:17 AM [facility] Not Available Not Available 06/26/2024 11:58:14 06/01/19 25 06/01/2024 Compr ehens sofia metab olic 2000 panel - Serum or Plasm a protein [mass/volume ] in serum or plasma 7.6 text: 6.4 - 8.2 g/dL TOTAL PROTE IN S/P/B 7.6 6.4 - 8.2 G/DL 06/01 2:52 AM [facility] Not Available Not Available 06/26/2024 11:58:14 06/01/19 25 06/01/2024 Compr ehens sofia metab olic 2000 panel - Serum or Plasm a albumin [mass/volume ] in serum or plasma 3.7 text: 3.4 - 5.0 g/dL ALBUM IN S/P/B 3.7 3.4 - 5.0 G/DL 06/01 2:17 AM [facility] Not Available Not Available 06/26/2024 11:58:14 06/01/19 25 06/01/2024 Compr ehens sofia metab olic 2000 panel - Serum or Plasm a aspartate aminotransfe rase [enzymatic activity/vol ume] in serum or plasma 20 U/L low: 15U/Lh igh: 37U/L AST 20 15 - 37 U/L 06/01 2:17 AM [facility] Not Available Not Available 06/26/2024 11:58:14 06/01/19 25 06/01/2024 Compr ehens sofia metab olic 2000 panel - Serum or Plasm a alanine aminotransfe rase [enzymatic activity/vol ume] in serum or plasma 10 U/L low: 14U/Lh igh: 55U/L low ALT 10 (L) 14 - 55 U/L 06/01 2:17 AM [facility] Not Available Not Available 06/26/2024 11:58:14 06/01/19 25 06/01/2024 Compr ehens sofia metab olic 2000 panel - Serum or Plasm a alkaline phosphatase [enzymatic activity/vol ume] in serum or plasma 88 U/L low: 50U/Lh igh: 136U/L ALKAL INE PHOSP HATAS E S/P/B 88 50 - 136 U/L 06/01 2:17 AM [facility] Not Available Not Available 06/26/2024 11:58:14 06/01/19 25 06/01/2024 Compr ehens sofia metab olic 2000 panel - Serum or Plasm a anion gap in serum or plasma 7.4 text: 2 - 10 mmol/L ANION GAP 7.4 2 - 10 MMOL/ L 06/01 2:17 AM [facility] Not Available Not Available 06/26/2024 11:58:14 06/01/19 25 06/01/2024 Compr ehens sofia metab olic 2000 panel - Serum or Plasm a urea nitrogen/cre atinine [mass ratio] in serum or plasma 17.4 low: 6high: 26 BUN CREAT ININE RATIO 17.4 6 - 26 06/01 2:17 AM [facility] Not Available Not Available 06/26/2024 11:58:14 06/01/19 25 06/01/2024 Compr ehens sofia metab olic 1999 panel - Serum or Plasm a albumin/glob ulin [mass ratio] in serum or plasma 0.9 text: 1.0 - 2.0 ratio low A/G RATIO 0.9 (L) 1.0 - 2.0 RATIO 06/01 2:52 AM [facility] Not Available Not Available 06/26/2024 11:58:14 06/01/19 25 06/01/2024 Compr ehens sofia metab olic 2000 panel - Serum or Plasm a glomerular filtration rate/1.73 sq M.predicted [volume rate/area] in serum, plasma or blood by creatinine-b ased formula (CKD-epi 2020) text: >90 mL/min /1.73 M2 GFR ESTIM ATE >90 >90 ML/KY N/1.7 3 M2 06/01 2:17 AM [facility] Not Available Not Available 06/26/2024 11:58:14 06/01/19 25 06/01/2024 Compr ehens sofia metab olic 2000 panel - Serum or Plasm a interpretati on and review of laboratory results Abnorm al Not Available Not Available 11:58:14 06/01/19 25 06/01/2024 CBC W Auto Diffe renti al panel - Blood leukocytes [#/volume] in blood by automated count 14.37 text: 4.5 - 11.0 x10'3/ uL high WBC 14.37 (H) 4.5 - 11.0 x10'3 /uL 06/01 12:29 AM [facility] Not Available Not Available 06/26/2024 11:58:14 06/01/19 25 06/01/2024 CBC W Auto Diffe renti al panel - Blood erythrocytes [#/volume] in blood by automated count 4.19 text: 4.20 - 5.40 x10'6/ uL low RBC 4.19 (L) 4.20 - 5.40 x10'6 /uL 06/01 12:29 AM 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 [facility] Not Available Not Available 06/26/2024 11:58:14 06/01/19 25 06/01/2024 CBC W Auto Diffe renti al panel - Blood hemoglobin [mass/volume ] in blood 13 text: 12.0 - 16.0 g/dL HGB 13.0 12.0 - 16.0 G/DL 06/01 12:29 AM 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 [facility] Not Available Not Available 06/26/2024 11:58:14 06/01/19 25 06/01/2024 CBC W Auto Diffe renti al panel - Blood hematocrit [volume fraction] of blood 38.5 % low: 38%hig h: 48% HCT 38.5 38.0 - 48.0 % 06/01 12:29 AM [facility] Not Available Not Available 06/26/2024 11:58:14 06/01/19 25 06/01/2024 CBC W Auto Diffe renti al panel - Blood MCV [entitic volume] 91.9 text: 81.0 - 99.0 fL MCV 91.9 81.0 - 99.0 FL 06/01 12:29 AM 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 [facility] Not Available Not Available 06/26/2024 11:58:14 06/01/19 25 06/01/2024 CBC W Auto Diffe renti al panel - Blood MCH [entitic mass] 31 pg low: 27pghi gh: 31pg MCH 31.0 27.0 - 31.0 PG 06/01 12:29 AM 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 [facility] Not Available Not Available 06/26/2024 11:58:14 06/01/19 25 06/01/2024 CBC W Auto Diffe renti al panel - Blood MCHC [mass/volume ] 33.8 text: 32.0 - 36.0 g/dL MCHC 33.8 32.0 - 36.0 G/DL 06/01 12:29 AM [facility] Not Available Not Available 06/26/2024 11:58:14 06/01/19 25 06/01/2024 CBC W Auto Diffe renti al panel - Blood erythrocyte distribution width [entitic volume] by automated count 13.1 % low: 11.5%h igh: 14.5% RDW 13.1 11.5 - 14.5 % 06/01 12:29 AM [facility] Not Available Not Available 06/26/2024 11:58:14 06/01/19 25 06/01/2024 CBC W Auto Diffe renti al panel - Blood platelets [#/volume] in blood 333 text: 130 - 400 x10'3/ uL PLT 333 130 - 400 x10'3 /uL 06/01 12:29 AM [facility] Not Available Not Available 06/26/2024 11:58:14 06/01/19 25 06/01/2024 CBC W Auto Diffe renti al panel - Blood platelet mean volume [entitic volume] in blood 9.9 text: 9.3 - 12.2 fL MPV 9.9 9.3 - 12.2 FL 06/01 12:29 AM [facility] Not Available Not Available 06/26/2024 11:58:14 06/01/19 25 06/01/2024 CBC W Auto Diffe renti al panel - Blood differential cell count method - blood AUTOMA KASHIF DIFFER ENTIAL DIFFE RENTI AL TYPE AUTOM ATED DIFFE RENTI AL 06/01 12:29 AM [facility] Not Available Not Available 06/26/2024 11:58:14 06/01/19 25 06/01/2024 CBC W Auto Diffe renti al panel - Blood neutrophils/ 100 leukocytes in blood by automated count 60.9 % NEUTR OPHIL S % 60.9 % 06/01 12:29 AM [facility] Not Available Not Available 06/26/2024 11:58:14 06/01/19 25 06/01/2024 CBC W Auto Diffe renti al panel - Blood lymphocytes/ 100 leukocytes in blood by automated count 30.1 % LYMPH OCYTE S % 30.1 % 06/01 12:29 AM [facility] Not Available Not Available 06/26/2024 11:58:14 06/01/19 25 06/01/2024 CBC W Auto Diffe renti al panel - Blood monocytes/10 0 leukocytes in blood by automated count 7.2 % MONOC YTES % 7.2 % 06/01 12:29 AM [facility] Not Available Not Available 06/26/2024 11:58:14 06/01/19 25 06/01/2024 CBC W Auto Diffe renti al panel - Blood eosinophils/ 100 leukocytes in blood by automated count 0.7 % EOSIN OPHIL S 0.7 % 06/01 12:29 AM [facility] Not Available Not Available 06/26/2024 11:58:14 06/01/19 25 06/01/2024 CBC W Auto Diffe renti al panel - Blood basophils/10 0 leukocytes in blood by automated count 0.5 % BASOP HILS 0.5 % 06/01 12:29 AM [facility] Not Available Not Available 06/26/2024 11:58:14 06/01/19 25 06/01/2024 CBC W Auto Diffe renti al panel - Blood immature granulocytes /100 leukocytes in blood by automated count 0.6 % IMMAT URE GRANS % 0.6 % 06/01 12:29 AM [facility] Not Available Not Available 06/26/2024 11:58:14 06/01/19 25 06/01/2024 CBC W Auto Diffe renti al panel - Blood neutrophils [#/volume] in blood 8.76 text: 1.80 - 7.70 x10'3/ uL high ABS. NEUTR OPHIL S 8.76 (H) 1.80 - 7.70 x10'3 /uL 06/01 12:29 AM [facility] Not Available Not Available 06/26/2024 11:58:14 06/01/19 25 06/01/2024 CBC W Auto Diffe renti al panel - Blood lymphocytes [#/volume] in blood 4.33 text: 1.00 - 4.80 x10'3/ uL ABS. LYMPH OCYTE S 4.33 1.00 - 4.80 x10'3 /uL 06/01 12:29 AM 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 [facility] Not Available Not Available 06/26/2024 11:58:14 06/01/19 25 06/01/2024 CBC W Auto Diffe renti al panel - Blood monocytes [#/volume] in blood 1.03 text: 0.24 - 0.86 x10'3/ uL high ABS. MONOC YTES 1.03 (H) 0.24 - 0.86 x10'3 /uL 06/01 12:29 AM [facility] Not Available Not Available 06/26/2024 11:58:14 06/01/19 25 06/01/2024 CBC W Auto Diffe renti al panel - Blood eosinophils [#/volume] in blood 0.1 text: 0.04 - 0.36 x10'3/ uL ABS. EOSIN OPHIL S 0.10 0.04 - 0.36 x10'3 /uL 06/01 12:29 AM [facility] Not Available Not Available 06/26/2024 11:58:14 06/01/19 25 06/01/2024 CBC W Auto Diffe renti al panel - Blood basophils [#/volume] in blood 0.07 text: 0.01 - 0.08 x10'3/ uL ABS. BASOP HILS 0.07 0.01 - 0.08 x10'3 /uL 06/01 12:29 AM [facility] Not Available Not Available 06/26/2024 11:58:14 06/01/19 25 06/01/2024 CBC W Auto Diffe renti al panel - Blood immature granulocytes [#/volume] in blood 0.08 text: 0.00 - 0.49 x10'3/ uL ABS. IMMAT URE GRANU LOCYT ES 0.08 0.00 - 0.49 x10'3 /uL 06/01 12:29 AM [facility] Not Available Not Available 06/26/2024 11:58:14 06/01/19 25 06/01/2024 CBC W Auto Diffe renti al panel - Blood interpretati on and review of laboratory results Abnorm al Not Available Not Available 11:58:14 06/01/19 25 06/01/2024 Lipas e [Enzy matic activ ity/v olume ] in Serum or Plasm a lipase [enzymatic activity/vol ume] in serum or plasma 43 text: 13 - 75 units/ L LIPAS E 43 13 - 75 UNITS /L 06/01 2:17 AM 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 [facility] Not Available Not Available 06/26/2024 11:58:13 06/02/19 25 06/02/2024 CBC W Auto Diffe renti al panel - Blood leukocytes [#/volume] in blood 11.7 K/uL low: 4K/uLh igh: 9.8K/u L high WBC 11.7 (H) 4.0 - 9.8 K/uL 06/02 2:43 AM 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 [facility] Not Available Not Available 06/26/2024 11:58:17 06/02/19 25 06/02/2024 CBC W Auto Diffe renti al panel - Blood RBC 3.94 text: 3.90 - 4.90 M/uL RBC 3.94 3.90 - 4.90 M/uL 06/02 2:43 AM 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 [facility] Not Available Not Available 06/26/2024 11:58:17 06/02/19 25 06/02/2024 CBC W Auto Diffe renti al panel - Blood hemoglobin 12.4 g/dL low: 11.8g/ dLhigh : 14.8g/ dL HEMOG LOBIN 12.4 11.8 - 14.8 g/dL 06/02 2:43 AM 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 [facility] Not Available Not Available 06/26/2024 11:58:17 06/02/19 25 06/02/2024 CBC W Auto Diffe renti al panel - Blood hematocrit [volume fraction] of blood by automated count 37.5 % low: 35.5%h igh: 44% HEMAT OCRIT 37.5 35.5 - 44.0 % 06/02 2:43 AM [facility] Not Available Not Available 06/26/2024 11:58:17 06/02/19 25 06/02/2024 CBC W Auto Diffe renti al panel - Blood MCV 95.2 fL low: 82fLhi gh: 99fL MCV 95.2 82.0 - 99.0 fL 06/02 2:43 AM [facility] Not Available Not Available 06/26/2024 11:58:17 06/02/19 25 06/02/2024 CBC W Auto Diffe renti al panel - Blood MCH 31.5 pg low: 27.2pg high: 32.6pg MCH 31.5 27.2 - 32.6 pg 06/02 2:43 AM [facility] Not Available Not Available 06/26/2024 11:58:17 06/02/19 25 06/02/2024 CBC W Auto Diffe renti al panel - Blood MCHC 33.1 g/dL low: 31.5g/ dLhigh : 35.5g/ dL MCHC 33.1 31.5 - 35.5 g/dL 06/02 2:43 AM [facility] Not Available Not Available 06/26/2024 11:58:17 06/02/19 25 06/02/2024 CBC W Auto Diffe renti al panel - Blood RDW 13.1 % low: 11.5%h igh: 14.5% RDW 13.1 11.5 - 14.5 % 06/02 2:43 AM [facility] Not Available Not Available 06/26/2024 11:58:17 06/02/19 25 06/02/2024 CBC W Auto Diffe renti al panel - Blood RDW-stdev 46 fL low: 37.1fL high: 48.7fL RDW-S TDEV 46.0 37.1 - 48.7 fL 06/02 2:43 AM [employer] [facility] Not Available Not Available 06/26/2024 11:58:17 06/02/19 25 06/02/2024 CBC W Auto Diffe renti al panel - Blood platelets [#/volume] in blood by automated count 275 K/uL low: 140K/u Lhigh: 350K/u L PLATE LETS 275 140 - 350 K/uL 06/02 2:43 AM [employer] [facility] Not Available Not Available 06/26/2024 11:58:17 06/02/19 25 06/02/2024 CBC W Auto Diffe renti al panel - Blood MPV 10 fL low: 9.3fLh igh: 12.4fL MPV 10.0 9.3 - 12.4 fL 06/02 2:43 AM [employer] Not Available Not Available 06/26/2024 11:58:17 06/02/19 25 06/02/2024 CBC W Auto Diffe renti al panel - Blood neutrophils 65 % NEUTR OPHIL S 65 % 06/02 2:43 AM [facility] Not Available Not Available 06/26/2024 11:58:17 06/02/19 25 06/02/2024 CBC W Auto Diffe renti al panel - Blood lymphocytes/ 100 leukocytes in blood by automated count 25 % LYMPH OCYTE S 25 % 06/02 2:43 AM [employer] [facility] Not Available Not Available 06/26/2024 11:58:17 06/02/19 25 06/02/2024 CBC W Auto Diffe renti al panel - Blood monocytes 9 % MONOC YTES 9 % 06/02 2:43 AM [employer] [facility] Not Available Not Available 06/26/2024 11:58:17 06/02/19 25 06/02/2024 CBC W Auto Diffe renti al panel - Blood eosinophils 1 % EOSIN OPHIL S 1 % 06/02 2:43 AM [facility] Not Available Not Available 06/26/2024 11:58:17 06/02/19 25 06/02/2024 CBC W Auto Diffe renti al panel - Blood basophils 0 % BASOP HILS 0 % 06/02 2:43 AM [facility] Not Available Not Available 06/26/2024 11:58:17 06/02/19 25 06/02/2024 CBC W Auto Diffe renti al panel - Blood immature granulocytes 0 % IMMAT URE GRANU LOCYT ES 0 % 06/02 2:43 AM [facility] Not Available Not Available 06/26/2024 11:58:17 06/02/19 25 06/02/2024 CBC W Auto Diffe renti al panel - Blood neutrophils [#/volume] in blood by automated count 7.58 K/uL low: 1.9K/u Lhigh: 7K/uL high NEUTR OPHIL ABSOL ANGOON 7.58 (H) 1.90 - 7.00 K/uL 06/02 2:43 AM [facility] Not Available Not Available 06/26/2024 11:58:17 06/02/19 25 06/02/2024 CBC W Auto Diffe renti al panel - Blood lymphocyte absolute 2.91 K/uL low: 0.7K/u Lhigh: 4.5K/u L LYMPH OCYTE ABSOL ANGOON 2.91 0.70 - 4.50 K/uL 06/02 2:43 AM [facility] Not Available Not Available 06/26/2024 11:58:17 06/02/19 25 06/02/2024 CBC W Auto Diffe renti al panel - Blood monocyte absolute 1 K/uL low: 0.1K/u Lhigh: 1.3K/u L MONOC YTE ABSOL ANGOON 1.00 0.10 - 1.30 K/uL 06/02 2:43 AM [facility] Not Available Not Available 06/26/2024 11:58:17 06/02/19 25 06/02/2024 CBC W Auto Diffe renti al panel - Blood eosinophil absolute 0.14 K/uL low: 0K/uLh igh: 0.7K/u L EOSIN OPHIL ABSOL ANGOON 0.14 0.00 - 0.70 K/uL 06/02 2:43 AM [facility] [employer] [facility] Not Available Not Available 06/26/2024 11:58:17 06/02/19 25 06/02/2024 CBC W Auto Diffe renti al panel - Blood basophils absolute 0.03 K/uL low: 0K/uLh igh: 0.2K/u L BASOP HILS ABSOL ANGOON 0.03 0.00 - 0.20 K/uL 06/02 2:43 AM [facility] [employer] [facility] Not Available Not Available 06/26/2024 11:58:17 06/02/19 25 06/02/2024 CBC W Auto Diffe renti al panel - Blood immature granulocytes absolute 0.04 K/uL low: 0K/uLh igh: 0.03K/ uL high IMMAT URE GRANU LOCYT ES ABSOL ANGOON 0.04 (H) 0.00 - 0.03 K/uL 06/02 2:43 AM [facility] [employer] [facility] Not Available Not Available 06/26/2024 11:58:17 06/02/19 25 06/02/2024 CBC W Auto Diffe renti al panel - Blood interpretati on and review of laboratory results Abnorm al Not Available Not Available 11:58:17 06/02/19 25 06/02/2024 Compr ehens sofia metab olic 2000 panel - Serum or Plasm a sodium [moles/volum e] in serum or plasma 136 mmol/ L low: 136mmo l/Lhig h: 145mmo l/L SODIU M 136 136 - 145 mmol/ L 06/02 3:15 AM [facility] [employer] Not Available Not Available 06/26/2024 11:58:17 06/02/19 25 06/02/2024 Compr ehens sofia metab olic 1999 panel - Serum or Plasm a potassium [moles/volum e] in serum or plasma 3.7 mmol/ L low: 3.5mmo l/Lhig h: 5mmol/ L POTAS SIUM 3.7 3.5 - 5.0 mmol/ L 06/02 3:15 AM 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 Not Available Not Available 06/26/2024 11:58:17 06/02/19 25 06/02/2024 Compr ehens sofia metab olic 1999 panel - Serum or Plasm a chloride 102 mmol/ L low: 98mmol /Lhigh : 107mmo l/L CHLOR LEISA 102 98 - 107 mmol/ L 06/02 3:15 AM [facility] [employer] Not Available Not Available 06/26/2024 11:58:17 06/02/19 25 06/02/2024 Compr ehens sofia metab olic 1999 panel - Serum or Plasm a carbon dioxide, total [moles/volum e] in serum or plasma 25 mmol/ L low: 22mmol /Lhigh : 29mmol /L CO2 25 22 - 29 mmol/ L 06/02 3:15 AM [employer] [facility] Not Available Not Available 06/26/2024 11:58:17 06/02/19 25 06/02/2024 Compr ehens sofia metab olic 1999 panel - Serum or Plasm a calcium 8.9 mg/dL low: 8.6mg/ dLhigh : 10.2mg /dL CALCI UM 8.9 8.6 - 10.2 mg/dL 06/02 3:15 AM [employer] [facility] Not Available Not Available 06/26/2024 11:58:17 06/02/19 25 06/02/2024 Compr ehens sofia metab olic 2000 panel - Serum or Plasm a BUN 8 mg/dL low: 6mg/dL high: 20mg/d L BUN 8 6 - 20 mg/dL 06/02 3:15 AM [facility] Not Available Not Available 06/26/2024 11:58:17 06/02/19 25 06/02/2024 Compr ehens sofia metab olic 1999 panel - Serum or Plasm a creatinine [mass/volume ] in serum or plasma 0.54 mg/dL low: 0.51mg /dLhig h: 0.95mg /dL CREAT ININE 0.54 0.51 - 0.95 mg/dL 06/02 3:15 AM [facility] Not Available Not Available 06/26/2024 11:58:17 06/02/19 25 06/02/2024 Compr ehens sofia metab olic 1999 panel - Serum or Plasm a glucose [mass/volume ] in serum or plasma 100 mg/dL low: 74mg/d Lhigh: 99mg/d L high GLUCO SE 100 (H) 74 - 99 mg/dL 06/02 3:15 AM [facility] Not Available Not Available 06/26/2024 11:58:17 06/02/19 25 06/02/2024 Compr ehens sofia metab olic 1999 panel - Serum or Plasm a total protein 7 g/dL low: 6.7g/d Lhigh: 8.6g/d L TOTAL PROTE IN 7.0 6.7 - 8.6 g/dL 06/02 3:15 AM [facility] Not Available Not Available 06/26/2024 11:58:17 06/02/19 25 06/02/2024 Compr ehens sofia metab olic 2000 panel - Serum or Plasm a albumin 4 g/dL low: 3.5g/d Lhigh: 5.2g/d L ALBUM IN 4.0 3.5 - 5.2 g/dL 06/02 3:15 AM [facility] Not Available Not Available 06/26/2024 11:58:17 06/02/19 25 06/02/2024 Compr ehens sofia metab olic 2000 panel - Serum or Plasm a bilirubin total 0.9 mg/dL low: 0.3mg/ dLhigh : 1.2mg/ dL BILIR UBIN TOTAL 0.9 0.3 - 1.2 mg/dL 06/02 3:15 AM [facility] Not Available Not Available 06/26/2024 11:58:17 06/02/19 25 06/02/2024 Compr ehens sofia metab olic 1999 panel - Serum or Plasm a alkaline phosphatase 80 U/L low: 35U/Lh igh: 104U/L ALKAL INE PHOSP HATAS E 80 35 - 104 U/L 06/02 3:15 AM [facility] Not Available Not Available 06/26/2024 11:58:17 06/02/19 25 06/02/2024 Compr ehens sofia metab olic 2000 panel - Serum or Plasm a AST 15 U/L high: 33U/L AST 15 <33 U/L 06/02 3:15 AM [facility] Not Available Not Available 06/26/2024 11:58:17 06/02/19 25 06/02/2024 Compr ehens sofia metab olic 1999 panel - Serum or Plasm a alanine aminotransfe rase [enzymatic activity/vol ume] in blood 8 U/L high: 34U/L ALT 8 <34 U/L 06/02 3:15 AM [facility] Not Available Not Available 06/26/2024 11:58:17 06/02/19 25 06/02/2024 Compr ehens sofia metab olic 1999 panel - Serum or Plasm a glomerular filtration rate/1.73 sq M.predicted [volume rate/area] in serum, plasma or blood by creatinine-b ased formula (CKD-epi 2020) text: >=60 mL/min /1.73 sq meter GFR >60 >=60 mL/mi n/1.7 3 sq meter 06/02 3:15 AM [facility] Not Available Not Available 06/26/2024 11:58:17 06/02/19 25 06/02/2024 Compr ehens sofia metab olic 1999 panel - Serum or Plasm a anion gap 9 mmol/ L low: 8mmol/ Lhigh: 16mmol /L ANION GAP 9 8 - 16 mmol/ L 06/02 3:15 AM 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 [facility] Not Available Not Available 06/26/2024 11:58:17 06/02/19 25 06/02/2024 Compr ehens sofia metab olic 1999 panel - Serum or Plasm a Unknown Analyte Sample s contai janelle indocy anine green cause interf erence s on Total and/or Direct Biliru bin and must not be measur ed. Sampl es conta ining indoc ramon e green cause inter feren sobeida on Total and/o r Direc t Bilir ubin and must not be measu red. Not Available Not Available 06/26/2024 11:58:17 06/02/19 25 06/02/2024 Compr ehens sofia metab olic 1999 panel - Serum or Plasm a interpretati on and review of laboratory results Abnorm al Not Available Not Available 11:58:17 04/14/20 24 08/31/2023 US, thang t, naty ruelas No observ ation record ed. [facility] [address], [place], [address], 04/22/2024 13:07:35 05/25/19 25 05/25/2024 XR, chest , 2 view No observ ation record ed. black [facility] [address], [place], [address], 05/29/2024 17:42:16 06/01/[address] ABD+p el W con [facility] [place] [address] [address] [facility] [place] [address] [facility] [address] [place] [id number] Examin ation: CT abdome n and pelvis with IV contra st. Clinic al Inform ation: Abdomi nal pain. Compar lauren:C T 1024. Techni que: IV contra st: 100 mL Isovue 370. Oral contra st: None. Techni henry commen ts: Standa rd techni que. Dose reduct ion: This CT exam was perfor med using one or more of the follow ing dose reduct ion techni ques: Automa kashif exposu re contro l, adjust ment of the mA and/or kV accord ing to patien t size, and/or use of iterat sofia recons tructi on techni que. Findin gs: LOWER CHEST Heart is normal in size. Lung bases are clear. No pleura l or perica rdial effusi ons. UPPER ABDOME N Liver and bile ducts: No focal liver lesion . Portal vein and hepati c veins are patent . No biliar y dilata tion. Gallbl adder: Stones are presen t within the gallbl adder. No gallbl adder wall thicke janelle or perich olecys tic fluid. Pancre as: Unrema rkable . Spleen : Normal . RETROP ERITON EUM Adrena ls: Normal . Kidney s: Normal . Lymph nodes: No lympha denopa thy in the abdome n or pelvis . BOWEL AND PERITO NEUM Bowel: No acute bowel obstru ction. Modera te to large volume stool densit y presen t within the ascend ing and transv erse colon. No acute inflam matory proces s. Free air or fluid: None. VASCUL ATURE The abdomi nal aorta is normal in calibe r. PELVIS Interv al enlarg ement of a left ovaria n cyst, now measur ing 4.5 cm, previo usly 2.5 cm. An IUD is in place. The urinar y bladde r appear s unrema rkable . BONES/ SOFT TISSUE S No signif icant lesion . Impres ilana: 1. No acute abnorm ality identi fied within the abdome n or pelvis . 2. Uncomp licate d cholel ithias is. 3. Modera te to large volume stool densit y presen t within the ascend ing and transv erse colon. 4. Interv al enlarg ement of the left ovaria n cyst, now measur ing 4.5 cm, previo usly 2.5 cm. Referr ed By: Electr onical ly Signed By: Sana Ford MD on 2:53 AM Interp reted By: Sana Ford MD, 2:46 AM [facility] [address] [place], [address], 06/03/2024 15:01:43 06/03/19 25 ECG 12-le ad [facility] [place] [address] [facility] [place] [address], [place] Test Date: 06-01 Pat Name: ROBBIN Camacho Depart ment: 41 Patien t ID: [id number] Room: [id number] 16 Gender : Female Techni martin: : [birth year]17 Reques kashif By: FEIM REDD Order Number : [id number] Jared arnold MD: Hunter Morgan [employer] Interv als [place] Rate: 90 P: 43 AR: 124 QRS: 10 QRSD: 77 T: 15 QT: 340 QTc: 416 Interp retive Statem ents SINUS RHYTHM Compar ed to ECG 2023 04:20: 03 No signif icant change s Electr onical ly signed by Hunter Morgan at 15:32: 12 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 [address], [address], 06/04/2024 10:05:05 06/03/19 25 ECG 12-le ad [facility] [place] [address] [facility] [place] [address], [place] Test Date: 06-01 Pat Name: ROBBIN Camacho Depart ment: 41 Patien t ID: [id number] Room: [id number] 16 Gender : Female Techni martin: : 1996-0 1-04 Reques kashif By: FEMICHALINO REDD Order Number : [id number] Jared arnold MD: Hunter Morgan [employer] Interv als [place] Rate: 90 P: 43 AR: 124 QRS: 10 QRSD: 77 T: 15 QT: 340 QTc: 416 Interp retive Statem ents SINUS RHYTHM Compar ed to ECG 2023 04:20: 03 No signif icant change s Electr onical ly signed by Hunter Morgan at 06-03- 025 15:32: 12 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 yauz [facility] 1 [facility], [place], [address], 06/04/2024 10:05:05 Result Notes None recorded. Problems Name Problem SNOMED Code Status Onset Date Resolution Date Notes Provider Name and Address Organization Details Recorded Time Body mass index 25-29 - overweig 516835229 Active 2023 MARAH Olivares Attn: Jaja arnold,[address] [place], [place], [address] [place] [address] 2, [facility] - SI 4 12:47:43 Mass of left breast 86503550056 018235 Active 2023 MARAH Olivares Attn: Accountleta g,[address] [place], [place], [address] [place] [address] 2, [facility] - SI 4 12:47:43 Cyst of left ovary 40212022914 458032 Active 2023 MARAH Olivares Attn: Accountin g,[address] [place], [place], [address] [place] [address] 2, [facility] - SI 4 12:47:43 Migraine with aura 7626587 Active 2023 MARAH Olivares Attn: Accountin g,[address] [place], [place], [address] [place] [address] 2, [place] - [facility] 4 12:49:33 Cyst of right ovary 51988745436 581495 Active 2023 MARAH Olivares Attn: Jaja g,[address] [facility], [place], [address], [place] - [facility] 4 12:49:33 Past pregnanc y history of gestatio nal diabetes mellitus 060419096 Active 2023 MARAH Olivares Attn: Accountleta g,[address] [facility], [place], [address], [place] - [facility] 4 14:23:19 Strain of left trapeziu s muscle 71009418884 902742 Active 2023 MAARH Olivares Attn: Jaja g,[address] [facility], [place], [place], [address] [place] [address] 2, [facility] - SIF 4 17:02:30 Overweig ht 502156506 Active 2023 MARAH Olivares Attn: Jaja g,[address] [facility], [place], [place], [address] [place] [address] 2, [place] - [facility] 4 12:49:33 Acute urinary tract infectio n 953937578 Completed 202312/19/2023 Removal Reason: resolved MARAH Olivares Attn: Jaja arnold,[address] [facility], [place], [address], [place] [facility] 4 11:42:33 Hyperins ulinism 93971645 Active 2023 MARAH Olivares Attn: Jaja g,[address] [facility], [place], [address], [place] [facility] 4 14:23:19 Posterio r rhinorrh ea 35255969 Active 2023 MARAH Olivares Attn: Jaja g,[address] [facility], [place], [address], [place] [facility] 5 15:13:04 Fibromya lgia 902254990 Active 2023 MARAH Olivares Attn: Jaja arnold,[address] [facility], [place], [address], [place] - [facility] 4 14:23:19 Fibrocys tic changes of bilatera l breasts 43022628349 675596 Active 2023 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 Attn: Jaja arnold,[address] [facility], [place], [address], [place] - [facility] 5 15:13:04 Fibroade noma of left breast Active 2023 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 Attn: Jaja arnold,[address] [facility], [place], [address], [facility] - [facility] 5 15:13:04 Acanthos is nigrican s 178863190 Active 2024 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 Procedures Surgical History Date Name Laterality Status Provider Name and Address Organization Details Recorded Time 4 Cerumen Removal completed TAVARES Olivares-BC Attn: Accounting,[address] [place], [address], [facility] - [facility] 07/18/2023 11:04:56 4 IUD Insertion completed TAVARES Olivares-BC Attn: Accounting,[address] [place], [address], [facility] - [facility] 05/29/2023 14:11:32 3 Date of Last Pap Smear completed Idalia Chawla RN CT - [facility] 05/22/2023 10:32:34 09/18/202 3 delivery completed Michael Wilson MA CT - [facility] 05/18/2023 12:01:50 delivery completed Michael Wilson MA CT - [place] 05/09/2022 10:40:36 removal of sebaceous cyst completed Michael Wilson MA CT - [place] 05/09/2022 10:41:04 Imaging Results Imaging Date Name Status LastModified by Organiz ation Details LastModified Time 08/31/2023 US, breast, unilateral completed [address], [address], 04/22/2024 13:07:35 05/25/2024 XR, chest, 2 view completed [facility] [address], [place], [address], 05/29/2024 17:42:16 06/01/2024 CT ABD+pel W con completed [address], [address], 06/03/2024 15:01:43 06/03/2024 ECG 12-lead completed [address], [address], 06/04/2024 10:05:05 06/03/2024 ECG 12-lead completed [address], [address], 06/04/2024 10:05:05 Procedure Notes None recorded. Medical Equipment None Reported. Allergies No known drug allergies Medications Name Sig Start Date Stop Date Status Note LastModified by Organization Details LastModified Time Mirena 21 mcg/24 hr (up to 8 years) 52 mg intrauter ine device Take 1 device by intraute rine route. 2023 active Not Available Not Available Not Avai lable metformin 500 mg tablet TAKE 1 TABLET BY MOUTH ONCE DAILY WITH MEALS 02/07 completed Not Available Not Available Not Available Neurontin 300 mg capsule Take 1 capsule 3 times a day by oral route, for fibromya lgia. 2024 active Not Available Not Available Not Avai lable cetirizin e 10 mg tablet Take 1 tablet every day by oral route, for nasal congesti on. 2024 active Not Available Not Available Not Avai lable azithromy ray 250 mg tablet TAKE 2 TABLETS (500 MG) BY ORAL ROUTE ONCE DAILY FOR 1 DAY THEN 1 TABLET (250 MG) BY ORAL ROUTE ONCE DAILY FOR 4 DAYS 02/07 completed Not Available Not Available Not Available fluconazo le 150 mg tablet TAKE 1 TABLET BY MOUTH A ONE TIME DOSE 05/18 completed Not Available Not Available Not Available benzonata te 200 mg capsule TAKE 1 CAPSULE BY MOUTH THREE TIMES DAILY NEEDED FOR COUGH 07/17 completed Not Available Not Available Not Available sulfameth oxazole 400 mg-trimet hoprim 80 mg tablet TAKE 1 TABLET BY MOUTH TWICE DAILY FOR 14 DAYS 10/11 completed Not Available Not Available Not Available phenazopy ridine 200 mg tablet TAKE 1 TABLET BY MOUTH THREE TIMES DAILY FOR 3 DAYS 12/18 completed Not Available Not Available Not Available metronida zole 0.75 % (37.5 mg/5 gram) vaginal gel Insert 1 applicat orful every day by vaginal route for 5 days. 05/15 completed Not Available Not Available Not Available clonazepa m 0.5 mg tablet 12/18 completed given in the ER Not Available Not Available Not Available propranol ol 60 mg tablet Take 1 tablet twice a day by oral route, for migraine with aura. 2024 active Not Available Not Available Not Avai lable aspirin 81 mg tablet,de layed release 05/18 completed Not Available Not Available Not Available ondansetr on 8 mg disintegr ating tablet DISSOLVE 1 TABLET IN MOUTH TWICE DAILY 10/11 completed Not Available Not Available Not Available propranol ol 40 mg tablet TAKE 1 TABLET BY MOUTH TWICE DAILY 09/17 completed Not Available Not Available Not Available famotidin e 20 mg tablet TAKE 1 TABLET BY MOUTH ONCE DAILY FOR 20 DAYS active Not Available Not Available No t Available amitripty line 25 mg tablet TAKE ONE TABLET BY MOUTH EVERY DAY 05/18 completed Not Available Not Available Not Available OneTouch Ultra Test strips 05/18 completed Not Available Not Available Not Available benzonata te 100 mg capsule TAKE 1 CAPSULE BY MOUTH EVERY 8 HOURS FOR 4 DAYS 05/15 completed Not Available Not Available Not Available cephalexi n 500 mg capsule TAKE 1 CAPSULE BY MOUTH TWICE DAILY FOR 7 DAYS 05/29 completed Not Available Not Available Not Available nortripty line 10 mg capsule 02/07 completed causes nausea/i nsomnia Not Available Not Available Not Available Anaprox DS 550 mg tablet Take 1 tablet every 12 hours by oral route, for breakthr ough headache s. 2024 active Not Available Not Available Not Avai lable docusate sodium 100 mg capsule TAKE 1 CAPSULE BY MOUTH TWICE DAILY 05/18 completed Not Available Not Available Not Available gabapenti n 100 mg capsule TAKE 1 CAPSULE BY MOUTH THREE TIMES DAILY FOR FIBROMYA LGIA 05/15 completed Not Available Not Available Not Available ibuprofen 600 mg tablet TAKE 1 TABLET BY MOUTH EVERY 6 HOURS NEEDED FOR PAIN 05/18 completed Not Available Not Available Not Available albuterol sulfate HFA 90 mcg/actua tion aerosol inhaler INHALE 2 PUFFS BY MOUTH EVERY 4 HOURS NEEDED FOR WHEEZING UP TO FOR 7 DAYS 07/17 completed Not Available Not Available Not Available ondansetr on 4 mg disintegr ating tablet DISSOLVE 1 TABLET IN MOUTH EVERY 8 HOURS NEEDED FOR NAUSEA active Not Available Not Available No t Available fluticaso ne propionat e 50 mcg/actua tion nasal spray,osmar pension Bock 1 spray twice a day by intranas al route, for nasal congesti on. 2024 active Not Available Not Available Not Avai lable naproxen 500 mg tablet TAKE 1 TABLET BY MOUTH TWICE DAILY NEEDED FOR PAIN active Not Available Not Available No t Available amoxicill in 875 mg-potass ium clavulana te 125 mg tablet TAKE 1 TABLET BY MOUTH EVERY 12 HOURS FOR 7 DAYS 07/17 completed Not Available Not Available Not Available cyclobenz aprine 5 mg tablet TAKE 1 TABLET BY MOUTH THREE TIMES DAILY NEEDED 05/15 completed Not Available Not Available Not Available nitrofura ntoin monohydra te/macroc rystals 100 mg capsule Take 1 capsule every 12 hours by oral route for 7 days, for uti. 12/18 completed Not Available Not Available Not Available duloxetin e 20 mg capsule,d elayed release 02/07 completed pt did not tolerate Not Available Not Available Not Available Constulos e 10 gram/15 mL oral solution TAKE 30 ML BY MOUTH ONCE DAILY NEEDED FOR CONSTIPA TION active Not Available Not Available No t Available diclofena c sodium 05/18 completed started in [place] for migraine Not Available Not Available Not Available FeroSul 325 mg (65 mg iron) tablet TAKE 1 TABLET BY MOUTH ONCE DAILY WITH BREAKFAS T 05/18 completed Not Available Not Available Not Available ketorolac 30 mg/mL injection solution Inject 1 mL every 6 hours by intraven ous route. 09/17 completed Not Available Not Available Not Available Linzess 145 mcg capsule Take 1 capsule every day by oral route, for constipa tion. 2023 active lot [id number] 10/2024 Not Available Not Available Not Available Classic 28 mg iron-800 mcg tablet TAKE 1 TABLET BY MOUTH ONCE DAILY 05/18 completed Not Available Not Available Not Available OneTouch Ultra2 Meter 05/18 completed Not Available Not Available Not Available OneTouch Delica Plus Lancet 33 gauge 05/18 completed Not Available Not Available Not Available Se-Nikki- 19 29 mg iron-1 mg tablet TAKE 1 TABLET BY MOUTH ONCE DAILY 05/18 completed Not Available Not Available Not Available Paxlovid 300 mg (150 mg x 2)-100 mg tablets in a dose pack TAKE 3 TABLETS TOGETHER (TWO 150 MG NIRMATRE LVIR TABLETS AND ONE 100 MG RITONAVI R TABLET) BY MOUTH TWICE DAILY FOR 5 DAYS. 07/17 completed Not Available Not Available Not Available Vitals Date Recorded Body height Body mass index (BMI) Body weight Body temperature Oxygen saturation Oxygen saturation in Arterial blood by Pulse oximetry Heart rate Systolic blood pressure Diastolic blood pressure Provider Name and Address Organization Details Last Updated DateTime 151.13 cm 27.3 kg/m2 22656.5 5 g 98.3 [degF] 99 % 99 % 96 /min 102 mm[Hg] 70 mm[Hg] Edel Sanchez farhat CON[facility] 4 11:05:18 Date Recorded Body height Body mass index (BMI) Body weight Oxygen saturation Oxygen saturation in Arterial blood by Pulse oximetry Heart rate Body temperature Systolic blood pressure Diastolic blood pressure Provider Name and Address Organization Details Last Updated DateTime 4 151.13 cm 27.4 kg/m2 85292.7 5 g 99 % 99 % 90 /min 97.9 [degF] 110 mm[Hg] 70 mm[Hg] Edel Sanchez farhat [facility] 4 14:10:38 Date Recorded Body height Provider Name an d Address Organization Details Last Updated DateTime 05/02/2024 151.13 cm Michael witt MA [facility] 05/02/2024 11:22:59 Date Recorded Body mass index (BMI) Body weight Body temperature Oxygen saturation Oxygen saturation in Arterial blood by Pulse oximetry Heart rate Systolic blood pressure Diastolic blood pressure Provider Name and Address Organization Details Last Updated DateTime 4 27.4 kg/m2 16099.7 5 g 97.9 [degF] 99 % 99 % 90 /min 100 mm[Hg] 70 mm[Hg] Edel dougherty MA [facility] 4 11:34:36 Date Recorded Body height Body mass index (BMI) Body weight Body temperature Oxygen saturation Oxygen saturation in Arterial blood by Pulse oximetry Heart rate Systolic blood pressure Diastolic blood pressure Provider Name and Address Organization Details Last Updated DateTime 5 151.13 cm 27.5 kg/m2 25979.5 5 g 97.6 [degF] 99 % 99 % 80 /min 114 mm[Hg] 72 mm[Hg] Michael Wilson MA [facility] 5 14:41:34 Date Recorded Body height Body mass index (BMI) Body weight Heart rate Body temperature Systolic blood pressure Diastolic blood pressure Provider Name and Address Organization Details Last Updated DateTime 5 151.13 cm 27.1 kg/m2 77747.7 1 g 80 /min 98.4 [degF] 105 mm[Hg] 69 mm[Hg] Jing Swift MA [facility] 5 12:51:34 Social History Question Answer Notes LastModified by Organizat ion Details LastModified Time Tobacco Smoking Status Never Smoker CON[place], [place] - [place] 05/09/2022 10:25:02 Do You Have An Advance Directive? No Information not available 05/09/2022 What Is Your Level Of Alcohol Consumption? Occasional Information not available 05/09/2022 Are You Blind Or Do You Have Difficulty Seeing? No Information not available 05/18/2023 What Is Your Level Of Caffeine Consumption? Moderate Coffee Information not available 05/18/2023 In The 14 Days Before Symptom Onset, Have You Had Close Contact With A Laboratory-confir med COVID-19 While That Case Was Ill? No Information not available 05/29/2023 In The 14 Days Before Symptom Onset, Have You Had Close Contact With A Person Who Is Under Investigation For COVID-19 While That Person Was Ill? No Information not available 05/29/2023 Have You Been To An Area Known To Be High Risk For COVID-19? No Information not available 05/09/2022 Are You Currently Employed? No Information not available 05/09/2022 Are You Deaf Or Do You Have Serious Difficulty Hearing? No Information not available 05/18/2023 What Type Of Diet Are You Following? REGULAR Information not available 05/18/2023 Are There Any Guns Present In Your Home? No Information not available 05/18/2023 What Was The Date Of Your Most Recent Tobacco Screening? 05/15/2024 Information not available 05/15/2024 How Many Children Do You Have? 3 Information not available 05/18/2023 What Is Your Relationship Status? Information not available 05/09/2022 Do You Use Your Seat Belt Or Car Seat Routinely? Yes Information not available 05/18/2023 Do You Have Smoke And Carbon Monoxide Detectors In Your Home? No Information not available 05/09/2022 Are You Passively Exposed To Smoke? No Information no t available 05/09/2022 Do You Feel Stressed (tense, Restless, Nervous, Or Anxious, Or Unable To Sleep At Night)? [id number] Information not available 05/29/2023 Do You Use Any Illicit Or Recreational Drugs? No Information not available 05/09/2022 Do You Use Sunscreen Routinely? No Information not available 05/18/2023 Has Tobacco Cessation Counseling Been Provided? No Information not available 05/29/2023 Do You Or Have You Ever Used Any Other Forms Of Tobacco Or Nicotine? No Information not available 07/18/2023 Sex: Female Functional Status Question Answer Note LastModified by Organization D etails LastModified Time Are you able to care for yourself? Yes Information n ot available 05/18/2023 What is your exercise level? None Information not available 05/18/2023 Mental Status None recorded. Family History Relationship Description Onset Age of this Age Resolved Age Notes LastModified by Organization Details LastModified Time Father Hypertensive disorder [email or web address] Not available 10:39:35 Mother Hypertensive disorder [email or web address] Not available 10:39:35 Paternal Grandmother Diabetes mellitus [email or web address] Not available 10:39:42 Medical History Condition Response Headaches Y Gynecological History Statement/Question Response Date of LMP 05/15/2024 Menses Monthly N Date of Last Pap Smear 03/30/2023 Duration of Flow (days) 3 Age at Menarche 14 Current Control Method IUD Age at First Child 21 LMP Approximate Obstetrics History GPAL:G 3 P 1 2 0 3 Type Value Full Term 1 Premature 2 Living 3 Total 3 Immunizations Vaccine Type Date Status Note Provider Nam e and Address Organization Details Recorded Time influenza, unspecified formulation 2 completed [place], [place] - [facility] 05/09/2022 10:33:58 Tdap 0 completed [place] [facility] 05/09/2022 10:43:02 Influenza, split virus, trivalent, preservative 4 completed Anderson Theodore [facility] Attn: Accounting,[address], [place], [address], [facility] - [facility] 02/08/2024 17:20:01 Past Encounters Encounter ID Performer Location Encounter Start Date Encounter Closed Date Diagnosis/Indication Diagnosis SNOMED-CT Code Diagnosis ICD10 Code Diagnosis Note [id number] RAMON VANCE [facility] [address], [place] [address] 05/09/2022 10:22:28 05/10/2022 11:12:11 Migraine with aura 4470988 G43.109 patient with migraines x 5 years that are worse with leaning forward, light and noise. was taking propanolol and diclofenac but was no longer working. recently advil migraine did help. - lbas to r/o Torres causes- start amitriptyl ine 25 to improve TORRES, sleep and depression - discussed side effects including black box warning- f/u closely with PCP and may need increased dose in 4 weeks Serum thyr oid stimulating hormone level outside reference range 913428627 R79.89 abnormal thyroid exam in [facility]repeat Goiter 8864510 E04.9 borderline large on exam [id number] Michael Wilson MA [facility] [address] [place] [address] 05/11/2022 09:42:11 05/16/2022 09:11:54 Anemia 367796051 D64.9 [id number] Anderson Theodore [facility] [address] [place] [address] 05/18/2023 11:50:49 05/22/2023 14:34:19 Contraception care 314139046 Z30.40 will order Mirena Body mass index 25-29 - overweight 195745780 Z68.27 BMI 27.7Ht 4' 11.5 Healthy weight range 90-125 Migraine with aura 74252 06 G43.109 Depression screening 171 097335 Z13.31 PHQ 2-9 neg Mental hea lt screening 172849499 Z13.39 CALIXTO-7 neg [id number] Anderson Theodore [facility] [address] [place] [address] 05/29/2023 12:02:58 05/31/2023 11:23:19 Insertion of intrauterine contraceptive device 87819458 Z30.430 Secondary amenorrhea 156 058755 N91.1 stopped BF a week agopregnan cy test is negative today Mass of left breast 1224 798715 9282833 N63.20 L breast massneeds repeat u/s Depression screening 171 658642 Z13.31 PHQ 2-9 neg Mental hea lth screening 224032486 Z13.39 CALIXTO-7 neg Body mass index 25-29 - overweight 848241963 Z68.27 BMI 27.4Ht 4' 11.5 Healthy weight range 90-753 [id number] [place] [address] [place], [place] [address] 06/05/2023 12:39:56 06/07/2023 15:56:30 IUD check 007715313 Z30.431 IUD strings noted and trimmedpat ients' cervix/radha rae has irregular contourwil l get pelvic u/s to check IUD placement Body mass index 25-29 - overweight 403715553 Z68.27 BMI 27.9Ht 4' 11.5 Healthy weight range 90-339 [id number] [facility] [address] [place] [address] 07/18/2023 10:28:53 07/26/2023 12:51:58 Body mass index 25-29 - overweight 912915873 Z68.27 BMI 27.9Ht 4' 11.5 Healthy weight range 90-125 Migraine with aura 72980 06 G43.109 Depression screening 171 647088 Z13.31 PHQ 2-9 neg Mental hea lth screening 803365885 Z13.39 CALIXTO-7 neg Mass of left breast 1224 628343 4542174 N63.20 L breast mass approx 3-4mm at 3 o'clock positionne eds repeat u/s Cyst of left ovary 15659 06245 0784355 N83.202 06/26/2023 US pelvis/tra nsabdomina l L ovary cystneeds repeat imaging in 4-6 weeks Impacted c erumen in right ear 2157026084 439285 H61.21 right ear irrigation Acute gastroenteritis 69 907668 K52.9 Dieta BRAT=Banan as, arroz cocido, salsa de manzana y tostadas de lozada sin mantequill a [id number] Anderson Amari, [facility] [address] [place] [address] 09/18/2023 12:11:29 09/21/2023 16:04:12 Body mass index 25-29 - overweight 073698654 Z68.27 BMI 27.9Ht 4' 11.5 Healthy weight range 90-125 Mass of left breast 1224 158720 8213774 N63.20 12/01/2022 L breast mass approx 3-4mm at 3 o'clock positionne eds repeat u/sHad repeat u/s on 08/31/2023 shows fibroadeno ma repeat in 6 months in L Cyst of left ovary 45368 56677 1486871 N83.202 06/26/2023 US pelvis/tra nsabdomina l L ovary cystneeds repeat imaging in 4-6 weeksHad repeat imaging done on 08/27/2023 L ovarian cyst [id number] pelvis u/s now shows internal simple cyst of r ovary-repe at u/s in 3 months Migraine with aura [address] of BRAIN 06/15/2023 normalwill increase propranolo l 40mg bid to 60mg bid as still having breakthrou gh headachesH as Naprosyn 500mg bid at pharmacy for refill-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31 PHQ 2-9 neg Mental [facility] screening [id number] Z13.39 CALIXTO-7 neg [id number] [facility] [address] [place] [address] 10/12/2023 16:08:01 10/15/2023 11:39:43 Overweight 319213612 E66.3 BMI 27.8 Follow-up visit [id number] Z09 28 y/o HF presents for ER follow up for UTI and trapezius strain. The patient was seen in the ER 09/29/2023 and 09/30/2023 as she was having back pain. She was diagnosed with an UTI and given treatment but symptoms were not improving. So patient returned to ER and was told she had musculo skeletal strain. She was given a muscle relaxer and NSAID. SHe continues to have some mild discomfort . SHe carries her baby and infant seat over 20 lbs on a regular basis. SHe voices pain worse after sitting for a while. She refuses PT as she has no time.SHe still has some urinary symptoms as well. She has urinary frequency. Hence, will treat with RX and send urine for culture.Ana Cristina kohler is concerned as she took a test at home that had a faint positive line at first. She repeated the test and it was negative. The patient has an IUD in place. Her test here in the office is negative. Acute urin tom tract infection [id number] N39.0 Strain of left trapezius muscle [id number] 0800526 S29.012D Back exercisess tretchingd o not carry heavy >10Refuses PT [id number] Anderson Theodore, [facility] [address] [place] [address] 12/19/2023 11:04:36 01/01/2024 13:31:30 Migraine with aura 7293522 G43.109 CT of BRAIN 06/15/2023 normalwill increase propranolo l 40mg bid to 60mg bid as still having breakthrou gh headachesn eeds Naprosyn 500mg bid for prn Body mass index 25-29 - overweight 423349127 Z68.27 BMI 26.7Ht 4' 11.5 Healthy weight range 90-125 Hyperinsulinism 09297608 E16.1 Fibromyalgia 483232267 M 79.7 Patient was started on Duloxetine daily on 12/04/2023 per rheumatolo gistPatien t took med for 3 daysPatien t doesnt like how she feels with it so she stopped itPatient has been given clonazepam from ER for s/s-she reports it works Do ent will start trial nortriptyl ine 10mg capsule at bedtime [id number] [facility] [address] [place] [address] 02/01/2024 10:54:19 02/07/2024 10:44:15 Acute frontal sinusitis 97096090 J01.10 [id number] [facility] [address] [place] [address] 02/08/2024 13:55:41 02/14/2024 08:39:19 Fibromyalgia 072076236 M79.7 Patient was started on Duloxetine daily on 12/04/2023 [facility] gistPatien t took med for 3 daysPatien t doesnt like how she feels with it so she stopped itPatient has been given clonazepam from ER for s/s-she reports it works Do ent will stop trial nortriptyl ine 10mg capsule at bedtime as it caused nausea and insomniaPa tient will try neurontin 100mg as directed Past pregn karmen history of gestational diabetes mellitus [id number] Z86.32 During last pregnancyG etting fasting BS readings in the 130'sDenie s polyuria, polyphagia or polydipsia Skin discolorat ion on neck09/18/19 24 HA1C 5.6non-fas ting BS [id number] 5.5 todaywill have the patient stop metformin for now/manage with [facility] Migraine with aura [address] of BRAIN 06/15/2023 normalwill increase propranolo l 40mg bid to 60mg bid as still having breakthrou gh headachesn eeds Naprosyn 500mg bid for prn Hyperinsulinism 37433120 E16.1 HA1C 5.5will stop metformin Body mass index 25-29 - overweight 274702642 Z68.27 BMI 27.4Ht 4' 11.5 Healthy weight range 90-125 Administra tion of influenza vaccine 57587247 Z23 Mass of left breast 1224 343446 2164913 N63.20 12/01/2022 L breast mass approx 3-4mm at 3 o'clock positionne eds repeat u/sHad repeat u/s on 08/31/2023 shows fibroadeno ma repeat in 6 months in L Posterior rhinorrhea 758 82586 R09.82 [id number] Anderson Theodore, [facility] [address], [place] [address] 05/02/2024 11:17:02 05/05/2024 16:07:59 Gynecologic examination 65056538 Z01.419 calcium rich food handoutvit feldman D dailySBEex ercisediet low fat low cho low carb Cyst of right ovary 1223 738864 5179228 N83.201 06/26/2023 US pelvis/tra nsabdomina l L ovary cystneeds repeat imaging in 4-6 weeksHad repeat imaging done on 08/27/2023 L ovarian cyst [id number] pelvis u/s now shows internal simple cyst of r ovary-repe at u/s in 3 [id number] pelvic/tra nsabdomina l u/s wnl Cyst of left ovary 04091 72174 0674028 N83.202 06/26/2023 US pelvis/tra nsabdomina l L ovary cystneeds repeat imaging in 4-6 weeksHad repeat imaging done on 08/27/2023 L ovarian cyst [id number] pelvis u/s now shows internal simple cyst of r ovary-repe at u/s in 3 [id number] pelvic/tra nsabdomina l u/s wnl Body mass index 25-29 - overweight 182569308 Z68.27 BMI 27.4Ht 4' 11.5 Healthy weight range 90-125 Mass of left breast 1224 296594 3218495 N63.20 12/01/2022 L breast mass approx 3-4mm at 3 o'clock positionne eds repeat u/sHad repeat u/s on 08/31/2023 shows fibroadeno ma repeat in 6 months in [facility] to get repeat u/s as ordered 02/2024 as has no medical insurance Not enroll ed in health insurance plan [id number] 08184 Z59.71 patient has no medical insurance Acute constipation 43179 9006 K59.00 Abnormal vaginal odor 62 289265 N89.8 Fibroadeno ma of left breast 8039624958 D24.2 12/01/2022 L breast mass approx 3-4mm at 3 o'clock positionne eds repeat u/sHad repeat u/s on 08/31/2023 shows fibroadeno ma repeat in 6 months in [facility] to get repeat u/s as ordered 02/2024 as has no medical insurance Fibrocysti c changes of bilateral breasts [id number] 7797905 N60.11 N60.12 hodan changeswor se before menses and if pressure [id number] TAVARES Olivares[facility] [address], [place] [address] 05/15/2024 14:28:59 05/16/2024 14:40:45 Migraine with aura 1755955 G43.109 CT of BRAIN 06/15/2023 normalwill continue propranolo l 60mg bidneeds Naprosyn 500mg bid for prn Body mass index 25-29 - overweight 665138653 Z68.27 BMI 27.5Ht 4' 11.5 Healthy weight range 90-125 Fibromyalgia 036489781 M 79.7 Patient was started on Duloxetine daily on 12/04/2023 per rheumatolo gistPatien t took med for 3 daysPatien t doesnt like how she feels with it so she stopped itPatient has been given clonazepam from ER for s/s-she reports it works Do ent stopped trial nortriptyl ine 10mg capsule at bedtime as it caused nausea and insomniaPa tient stopped neurontin 100mg as directed having back pain Overweight 409587131 E66 .3 BMI 27.5 Posterior rhinorrhea 758 01860 R09.82 Neck pain 98650690 M54.2 anteriorly will need TSH at next visit Acanthosis nigricans 402 956857 L83 notices increase brown discolorat ion of neck and axillaewas noticing improvemen t while taking MetforminH A1C today is 5.7 prediabete s [id number] ENRIQUE LIANG NP [facility] [address] [place] [address] 05/30/2024 12:42:33 06/03/2024 10:16:32 Indigestion 155609934 R10.13 Health Concerns Section Related Observation LastModified by Organization Detai ls LastModified Time None Recorded Concern Status LastModified by Organization Details LastModified Time None Recorded Advance Directives Directive N: Payers Encounter Date Sequence Insurance Name Policy Number Policy Pope Covered Member ID Pope Member ID Guarantor Name 02/01/2024 1 *SELF PAY* It desiree Allan 02/01/2024 1 [facility] (MEDICAID HMO) [id number] Og Allan [id number] Og Allan 02/08/2024 1 [facility] (MEDICAID HMO) [id number] Og Allan [id number] Og Allan 05/02/2024 [facility] Og Allan [id number] Og Allan 05/15/2024 1 *SELF PAY* It desiree Allan 05/30/2024 1 *SELF PAY* It desiree Allan Notes Date Note Type Note Provider Name and Address Organization Details Recorded Time 02/01/20 24 text/htm l Sinusitis/AllergyReported bypatient.Location:maxillary; frontal; sphenoid Associated Symptoms:no weight loss; no hemoptysis; no hematemesis; no difficulty breathing; no feeling of strangulation; no nausea or vomiting; no facial pain; no sore throat; no nasal itching; no eye itching; no skin itching;nasal discharge from both nostrils;fever/chills;headache forehead;sinus pain forehead;thick phlegm in throat;constantly clearing the throat;nasal discharge;nasal passage blockage bilaterally;ear fullness;pain behind the eyes both Onset/Timing:chronic; recurring Quality:no pain; no itching; no throbbing; minimal discomfort; improving;hoarseness;congested; colored phlegm Duration:intermittent; occurs daily; symptoms over a week Severity:does not limit daily activities; no nosebleeds (epistaxis); no snoring; current pain 5/10; moderate;frequent breathing through the mouth Context:not worse around animals; not worse around molds; not worse with environmental exposure; not worse when mowing grass; not worse with certain foods; not worse with odors;recent upper respiratory infection;recent sick contacts;worse with seasonal allergen exposure;worse around pollen;worse around dust Risk Factors:no current smoking or tobacco use; no history of smoking; no history of nasal trauma; no allergy to aspirin; no history of nasal polyps; no history of asthma; no chemotherapy; no DM; no HIV; no immunodeficiency;increased stress;family history of allergies Alleviating factors:nothing gives relief;no relief with antihistamines Aggravating factors:not worse with change in medication; worse during an upper respiratory infection (a cold); worse when allergies are active; worse with damp weather; worse with cold weather; worse with dry air MARAH Olivares Attn: Accounting,[address] [place], [address], [place] [facility] 02/01/2024 11:22:33 02/08/20 24 text/htm l FibromyalgiaReported bypatient.Frequencyintermittent Timing:worse in the AM Duration1 years Location:LLE; neck; mid-back; arm; legs; diffuse Severity:mild Pain in Joints or Muscles:no pain of joints or muscles;pain of joints or muscles Alleviating factors:rest; muscle relaxers; NSAIDS Associated Symptoms:no history of IBS; no jaw pain; no memory impairment; no morning stiffness; no muscle spasms; no pain with menstruation;fatigue;sleep disorders;chronic headaches;numbness/tingling in the extremities;dizziness;lighthead edness;abnormal skin sensitivityHeadacheReported bypatient.Quality:not the worst headache ever; similar to previous headaches Onset/Timing:better Context:not related to trauma Associated Symptoms:no vomiting; no sensitivity to light; tearing/watery eyes; no confusion; no slurred speech; no preceeding aura; no double vision; normal feeling/sensation; no motor paralysis; no dizziness; no sleep disturbances; no nosebleeds; no hoarseness; no sore throat; no hearing loss 28 y/o HF presents for migraine follow up. SHe feels better with propranolol but still has some breakthrough episodes. Anaprox DS helps. She wants to continue medication.She saw Neurologist for her symptoms of Left sided tingling sensation to foot that evolved to L arm within 24 hours. Initially, the patient was seen in the ER and while there she was set up to see Dr Thomas, neurologist. Since, she had a + CAMILA Dr Thomas referred the patient to souvenir street vendor for concerns of MS or Lupus.The patient saw souvenir street vendor Dr Hamzah Adhikari on 12/04/2023 and his diagnosis is fibromyalgia syndrome. She continues to experience some dizziness at night time, intermittent left foot numbness . She does describe some intermittent arthralgia mainly across the MCP articulations of both hands but no soft tissue swelling. She also reports upper back muscles arthralgia. She doesnt have good restorative sleep. The patient was given a trial of Duloxetine 20mg at HS which the patient took 3 days and doesnt like side effects nausea, fatigue and abdominal discomfort. Hence, she has stopped it. She voices Dr Adhikari advised her to follow up with PCP for trial of other medications for her symptoms. The patient voices that in the past she was given Clonazepam by ER doctor which helped with her symptoms. She voices having a history of anxiety symptoms and taking medication for this problem in the past. She was tried on nortriptilline 10mg at last visit but voices it caused her nausea and insomnia. Hence, will d/c and try another agent.Since her HA1C is wnl will have the patient discontinue metformin for now. She can continue to monitor bs at home.She needs orders for repeat breast u/s. Also requesting refill allergy meds.Patient wants influenza vaccine. No contraindications. MARAH Olivares Attn: Accounting,[address] [place], [address], [facility] 02/08/2024 17:26:06 05/02/20 24 text/htm l Annual GYNReported bypatient.Menstrual cycle:Normal menses Urinary symptoms:No hematuria; No incontinence Vulva:No genital lesion Vagina:Normal vaginal discharge Breast:No breast pain; No breast lump; No nipple discharge Current Contraception:Satisfied with current contraception; Intrauterine device (iud) Sexual complaints:No sexual complaints; No pain during intercourse; Normal libido Menopausal Symptoms:No menopausal symptoms; Normal vaginal lubrication Psychological symptoms:No depression; No anxiety; No PMDD Preventive measures:Encourage self breast examination; Encourage regular exercise; Encourage no tobacco use; Encourage regular mammograms starting age [age] y/o HF L3 presents for IBCCP WWE. Has IUD for contraception. Has 1 pap in system from 04/09/2023 normal cytology negative HPV. Will obtain second pap today to have 2 in the system. Anderson Theodore, [employer]- Attn: Accounting[address] [place], [address], [facility] - [facility] 05/02/2024 12:49:45 05/15/19 25 text/htm l FibromyalgiaReported bypatient.Frequencyintermittent Timing:worse in the AM Duration1 years Location:LLE; neck; mid-back; arm; legs; diffuse Severity:mild Pain in Joints or Muscles:no pain of joints or muscles;pain of joints or muscles Alleviating factors:rest; muscle relaxers; NSAIDS Associated Symptoms:no history of IBS; no jaw pain; no memory impairment; no morning stiffness; no muscle spasms; no pain with menstruation;fatigue;sleep disorders;chronic headaches;numbness/tingling in the extremities;dizziness;lighthead edness;abnormal skin sensitivityHeadacheReported bypatient.Quality:not the worst headache ever; similar to previous headaches Onset/Timing:better Context:not related to trauma Associated Symptoms:no vomiting; no sensitivity to light; tearing/watery eyes; no confusion; no slurred speech; no preceeding aura; no double vision; normal feeling/sensation; no motor paralysis; no dizziness; no sleep disturbances; no nosebleeds; no hoarseness; no sore throat; no hearing loss 28 y/o HF presents for migraine follow up. SHe feels better with propranolol but still has some breakthrough episodes. Anaprox DS helps. She wants to continue medication.She saw Neurologist for her symptoms of Left sided tingling sensation to foot that evolved to L arm within 24 hours. Initially, the patient was seen in the ER and while there she was set up to see Dr Thomas, neurologist. Since, she had a + CAMILA Dr Thomas referred the patient to souvenir street vendor for concerns of MS or Lupus.The patient saw souvenir street vendor Dr Hamzah Adhikari on 12/04/2023 and his diagnosis is fibromyalgia syndrome. She continues to experience some dizziness at night time, intermittent left foot numbness . She does describe some intermittent arthralgia mainly across the MCP articulations of both hands but no soft tissue swelling. She also reports upper back muscles arthralgia. She doesnt have good restorative sleep. The patient was given a trial of Duloxetine 20mg at HS which the patient took 3 days and doesnt like side effects nausea, fatigue and abdominal discomfort. Hence, she has stopped it. She voices Dr Adhikari advised her to follow up with PCP for trial of other medications for her symptoms. The patient voices that in the past she was given Clonazepam by ER doctor which helped with her symptoms. She voices having a history of anxiety symptoms and taking medication for this problem in the past. She was tried on nortriptilline 10mg and failed it. She voices it caused her nausea and insomnia. She was tried on Neurontin 100mg tid ran out. C/o a lot of back discomfort. Has no money for PT. Will try to increase dose and exercises ay home. MARAH Olivares Attn: Accounting,[address] [facility], [place], [address], [facility] 05/15/2024 17:40:31 05/30/19 25 text/htm miguel a Allan is a 29 y/o female who presents today with reports of having upper GI pain with eating and some nausea. She states it comes on after eating and with laying down. She states she was seen in the ER for this and was told to return if it came back.She states that it has been going on for about 1 month.Denies fever/chills/vomiting/ ENRIQUE LIANG NP Attn: Accounting,[address] [facility], [place], [address], [facility] 05/30/2024 13:11:19 OBGyn Episode Ob Episode Information Episode Created Date Number of Fetuses Patient Bloodtype Patient rh Status Prepregnancy Weight lbs Domestic Partner Domestic Partner Phone Father Name Wastewater Treatment Supervisor Status 05/18/19 24 1 CLOSED Fetus Data First Name Last Name Admitted to NICU Weight (g) Sex Living Outcome Pediatric Complications Fetus ID Race Codes Race Delivery Type M 09610 Tung Calculation Initial Tung Date Initial Exam [...] Complications Tubal Sterilization Discharge Date Comments 3 Discharge Information Feeding Method Contraceptive Method Maternal HG B and HCT Levels Ob Episode Information Episode Created Date Number of Fetuses Patient Bloodtype Patient rh Status Prepregnancy Weight lbs Domestic Partner Domestic Partner Phone Father Name Wastewater Treatment Supervisor Status 05/09/20 22 1 CLOSED Fetus Data First Name Last Name Admitted to NICU Weight (g) Sex Living Outcome Pediatric Complications Fetus ID Race Codes Race Delivery Type M 21560 Vaginal Tung Calculation Initial Tung Date Initial Exam [...] Complications Tubal Sterilization Discharge Date Comments 0 Discharge Information Feeding Method Contraceptive Method Maternal HG B and HCT Levels Ob Episode Information Episode Created Date Number of Fetuses Patient Bloodtype Patient rh Status Prepregnancy Weight lbs Domestic Partner Domestic Partner Phone Father Name Wastewater Treatment Supervisor Status 05/09/20 22 1 CLOSED Fetus Data First Name Last Name Admitted to NICU Weight (g) Sex Living Outcome Pediatric Complications Fetus ID Race Codes Race Delivery Type M 10446 Tung Calculation Initial Tung Date Initial Exam [...] Complications Tubal Sterilization Discharge Date Comments 7 Discharge Information Feeding Method Contraceptive Method Maternal HG B and HCT Levels
--- NOTE | 2024-07-02 12:01 | ED.GENADULT ---
HPI - General Adult General Chief complaint: Back Pain/Injury Stated complaint: back pain since april Time Seen by Provider: 07/02/24 11:56 Source: patient History of Present Illness HPI narrative: 29 years old female does not speak Georgian came to the ED by private car complaining of upper back pain bilaterally, upper chest pain bilaterally, sometime lower ribs bilaterally been going on of for over 1 year, usually gets better, this episode started April 2024 and has been going since. Worse with certain movements certain position, sometime better laying down still. She denies any fever, chills, nausea, vomiting. History of cholecystectomy, migraine headache and fibromyalgia. Patient was seen by industrial relations specialist for possible systemic lupus and she was told that she have fiberomyalgia and negative for systemic lupus Related Data Home Medications ?Medication ?Instructions ?Recorded ?Confirmed ?Last Taken ?Type propranolol 40 mg tablet 40 mg PO BID 07/07/23 05/25/24 Unknown History metformin 500 mg tablet 500 mg PO DAILY 05/25/24 05/25/24 Unknown History Allergies Allergy/AdvReac Type Severity Reaction Status Date / Time No Known Allergies Allergy Verified 05/25/24 13:56 Review of Systems Review of Systems: All systems reviewed & are unremarkable except as noted in HPI and below PMFSH Past Medical History Medical History Diabetes mellitus CAMILA positive Numbness and tingling of left lower extremity Migraine Left sided numbness Social History Social History Smoking status: Never smoker Alcohol intake: current Alcohol use details: Sometimes Substance use: never Substance use type: does not use Do You Feel Safe in your Home?: Yes Lack of Transportation: No Lack of Food: Never True Current Housing: I Have Housing Concerned About Future Housing: No Difficulty Paying Gas/Electric Bills: No Difficulty Paying for Meds: No Currently Unemployed: No Education: Decline to Answer Difficulty w/ Childcare or Family Care: No Exam Narrative: General appearance: Well-developed, well-nourished Skin: Normal color Head: Normocephalic, nontraumatic Eyes: Clear conjunctiva ENT: Oropharynx normal, ears normal, nose normal Neck: Supple, nontender Chest and respiratory: Airway patent, no respiratory distress, no accessory muscle use Heart: Regular rate/rhythm Abdomen: Soft, nontender, no organomegaly, quiet bowel sounds Vascular: Normal peripheral pulses, normal capillary refill. Musculoskeletal: Diffuse tenderness upper back bilaterally, mid back, lower ribs bilaterally and upper chest bilaterally with palpation, no bruises, no swelling, no rash Neurologic: Alert and oriented ?3, CHILD WELFARE COUNSELOR is normal as tested, no gross motor deficit Course Vital Signs Vital signs: Vital Signs Pulse Rate 84 07/02/24 13:08 Respiratory Rate 18 07/02/24 13:08 Blood Pressure 123/67 07/02/24 13:08 Pulse Oximetry 100 07/02/24 13:08 Oxygen Delivery Room Air 07/02/24 13:08 Pulse Rate 76 07/02/24 14:22 Respiratory Rate 18 07/02/24 14:22 Blood Pressure 114/62 07/02/24 14:22 Pulse Oximetry 100 07/02/24 14:22 Oxygen Delivery Room Air 07/02/24 13:08 Medical Decision Making MDM Narrative Medical decision making narrative: Differential diagnosis at noon disease, fibromyalgia, mice itis, myalgia Blood workup today includes CBC, CMP, sed rate showed no acute abnormalities. Chest x-ray today showed no acute abnormalities. Diagnosis muscular pain, fibromyalgia is a possibility. Differential Diagnosis Differential Diagnosis: As above Vital Signs Vital Signs: Vital Signs Pulse Rate 84 07/02/24 13:08 Respiratory Rate 18 07/02/24 13:08 Blood Pressure 123/67 07/02/24 13:08 Pulse Oximetry 100 07/02/24 13:08 Oxygen Delivery Room Air 07/02/24 13:08 Pulse Rate 76 07/02/24 14:22 Respiratory Rate 18 07/02/24 14:22 Blood Pressure 114/62 07/02/24 14:22 Pulse Oximetry 100 07/02/24 14:22 Oxygen Delivery Room Air 07/02/24 13:08 Lab Data 07/02/24 13:18 07/02/24 13:18 Labs: Lab Results 07/02/24 07/02/24 Range/Units 13:18 13:19 WBC 7.9 (4.5-10.0) K/mm3 RBC 3.81 L (4.2-5.4) M/mm3 Hgb 12.1 (12.0-15.0) g/dL Hct 36.1 L (37.0-47.0) % MCV 94.8 (80-100) fl MCH 31.8 (26-34) pg MCHC 33.5 (32-36) g/dl RDW 13.2 (11.5-14.5) % Plt Count 268 (150-375) k/mm3 MPV 10.2 (7.4-10.4) fl Immature Gran % (Auto) 0.3 (0-0.5) % Neut % (Auto) 71.4 (45.5-73.1) % Lymph % (Auto) 18.7 (18.3-44.2) % Talbot % (Auto) 7.9 (2.6-8.5) % Eos % (Auto) 1.1 (0-4.4) % Baso % (Auto) 0.6 (0.2-1.2) % Lymph # (Auto) 1.47 (0.9-3.2) K/mm3 Talbot # (Auto) 0.6 (0.1-0.6) K/mm3 Eos # (Auto) 0.1 (0-0.3) K/mm3 Baso # (Auto) 0.1 (0.0-0.1) K/mm3 Abs Immat Gran (auto) 0.02 (0.00-0.031) K/mm3 Absolute Neuts (auto) 5.6 (1.3-6.7) K/mm3 Absolute Nucleated RBC 0.000 (0.0-0.012) K/mm3 Nucleated RBC % 0.0 (0.0-0.2) % ESR Pending Sodium 141 (137-145) mmol/L Potassium 3.5 (3.4-5.0) mmol/L Chloride 103 (98-107) mmol/L Carbon Dioxide 27 (22-30) mmol/L Anion Gap 11 (4-12) mmol/L BUN 12 (7-17) mg/dL Creatinine 0.48 L (0.7-1.0) mg/dL Estim Creat Clear Calc 108 ml/min Estimated GFR > 60 (59 - ) Glucose 101 (65-110) mg/dL Calcium 9.0 (8.4-10.2) mg/dL Total Bilirubin 0.5 (0.2-1.3) mg/dL AST 31 (14-36) U/L ALT 27 (6-35) U/L Alkaline Phosphatase 87 (38-126) U/L Total Protein 8.0 (6.3-8.2) g/dL Albumin 4.4 (3.5-5.1) g/dL POC Urine HCG, Qual Negative (Negative) Imaging Data My impression: Impressions Chest X-Ray 07/02/24 13:44 Impression: Normal chest. Radiologist's impression: Chest x-ray showed no acute abnormalities Critical Care Time Critical Care Time Critical Care Time: No Discharge Plan Discharge Clinical Impression: Musculoskeletal pain Patient Disposition: Home, Self-Care Condition: Stable Additional Instructions: Return if symptoms are worsening , call your family physician for appointment, take Tylenol as as needed for aches and pain, continue home medications. Patient Language: Mauritanian Prescriptions: New cyclobenzaprine 10 mg tablet 10 mg PO TID PRN (Reason: muscle spasm) Qty: 20 0RF naproxen 500 mg tablet 500 mg PO BID PRN (Reason: pain) Qty: 14 0RF No Action benzonatate 200 mg capsule 200 mg PO TID 7 Days Qty: 21 0RF methylprednisolone [Medrol ([place])] 4 mg tablets,dose pack See Rx Instructions .ROUTE .COMPLEX Qty: 21 0RF Rx Instructions: orally per package directions metformin 500 mg tablet 500 mg PO DAILY propranolol 40 mg tablet 40 mg PO BID Follow-up/Referrals: Amari,ANGEL Barron [Primary Care Provider] -
--- OUTSIDE RECORDS SUMMARY | 2024-07-02 12:22 | XMS_ITS | Patient Health Summary ---
Author Organization [facility] Address [address] [place] [address] Care Team Providers Care Grease Cup Filler Name Role Phone Unavailable Primary Care Provider Unavailabl e Note from [facility],non-owned Affiliates and Associated Physician Practices is amultiple site organization consisting of ambulatory clinics and hospital sitesin [place], [place], [place] and [place]. This disclosure is being madepursuant to the Care Everywhere program and may not contain all information available regarding this patient. Last updated 18.[facility] Allergies No known active allergies Medications * [...] AM CDT Narrative 01/12/2023 12:31 PM CDT Formerly named [facility] and [facility] PHONE: FAX: Pat. Name: LAVELLE ANTHONY Pat. No: [id number] Study Date: 01/12/2023 10:06am , Age: 01 1995, 27 Pregnancies: 3, Para 1102 Height: 62 in Weight: 128 lb LMP: 05/09/2022 GA by LMP: 35w3d GA by Base: 35w3d JOHN: 02/13/2023 GA by US: 33w5d JOHN: 02/25/2023 GA Selected: 35w3d (LMP) JOHN: 02/13/2023 Referring MD: Blake Ivy MD Risk Mgr: Brisa Gonzalez RDMS CPT4: 66685 BMI: 23.41 Hist/Ind: G1: C/S @ 36 wk 2722 gm PROM G2: @ 38 wk GDM-A1 G3: Bilateral UTD @ 27 wk, GDM-A1, growth LGA MEASUREMENTS & AGE GROWTH EVALUATION Measurement GA Range Srce %for GA Ratios ----- ---- ------- BPD 8.7 cm 35w1d (84w5j-98d8y) Hadl BPD 46% FL/BPD 0.76 (0.71 - 0.87) HC 31.0 cm 34w4d (13q7y-35u1w) Hadl HC 7% FL/AC 0.18 (0.20 - 0.24* AC 37.3 cm 41w2d (52n1w-90w9n) Hadl AC >99 HC/AC 0.83 (0.93 - 1.12* FL 6.6 cm 34w1d (34v6t-41r8u) Hadl FL 13% CI 0.80 (0.70 - 0.86) HL 6.0 cm 35w0d (85k0s-26g8y) Rodolfo HL 42% GA for sonogram 33w5d (53a4u-92b5n) Weight Estimate: based on (HC,FL) Hadlock Weight: [...] <Electronic Signature> 01/12/2023 12:31pm Karthikeyan Mims MD [facility] ORDERABLES
--- OUTSIDE RECORDS SUMMARY | 2024-07-02 12:22 | XMS_ITS | Clinical Summary ---
Author Organization [facility] Address [address] [place] [address] Care Team Providers Care Lead Radiologic Technologist Name Role Phone No, Physician Primary Care Provider [phone] Allergies No known active allergies Medications [id number] 6-dha 30 mg iron-1mg -200 mg capsule [...] needed for pain 40 tablet 01/31/2023 Active vit,kgas04-typj -folic (PRENATABS RX) tablet tabletIndicatio ns:Vitamin Deficiency [...] Language difficulty 03/08/2023 Overview (03/08/2023): Pt speaks Danish; doesn't speak Panamanian. 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 37 weeks gestation of 01/29/2023 Delivery [...] more drinks on one occasion? Never 01/29/2023 [place] Depression Scale Answer Date Recorded [place] Depression Scale Total 0 01/31/2023 The thought [...] ANNA REEDER Emily B., MD Complications:None Delivery Location:[facility] Main C ampus (E L AND [...] reviewed 2021. Testing performed by: [facility], [address] [place] [address]., [id number] Blood 09/24/2023 4:35 PM CDT 09/24/2023 4:50 PM CDT Brandi [facility] BLOOD ORDERABLES Final Result [facility] [address] Department [place] [address] from Last 3 Months or Most Recently Relevant to Health Maintenance Insurance [facility] Advance Directives For more information, please contact: [phone] * Full Code (Latest Code Status on File) Date Activated Date Inactivated Comments 01/29/2023 5:05 PM 01/31/2023 9:08 PM * Full Code Date Activated Date Inactivated Comments 01/29/2023 1:27 PM 01/29/2023 5:05 PM Full CPR in case of cardiopulmonary arrest Care Teams Lead Radiologic Technologist Relationship Specialty Start Date End Date No, Physician PCP - General 01/13/23
--- OUTSIDE RECORDS SUMMARY | 2024-07-02 12:22 | XMS_ITS | Clinical Summary ---
Author Organization [facility] Address [address] [place] [address] Phone Care Team Providers Care Corset Maker Name Role Phone Unavailable Primary Care Provider [...] 14 days. 56 Tablet 06/02/2024 2:13 PM MACHINE STRIPPER 06/02/2024 06/16/19 25 docusate sodium (COLACE) 100 mg capsule Take 1 Capsule (100 mg) by mouth 2 times daily for 14 days. 28 Capsule 06/02/2024 2:13 PM MACHINE STRIPPER 06/02/2024 06/16/19 25 Active Problems Problem Noted Date Diagnosed Date Symptomatic cholelithiasis 06/01/2024 Encounters Date Type Department Care Team Description 07/01/2024 External Device Data STL ABSTRACTION Provider, Abstract 06/17/2024 External Device Data STL ABSTRACTION Provider, Abstract 06/16/2024 2:00 PM MACHINE STRIPPER Office Visit [facility] Trauma and General Surgery [address] [address] Mercedes Varner MD Postoperative follow-up (Primary Dx) 06/10/2024 External Device Data STL ABSTRACTION Provider, Abstract 06/05/2024 External Device Data STL ABSTRACTION Provider, Abstract 06/03/2024 External Device Data STL ABSTRACTION Provider, Abstract 06/02/2024 10:05 AM MACHINE STRIPPER Anesthesia Event [facility] Operating Room [address] [place] [address] Jalen Ro MD 06/02/2024 9:21 AM MACHINE STRIPPER - 06/02/2024 11:14 AM MACHINE STRIPPER Surgery [facility] Operating Room [address] [place] [address] Veronica Mayberry MD CHOLECYSTECTOMY LAPAROSCOPIC 06/02/2024 Travel 06/01/2024 6:48 PM MACHINE STRIPPER - 06/02/2024 3:28 PM MACHINE STRIPPER Emergency [facility] [address] [place] [address] Lawrence Hogue MD Schmidt, Lauren, MD Jensen, [...] on file Legal Sex Female 5:13 PM MACHINE STRIPPER Gender Identity Not on file Sexual Orientation Not on file Last Filed Vital Signs Vital Sign Reading Time Taken Comments Blood Pressure 98/62 06/16/2024 2:25 PM MACHINE STRIPPER Pulse 90 06/16/2024 2:25 PM MACHINE STRIPPER Temperature 36.4 C (97.6 F) 06/02/2024 3:17 PM MACHINE STRIPPER Respiratory Rate 14 06/02/2024 3:17 PM MACHINE STRIPPER Oxygen Saturation 100% 06/16/2024 2:25 PM MACHINE STRIPPER Inhaled Oxygen Concentration - - Weight 61.7 kg (136 lb 0.4 oz) 06/16/2024 2:25 P M MACHINE STRIPPER Height 152.4 cm (5') 06/16/2024 2:25 PM MACHINE STRIPPER Body Mass Index 26.57 06/16/2024 2:25 PM MACHINE STRIPPER Plan of Treatment Health Maintenance Due Date Last Done Comments HEPATITIS B VACCINES (1 of 3 - 19+ 3-dose series) 2014 CERVICAL CANCER SCREENING 2016 DTAP/TDAP/TD VACCINES (2 - T d or Tdap) 02/02/2030 02/03/2020 INFLUENZA VACCINE Completed 02/08/2024 HPV VACCINES Aged Out No longer eligi ble based on patient's age to complete this topic Medical Devices Implanted Type Area Sequencing Machine Operator Device Identifier Shelf Expiration Date Model / Serial / Lot Inventory Technician Ligamax Endo Multi Clip 5mm El5ml - [id number] Implanted:Qty : 1 on 06/02/2024 by Veronica Mayberry MD at [facility] Clip N/A: Abdomen [employer] [id number] 02/10/2029 EL5ML / / [id number] Procedures Procedure Name Priority Date/Time Associated Diagnosis Comments POC GLUCOSE Routine 06/02/2024 11:14 AM MACHINE STRIPPER PATHOLOGY Pathology 06/02/2024 10:51 AM MACHINE STRIPPER NC ANES INSERT ENDOTRACHEAL AIRWAY Routine 06/02/2024 10:27 AM MACHINE STRIPPER HERNIA UMBILICAL REPAIR 06/02/19 9:21 AM MACHINE STRIPPER NC LAPAROSCOPY SURG CHOLECYSTECTOMY 06/02/2024 9:21 AM MACHINE STRIPPER POC GLUCOSE Routine 06/02/2024 9:03 AM MACHINE STRIPPER HCG QUALITATIVE, URINE Stat 7:55 AM MACHINE STRIPPER TYPE AND SCREEN Routine 06/02/2024 2:15 AM MACHINE STRIPPER COMPREHENSIVE METABOLIC PANEL Routine 06/02/2024 2:15 AM MACHINE STRIPPER CBC WITH DIFFERENTIAL Routine 06/02/2024 2:15 AM MACHINE STRIPPER VERIFICATION BLOOD GROUP Stat 06/01/2024 6:16 PM MACHINE STRIPPER Encounter for blood typing LIPASE Stat 06/01/2024 6:16 PM MACHINE STRIPPER COMPREHENSIVE METABOLIC PANEL Stat 06/01/2024 6:16 PM MACHINE STRIPPER CBC WITH DIFFERENTIAL Stat 06/01/2024 6:16 PM MACHINE STRIPPER from Last 3 Months Results * (ABNORMAL) POC GLUCOSE (06/02/2024 11:14 AM MACHINE STRIPPER) Only the most recent of2 resultswithin the time period is included. GLUCOSE POC 111(H) 74 - 99 mg/dL 06/02/2024 11:14 AM MACHINE STRIPPER [facility] SPECIMEN SOURCE, GLUCOSE POC Whole Blood 06/02/2024 11:14 AM MACHINE STRIPPER [facility] COMMENT, GLU POC Notified RN/MD 06/02/2024 11:14 AM MACHINE STRIPPER [facility] Blood, whole 06/02/2024 11:1 4 AM MACHINE STRIPPER 06/02/2024 11:27 AM MACHINE STRIPPER Veronica Mayberry MD POINT OF CARE TESTING Final Result [facility]# [id number] [address] [facility] [place] [address] * PATHOLOGY (06/02/2024 10:51 AM MACHINE STRIPPER) CASE REPORT Surgical Pathology Report Case: [id number] Authorizing Provider: Veronica Mayberry MD Collected: 06/02/2024 10:51 AM Ordering Location: [facility] Received: 06/02/2024 11:31 AM Operating Room Pathologist: José Hensley MD Specimen: Gallbladder 12:16 PM MACHINE STRIPPER [facility] FINAL DIAGNOSIS A. Gallbladder, cholecystectomy - Mild acute cholecystitis (see comment) - Cholelithiasis 12:16 PM MACHINE STRIPPER [facility] at 1216 MACHINE STRIPPER GROSS DESCRIPTION Received in one container labeled [...] the wall measures 0.1 cm in thickness. Account Services Associate sections are submitted labeled: A1-cystic duct margin, neck, body, fundus. ARC 5 12:16 PM MACHINE STRIPPER [facility] MICROSCOPIC DESCRIPTION The slides are labeled [id number] and Og Guillen. Sections show the gallbladder with acute inflammation (few neutrophils) present in the mucosa, consistent with mild acute cholecystitis. 5 12:16 PM MACHINE STRIPPER [facility] OPERATIVE PROCEDURE 1: CHOLECYSTECTOMY LAPAROSCOPIC 2: HERNIA UMBILICAL REPAIR 5 12:16 PM MACHINE STRIPPER [facility] COMMENT Special stain, immunohistochemical, and/or in situ hybridization results are interpreted with controls that demonstrate appropriate staining reactions. Note on use of immunohistochemistry reagents and in situ hybridization probes: These tests were developed and their performance characteristics determined by [facility], Department of Laboratory Medicine. It has not [...] part or completely in the following laboratories: [facility], CLIA #[id number] [address] [place] [address] [facility], [place] #[id number] [address] [place] [address] [facility]/[place], [place] #[id number] [address] [place] [address] This report was created with the [employer] voice-activated dictation system. Inherent to this system is the possibility of syntax, grammar, punctuation and other errors that could impact the interpretation of the report. If there are interpretative questions about aspects of this report, please contact the performing pathologist. 12:16 PM MACHINE STRIPPER [facility] Tissue ENTIRE GALLBLADDER / Unknown Collection / Unknown 06/02/2024 10:51 AM MACHINE STRIPPER 06/02/2024 11:31 AM MACHINE STRIPPER Veronica Mayberry MD PATHOLOGY/CYTOLOGY ORDERABLE S Final Result [facility]# [id number] [address] [place] [address] * NC ANES INSERT ENDOTRACHEAL AIRWAY (06/02/2024 10:27 AM MACHINE STRIPPER) Narrative Jalen Ro MD - 06/02/2024 10:27 AM MACHINE STRIPPER Jalen Ro MD 06/02/2024 10:28 AM Airway [...] (ABNORMAL) HCG QUALITATIVE, URINE (06/02/2024 7:55 AM MACHINE STRIPPER) HCG QUAL URINE Negative Negative 06/02/2024 8:05 AM [facility] [email or web address] [facility] COLOR UA Yellow Pale to Dark Yellow 06/02/2024 8:05 AM [facility] [email or web address] [facility] CLARITY UA Slightly Cloudy(A) Clear 06/02/2024 8:05 AM [facility] [email or web address] [facility] Urine URINE SPECIMEN OBTAINED BY CLEAN CATCH PROCEDURE / Unknown 06/02/2024 7:55 AM MACHINE STRIPPER 06/02/2024 7:55 AM MACHINE STRIPPER Benoit Romero MD URINE ORDERABLES Final Result [facility] [email or web address] [facility]# [id number] [address] [place] [address] * (ABNORMAL) CBC WITH DIFFERENTIAL (06/02/2024 2:15 AM MACHINE STRIPPER) Only the most recent of2 resultswithin the time period is included. WBC 11.7(H) 4.0 - 9.8 K/uL 06/02/2024 2:43 AM [facility] [email or web address] [facility] RBC 3.94 3.90 - 4.90 M/uL 06/02/2024 2:43 AM [facility] [email or web address] [facility] HEMOGLOBIN 12.4 11.8 - 14.8 g/dL 06/02/2024 2:43 AM [facility] [email or web address] [facility] HEMATOCRIT 37.5 35.5 - 44.0 % 06/02/2024 2:43 AM [facility] [email or web address] [facility] MCV 95.2 82.0 - 99.0 fL 06/02/2024 2:43 AM [facility] [email or web address] [facility] MCH 31.5 27.2 - 32.6 pg 06/02/2024 2:43 AM [facility] [employer] [facility] MCHC 33.1 31.5 - 35.5 g/dL 06/02/2024 2:43 AM [facility] RDW 13.1 11.5 - 14.5 % 06/02/2024 2:43 AM [employer] [facility] RDW-STDEV 46.0 37.1 - 48.7 fL 06/02/2024 2:43 AM MACHINE STRIPPER [employer] [facility] PLATELETS 275 140 - 350 K/uL 06/02/2024 2:43 AM [employer] [facility] MPV 10.0 9.3 - 12.4 fL 06/02/2024 2:43 AM [employer] [facility] NEUTROPHILS 65 % 06/02/2024 2:43 AM [employer] [facility] LYMPHOCYTES 25 % 06/02/2024 2:43 AM [employer] [facility] MONOCYTES 9 % 06/02/2024 2:43 AM [employer] [facility] EOSINOPHILS 1 % 06/02/2024 2:43 AM [employer] [facility] BASOPHILS 0 % 06/02/2024 2:43 AM [employer] [facility] IMMATURE GRANULOCYTES 0 % 06/02/2024 2:43 AM [employer] [facility] NEUTROPHIL ABSOLUTE 7.58(H) 1.90 - 7.00 K/uL 06/02/2024 2:43 AM [employer] [facility] LYMPHOCYTE ABSOLUTE 2.91 0.70 - 4.50 K/uL 06/02/2024 2:43 AM [employer] [facility] MONOCYTE ABSOLUTE 1.00 0.10 - 1.30 K/uL 06/02/2024 2:43 AM [employer] [facility] EOSINOPHIL ABSOLUTE 0.14 0.00 - 0.70 K/uL 06/02/2024 2:43 AM [employer] [facility] BASOPHILS ABSOLUTE 0.03 0.00 - 0.20 K/uL 06/02/2024 2:43 AM [employer] [facility] IMMATURE GRANULOCYTES ABSOLUTE 0.04(H) 0.00 - 0.03 K/uL 06/02/2024 2:43 AM [employer] [facility] Blood Venipuncture / Unknown 06/02/2024 2:15 AM MACHINE STRIPPER 06/02/2024 2:23 AM MACHINE STRIPPER Irma Brandon PA-C HEMATOLOGY ORDERABLES Otilia l Result [facility] - [facility] [place]# [id number] [address] [place] [address] * TYPE AND SCREEN (06/02/2024 2:15 AM MACHINE STRIPPER) Pathologist [facility] ABO GROUP B 06/02/2024 3:52 AM MACHINE STRIPPER [employer] [facility] -- [facility] RH (D) TYPE Positive 06/02/2024 3:52 AM MACHINE STRIPPER [employer] [facility] ANTIBODY SCREEN Negative 06/02/2024 3:52 AM MACHINE STRIPPER [employer] [facility] Blood Venipuncture / Unknown 06/02/2024 2:15 AM MACHINE STRIPPER 06/02/2024 2:22 AM MACHINE STRIPPER Irma Brandon PA-C BLOOD BANK ORDERABLES Edit ed Result - Final Performing Organization Address City/[facility]/ZIP Co de Phone Number [facility] [email or web address] [facility]# [id number] [address] [place] [address] * (ABNORMAL) COMPREHENSIVE METABOLIC PANEL (06/02/2024 2:15 AM MACHINE STRIPPER) Only the most recent of2 resultswithin the time period is included. Pathologist [facility] SODIUM 136 136 - 145 mmol/L 06/02/2024 3:15 AM MACHINE STRIPPER [employer] [facility] - [facility] POTASSIUM 3.7 3.5 - 5.0 mmol/L 06/02/2024 3:15 AM MACHINE STRIPPER [employer] [facility] - [facility] CHLORIDE 102 98 - 107 mmol/L 06/02/2024 3:15 AM MACHINE STRIPPER [employer] [facility] CO2 25 22 - 29 mmol/L 06/02/2024 3:15 AM MACHINE STRIPPER [employer] [facility] CALCIUM 8.9 8.6 - 10.2 mg/dL 06/02/2024 3:15 AM MACHINE STRIPPER [employer] [facility] - [facility] BUN 8 6 - 20 mg/dL 06/02/2024 3:15 AM [facility] [email or web address] [facility] CREATININE 0.54 0.51 - 0.95 mg/dL 06/02/2024 3:15 AM [facility] GLUCOSE 100(H) 74 - 99 mg/dL 06/02/2024 3:15 AM [facility]. [facility] TOTAL PROTEIN 7.0 6.7 - 8.6 g/dL 06/02/2024 3:15 AM [facility] [email or web address] [facility]. [facility] ALBUMIN 4.0 3.5 - 5.2 g/dL 06/02/2024 3:15 AM [facility] [email or web address] [facility]. [facility] BILIRUBIN TOTAL 0.9 0.3 - 1.2 mg/dL 06/02/2024 3:15 AM [facility] [email or web address] [facility] ALKALINE PHOSPHATASE 80 35 - 104 U/L 06/02/2024 3:15 AM [facility] [email or web address] [facility] AST 15 <33 U/L 06/02/2024 3:15 AM [facility] [email or web address] [facility] ALT 8 <34 U/L 06/02/2024 3:15 AM [facility] [email or web address] [facility] GFR >60 >=60 mL/min/1.7 3 sq meter 06/02/2024 3:15 AM [facility] [email or web address] [facility] Comment:eGFR calculated with 2020 CKD-EPI equation. Vegetarian diet, extremely high or low muscle mass, and may affect results. Cystatin C with Glomerular Filtration Rate is a suitable alternative for these patients. ANION GAP 9 8 - 16 mmol/L 06/02/2024 3:15 AM [facility] [email or web address] [facility] Blood Venipuncture / Unknown 06/02/2024 2:15 AM [facility] 06/02/2024 2:22 AM [facility] [email or web address] [facility] - 06/02/2024 3:15 AM [facility] Samples containing indocyanine green cause interferences on Total and/or Direct Bilirubin and must not be measured. Irma Brandon PA-C CHEMISTRY ORDERABLES Final Result [facility] [email or web address] SERVICES - [facility] CLIA# [id number] [address] [place] [address] * VERIFICATION BLOOD GROUP (06/01/2024 6:16 PM MACHINE STRIPPER) ABO GROUP B 06/02/2024 7:59 AM MACHINE STRIPPER [facility] LABORATORY SERVICES -- [facility] RH (D) TYPE Positive 06/02/2024 7:59 AM MACHINE STRIPPER [facility] LABORATORY SERVICES -- [facility] Blood BLOOD SPECIMEN / Unknown Venipuncture / Unknown 06/01/2024 6:16 PM MACHINE STRIPPER 06/02/2024 6:27 AM MACHINE STRIPPER Lydia Lopez MD BLOOD BANK ORDERABLES Final Result Performing Organization Address [facility] Co de Phone Number [facility] LABORATORY SERVICES -- [facility] CLIA# [id number] [address] [address] * LIPASE (06/01/2024 6:16 PM MACHINE STRIPPER) LIPASE 52 13 - 60 U/L 06/01/2024 7:32 PM MACHINE STRIPPER [facility]ORY SERVICES - [facility] Blood Venipuncture / Unknown 06/01/2024 6:16 PM MACHINE STRIPPER 06/01/2024 6:50 PM MACHINE STRIPPER Lawrence Hogue MD CHEMISTRY ORDERABLES Final R esult Performing Organization Address City/[facility]/ZIP Co de Phone Number [email or web address] SERVICES - [facility] [place]# [id number] [address] [address] from Last 3 Months Insurance [employer] (INTERNAL) [facility] Internal Plans Advance Directives For more information, please contact: [phone] * Full Code (Latest Code Status on File) Date Activated Date Inactivated Comments 06/02/2024 7:09 AM 06/02/2024 5:34 PM
--- OUTSIDE RECORDS SUMMARY | 2024-07-02 12:22 | XMS_ITS | Referral Summary ---
Author Organization [facility] [employer] Address [address] [place] [address] Care Team Providers Care Preschool Assistant Teacher Name Role Phone Unavailable Primary Care Provider Unavailabl e Source Comments [facility],non-owned Affiliates and Associated Physician Practices is amultiple site organization consisting of ambulatory clinics and hospital sitesin [place], [place], [place] and [place]. This disclosure is being madepursuant to the Care Everywhere program and may not contain all information available regarding this patient. Last updated 18.[facility] [employer] Allergies No known active allergies Medications * [...]
--- OUTSIDE RECORDS SUMMARY | 2024-07-02 12:22 | XMS_ITS | Encounter Summary ---
Author Organization [employer] Address [address] [place] [address] Care Team Providers Care Rn Mental Health Name Role Phone Unavailable Primary Care Provider [...] on file Legal Sex Female 5:13 PM SUPERVISOR KNITT[employer] Gender Identity Not on file Sexual Orientation Not on file documented as of this encounter Plan of Treatment Not on file documented as of this encounter Visit Diagnoses Not on filedocumented in this encounter
--- OUTSIDE RECORDS SUMMARY | 2024-07-02 12:22 | XMS_ITS | Clinical Summary ---
Author Organization [facility] Address [address] [place] [address] Care Team Providers Care Loom Starter Name Role Phone Anderson Fitzpatrick ARISTEO Primary Care Provider [phone] Allergies No known active allergies Medications Blood Glucose Monitoring Suppl (ONE TOUCH ULTRA 2) w/Device Kit 3 Active ONETOUCH ULTRA test strip 3 Active ASPIRIN LOW DOSE 81 MG tablet 3 Active Lancets (ONETOUCH DELICA PLUS [id number]) Misc 3 Active Vit-Fe Fumarate-FA (CLASSIC ) [...] Department Care Team Description 06/01/2024 12:03 AM GRAPPLE OPERATOR - 06/01/2024 3:[address] [facility] Emergency [facility] [place] [address] Jose Redd MD,PHD Abdominal Pain; Back Pain [...] Sex Assigned at Female 05/31/2024 11:50 PM GRAPPLE OPERATOR Legal Sex Female 1:07 PM CDT Gender Identity Not on file Sexual Orientation Not on file Last Filed Vital Signs Vital Sign Reading Time Taken Comments Blood Pressure 97/69 06/01/2024 1:19 AM GRAPPLE OPERATOR Pulse 68 06/01/2024 1:19 AM GRAPPLE OPERATOR Temperature 36.3 C (97.3 F) 05/31/2024 11:37 PM GRAPPLE OPERATOR Respiratory Rate 20 06/01/2024 1:19 AM GRAPPLE OPERATOR Oxygen Saturation 100% 05/31/2024 11:37 PM GRAPPLE OPERATOR Inhaled Oxygen Concentration - - Weight 61.7 kg (136 lb) 05/31/2024 11:37 PM GRAPPLE OPERATOR Height 154.9 cm (5' 1 ) 05/31/2024 11:37 PM GRAPPLE OPERATOR Body Mass Index 25.7 05/31/2024 11:37 PM GRAPPLE OPERATOR Plan of Treatment Health Maintenance Due Date [...] ABD+PEL W CON STAT 06/01/2024 1:52 AM GRAPPLE OPERATOR URINALYSIS, AUTO, COMPLETE STAT 06/01/2024 1:21 AM GRAPPLE OPERATOR POCT URINE (BACK OFFICE) STAT 06/01/2024 1:17 AM GRAPPLE OPERATOR ECG 12-LEAD STAT 06/01/2024 12:17 AM GRAPPLE OPERATOR LIPASE STAT 06/01/2024 12:17 AM GRAPPLE OPERATOR COMPREHENSIVE METABOLIC PANEL STAT 06/01/2024 12:17 AM GRAPPLE OPERATOR CBC W/DIFF AUTOMATED STAT 06/01/2024 12:17 AM GRAPPLE OPERATOR from Last 3 Months Results * CT ABD+PEL W CON (06/01/2024 1:52 AM GRAPPLE OPERATOR) Anatomical Region Laterality Modality Abdomen Computed Tomogra phy 06/01/2024 2:46 AM GRAPPLE OPERATOR Impressions 06/01/2024 2:53 AM GRAPPLE OPERATOR Impression: 1. No acute abnormality identified within the abdomen or pelvis. 2. Uncomplicated cholelithiasis. 3. Moderate to large volume stool density present within the ascending and transverse colon. 4. Interval enlargement of the left ovarian cyst, now measuring 4.5 cm, previously 2.5 cm. Referred By: Interpreted By: Jordin Ford MD, 06/01/2024 2:46 AM Narrative 06/01/2024 2:53 AM GRAPPLE OPERATOR [facility] [address] [place], [place] [address] Examination: CT abdomen and pelvis with IV [...] Procedure Note Jordin Ford MD - 06/01/2024 [place] [id number] Examination: CT abdomen and pelvis with IV [...] (ABNORMAL) URINALYSIS, AUTO, COMPLETE (06/01/2024 1:21 AM GRAPPLE OPERATOR) SPECIMEN TYPE URINE CLEAN CATCH 06/01/2024 1:15 AM [facility] COLOR (U) YELLOW 06/01/2024 1:31 AM [facility] TRANSPARENCY CLEAR 06/01/2024 1:31 AM [facility] SPECIFIC GRAVITY (U) 1.029 1.001 - 1.030 06/01/2024 1:31 AM [facility] U PH 6.5 5.0 - 9.0 06/01/2024 1:31 AM [facility] LEUKOCYTES (U) 25(A) NEGATIVE 06/01/2024 1:31 AM [facility] NITRITES NEGATIVE NEGATIVE 06/01/2024 1:31 AM [facility] PROTEIN RANDOM (U) 20 <30 MG/DL 06/01/2024 1:31 AM GRAPPLE OPERATOR [facility] GLUCOSE (U) NORMAL NORMAL MG/DL 06/01/2024 1:31 AM [facility] KETONES MG/DL (U) NEGATIVE NEGATIVE MG/DL 06/01/2024 1:31 AM [facility] UROBILINOGEN 2.0(A) NORMAL MG/DL 06/01/2024 1:31 AM [facility] BILIRUBIN (U) NEGATIVE NEGATIVE MG/DL 06/01/2024 1:31 AM [facility] BLOOD (U) NEGATIVE NEGATIVE 06/01/2024 1:31 AM [facility] MUCUS MANY /LPF 06/01/2024 1:31 AM [facility] WBC/HPF 5 <6 /HPF 06/01/2024 1:31 AM GRAPPLE OPERATOR [facility] RBC/HPF 3 <6 /HPF 06/01/2024 1:31 AM [facility] BACTERIA (U) FEW(A) NONE /HPF 06/01/2024 1:31 AM GRAPPLE OPERATOR [facility] SQUAMOUS EPITHELIALS MODERATE /HPF 06/01/2024 1:31 AM [facility] URINE SPECIMEN OBTAINED BY CLEAN CATCH PROCEDURE / Unknown 06/01/2024 1:21 AM GRAPPLE OPERATOR Jordin NAVARRO URINE ORDERABLES Final Res ult [facility] [address] [place] [address], * POCT urine (06/01/2024 1:17 AM GRAPPLE OPERATOR) URINE HCG TEST NEGATIVE Internal Control: VALID Jordin NAVARRO POINT OF CARE TEST ORDERAB LES Final Result * ECG 12 lead (06/01/2024 12:17 AM GRAPPLE OPERATOR) 06/01/2024 12:1 7 AM GRAPPLE OPERATOR Narrative [facility] ([facility] - 06/03/2024 3:[address] [facility] 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) [facility] GLUCOSE 101(H) 70 - 99 MG/DL 06/01/2024 2:17 AM [facility] BUN 12 7 - 18 MG/DL 06/01/2024 2:17 AM [facility] CREATININE S/P/B 0.69 0.55 - 1.02 MG/DL 06/01/2024 2:17 AM [facility] SODIUM S/P/B 138 136 - 145 MMOL/L 06/01/2024 2:17 AM [facility] POTASSIUM S/P/B 3.7 3.5 - 5.1 MMOL/L 06/01/2024 2:17 AM [facility] CHLORIDE S/P/B 105 97 - 115 MMOL/L 06/01/2024 2:17 AM [facility] CO2 25.6 21 - 32 MMOL/L 06/01/2024 2:17 AM [facility] CALCIUM S/P/B 9.1 8.5 - 10.1 MG/DL 06/01/2024 2:17 AM [facility] BILIRUBIN TOTAL S/P/B 0.5 0.2 - 1.2 MG/DL 06/01/2024 2:17 AM [facility] Comment: THIS ASSAY IS NOT RECOMMENDED FOR PATIENTS UNDERGOING TREATMENT WITH ELTROMBOPAG DUE TO THE POTENTIAL FOR FALSELY ELEVATED RESULTS. TOTAL PROTEIN S/P/B 7.6 6.4 - 8.2 G/DL 06/01/2024 2:52 AM [facility] ALBUMIN S/P/B 3.7 3.4 - 5.0 G/DL 06/01/2024 2:17 AM [facility] AST 20 15 - 37 U/L 06/01/2024 2:17 AM [facility] ALT 10(L) 14 - 55 U/L 06/01/2024 2:17 AM [facility] ALKALINE PHOSPHATASE S/P/B 88 50 - 136 U/L 06/01/2024 2:17 AM [facility] ANION GAP 7.4 2 - 10 MMOL/L 06/01/2024 2:17 AM [facility] BUN CREATININE RATIO 17.4 6 - 26 06/01/2024 2:17 AM [facility] A/G RATIO 0.9(L) 1.0 - 2.0 RATIO 06/01/2024 2:52 AM [facility] GFR ESTIMATE >90 >90 ML/MIN/1.7 3 M2 06/01/2024 2:17 AM [facility] Comment: NOTE: eGFR is not calculated for patients <18 years of age or gender unknown. This is an estimated GFR calculation using the new CKD EPI creatinine equation without race and so does not require a correction factor for race. This estimated GFR should not be used for calculating drug doses. 06/01/2024 12:1 7 AM GRAPPLE OPERATOR us Jordin NAVARRO LABORATORY Final Resu lt [facility] [address] [place] [address], * (ABNORMAL) CBC W/DIFF AUTOMATED (06/01/2024 12:17 AM GRAPPLE OPERATOR) WBC 14.37(H) 4.5 - 11.0 x10'3/uL 06/01/2024 12:29 AM [facility] RBC 4.19(L) 4.20 - 5.40 x10'6/uL 06/01/2024 12:29 AM [facility] HGB 13.0 12.0 - 16.0 G/DL 06/01/2024 12:29 AM [facility] HCT 38.5 38.0 - 48.0 % 06/01/2024 12:29 AM [facility] MCV 91.9 81.0 - 99.0 FL 06/01/2024 12:29 AM [facility] MCH 31.0 27.0 - 31.0 PG 06/01/2024 12:29 AM [facility] MCHC 33.8 32.0 - 36.0 G/DL 06/01/2024 12:29 AM [facility] RDW 13.1 11.5 - 14.5 % 06/01/2024 12:29 AM [facility] PLT 333 130 - 400 x10'3/uL 06/01/2024 12:29 AM [facility] MPV 9.9 9.3 - 12.2 FL 06/01/2024 12:29 AM [facility] DIFFERENTIAL TYPE AUTOMATED DIFFERENTIAL 06/01/2024 12:29 AM [facility] NEUTROPHILS % 60.9 % 06/01/2024 12:29 AM [facility] LYMPHOCYTES % 30.1 % 06/01/2024 12:29 AM [facility] MONOCYTES % 7.2 % 06/01/2024 12:29 AM [facility] EOSINOPHILS 0.7 % 06/01/2024 12:29 AM [facility] BASOPHILS 0.5 % 06/01/2024 12:29 AM [facility] IMMATURE GRANS % 0.6 % 06/01/19 12:29 AM [facility] ABS. NEUTROPHILS 8.76(H) 1.80 - 7.70 x10'3/uL 06/01/2024 12:29 AM GRAPPLE OPERATOR [facility] ABS. LYMPHOCYTES 4.33 1.00 - 4.80 x10'3/uL 06/01/2024 12:29 AM GRAPPLE OPERATOR [facility] ABS. MONOCYTES 1.03(H) 0.24 - 0.86 x10'3/uL 06/01/2024 12:29 AM GRAPPLE OPERATOR [facility] ABS. EOSINOPHILS 0.10 0.04 - 0.36 x10'3/uL 06/01/2024 12:29 AM GRAPPLE OPERATOR [facility] ABS. BASOPHILS 0.07 0.01 - 0.08 x10'3/uL 06/01/2024 12:29 AM GRAPPLE OPERATOR [facility] ABS. IMMATURE GRANULOCYTES 0.08 0.00 - 0.49 x10'3/uL 06/01/2024 12:29 AM GRAPPLE OPERATOR [facility] 06/01/2024 12:1 7 AM GRAPPLE OPERATOR Jordin NAVARRO LABORATORY Final Resu lt [facility] [address] [place] [address], [place] [phone] * LIPASE (06/01/2024 12:17 AM GRAPPLE OPERATOR) LIPASE 43 13 - 75 UNITS/L 06/01/2024 2:17 AM GRAPPLE OPERATOR [facility] 06/01/2024 12:1 7 AM GRAPPLE OPERATOR Jordin NAVARRO LABORATORY Final Resu lt [facility] [address] [place] [address], [place] [phone] from Last 3 Months Care Teams Loom Starter Relationship Specialty Start Date End Date Anderson Fitzpatrick CNP [address] [place] [address] PCP - General NURSE PRACTITIONER 09/29/23
--- OUTSIDE RECORDS SUMMARY | 2024-07-02 12:22 | XMS_ITS | Referral Summary ---
Author Organization [facility] Address [address] [place] [address] Care Team Providers Care Licensed Therapist Name Role Phone No, Physician Primary Care Provider [phone] Allergies No known active allergies Medications [id number]-vzty-[id number] 6-dha 30 mg iron-1mg -200 mg capsule [...] needed for pain 40 tablet 01/31/2023 Active vit,[id number] -folic (PRENATABS RX) tablet tabletIndicatio ns:Vitamin Deficiency [...] Language difficulty 03/08/2023 Overview (03/08/2023): Pt speaks Divehi; doesn't speak Honduran. Pt needs career advisor services. 37 weeks gestation of 01/29/2023 Delivery with history of section 2022 Gestational diabetes mellitus (GDM) in third [facility] 01/29/2023 Social History Tobacco Use Types [...] more drinks on one occasion? Never 01/29/2023 [place] [place] Depression Scale Answer Date Recorded [facility] [place] Depression Scale Total 0 01/31/2023 The thought [...] reviewed 2021. Testing performed by: [facility], [address] [place] [address]., [id number] Blood 09/24/2023 4:3 5 PM CDT 09/24/2023 4:50 PM CDT us Brandi NAVARRO LAB BLOOD ORDERABLES Final Result Performing Organization Address City/State/ZIP Co or Phone Number [facility] [address] [place] [address] from Last 3 Months or Most Recently Relevant to Health Maintenance Insurance [facility] Advance Directives For more information, please contact: [phone] * Full Code (Latest Code Status on File) Date Activated Date Inactivated Comments 01/29/2023 5:05 PM 01/31/2023 9:08 PM * Full Code Date Activated Date Inactivated Comments 01/29/2023 1:27 PM 01/29/2023 5:05 PM Full CPR in case of cardiopulmonary arrest Care Teams Licensed Therapist Relationship Specialty Start Date End Date No, Physician PCP - General 01/13/23
--- OUTSIDE RECORDS SUMMARY | 2024-07-02 12:22 | XMS_ITS | Clinical Summary ---
Author Organization [facility] [employer] Address [address] [place] [address] Care Team Providers Care Supervisor Process Testing Name Role Phone Unavailable Primary Care Provider Unavailabl e Source Comments [facility],non-owned Affiliates and Associated Physician Practices is amultiple site organization consisting of ambulatory clinics and hospital sitesin [place], [place], [place] and [place]. This disclosure is being madepursuant to the Care Everywhere program and may not contain all information available regarding this patient. Last updated 18.[facility] [employer] Allergies No known active allergies Medications * [...]
[2024-07-02 13:08] VITALS: BP 123/67; PULSE 84; RESP 18; O2SAT 100
[2024-07-02 13:21] LABS: BEDSIDEPREGUCG Negative (Negative)
[2024-07-02 13:36] LABS: Basophils Absolute Auto 0.1 K/mm3 (0.0-0.1); Basophils Percent Auto 0.6 % (0.2-1.2); Eosinophils Absolute Auto 0.1 K/mm3 (0-0.3); Eosinophils Percent Auto 1.1 % (0-4.4); Hematocrit 36.1 % (37.0-47.0); Hemoglobin 12.1 g/dL (12.0-15.0); Immature Granulocyte Absolute 0.02 K/mm3 (0.00-0.031); Immature Granulocyte Percent A 0.3 % (0-0.5); Lymphocytes Absolute Auto 1.47 K/mm3 (0.9-3.2); Lymphocytes Percent Auto 18.7 % (18.3-44.2); Mean Corpuscular HGB Conc 33.5 g/dl (32-36); Mean Corpuscular Hemoglobin 31.8 pg (26-34); Mean Corpuscular Volume 94.8 fl (80-100); Mean Platelet Volume 10.2 fl (7.4-10.4); Monocytes Absolute Auto 0.6 K/mm3 (0.1-0.6); Monocytes Percent Auto 7.9 % (2.6-8.5); Neutrophils Absolute Auto 5.6 K/mm3 (1.3-6.7); Neutrophils Percent Auto 71.4 % (45.5-73.1); Platelet Count Result 268 k/mm3 (150-375); Red Blood Count 3.81 M/mm3 (4.2-5.4); Red Cell Distribution Width 13.2 % (11.5-14.5); White Blood Count 7.9 K/mm3 (4.5-10.0)
[2024-07-02 14:18] LABS: Alanine Aminotransferase 27 U/L (6-35); Albumin Level 4.4 g/dL (3.5-5.1); Alkaline Phosphatase 87 U/L (38-126); Anion Gap 11 mmol/L (4-12); Aspartate Amino Transferase 31 U/L (14-36); Bilirubin,Total 0.5 mg/dL (0.2-1.3); Blood Urea Nitrogen 12 mg/dL (7-17); Carbon Dioxide 27 mmol/L (22-30); Chloride 103 mmol/L (98-107); Estimated CRCL calculation 108 ml/min; Estimated Glomerular Filt Rate > 60; Glucose 101 mg/dL (65-110); Potassium 3.5 mmol/L (3.4-5.0); Sodium 141 mmol/L (137-145)
[2024-07-02 14:22] VITALS: BP 114/62; PULSE 76; RESP 18; O2SAT 100
[2024-07-02 14:48] LABS: Erythrocyte Sedimentation Rate 44 mm/hr (0-20)
== END 2024-07-02 14:39 | disposition home or self-care (01) ==
PROVIDERS: Emergency Provider Emergency Medicine; PCP Registered Nurse
DX: M54.6 Pain in thoracic spine (principal); R07.89 Other chest pain; E11.9 Type 2 diabetes mellitus without complications; M79.7 Fibromyalgia; Z90.49 Acquired absence of other specified parts of digestive tract; Z79.84 Long term (current) use of oral hypoglycemic drugs; Z79.899 Other long term (current) drug therapy
CPT/HCPCS: 36415; 71046; 80053; 81025; 85025; 85652; 99283